=== PATIENT | male | born 1950 | race Caucasian/White ===

== ENCOUNTER 2018-09-25 20:41 | Inpatient (IN) ==
--- NOTE | 2018-09-25 21:37 | Diag Imaging Result Doc PS360 ---
EXAM: CHEST-2 VIEWS - 09/25/2018 HISTORY: weakness TECHNIQUE: Chest two views COMPARISON: None. FINDINGS: There is cardiomegaly. The lungs appear essentially clear. There is no pleural effusion or pneumothorax identified. There is S-shaped thoracic scoliosis noted. IMPRESSION: Cardiomegaly. No other evidence of acute disease. Electronically signed by Newton Jalloh 09/25/2018 9:35 PM
[2018-09-25 21:41] LABS: BASO# 0.01 X1000 (0.0-0.2); BASO% 0.1 % (0.0-0.8); EOS# 0.04 X1000 (0.0-0.7); EOS% 0.5 % (0.0-10.0); HEMOGLOBIN 13.9 g/dL (14.0-18.0); IMM GRAN# 0.02 X1000 (0.0-0.04); IMM GRAN% 0.3 % (0.0-0.5); LYMPH# 1.46 X1000 (1.2-3.4); LYMPH% 18.8 % (20.5-51.1); MCH 32.2 PG (27-31); MCHC 34.8 g/dL (33-37); MCV 92.6 FL (81-99); MONO# 0.86 X1000 (0.11-0.59); MONO% 11.1 % (1.7-9.3); MPV 11.4 FL (7.4-10.4); NEUT# 5.38 X1000 (1.4-6.5); NEUT% 69.2 % (42.2-75.2); PLT 197 X1000 (130-400); RBC 4.32 XMIL (4.7-6.1); RDW 12.7 % (11.5-14.5); WBC 7.77 X1000 (4.8-10.8)
[2018-09-25 21:49] LABS: INR 0.93; PROTIME 13.2 Seconds (11.0-16.0)
[2018-09-25 21:50] LABS: PTT 33.1 Seconds (22.3-41.8)
[2018-09-25 22:16] LABS: ALB/GLOB RATIO 1.2; ALBUMIN 3.8 g/dL (3.5-5.0); CREATININE 8.2 mg/dL (0.7-1.2); POTASSIUM 5.8 mmol/L (3.5-5.1); TOTAL BILIRUBIN 0.81 mg/dL (0.20-1.00)
[2018-09-25 22:47] LABS: CK INDEX 0.6 (0.0-2.5); CK-MB 10.17 ng/mL (0.0-5.0)
[2018-09-26] MEDS ORDERED: MORPHINE IV ONE (00:20)
[2018-09-26] MEDS ORDERED: CALCIUM GLUCONATE 1 GM in NS 50 ML IV ONE (01:28)
[2018-09-26] MEDS ORDERED: KAYEXALATE PO ONE (01:28)
[2018-09-26] MEDS ORDERED: NS 1,000 ML IV ONE (01:28)
[2018-09-26] MEDS ORDERED: SODIUM BICARBONATE 8.4% IV ONE (01:28)
--- NOTE | 2018-09-26 01:34 | PROVIDER DOCUMENTATION ---
This chart was entered by Magali Soria Scribe, acting as scribe for Gerald Matos MD. HPI-General Adult - General Chief Complaint: Weakness Stated Complaint: FALL Time Seen by Provider: 09/26/18 00:02 Source: patient, family - History of Present Illness -Gen Adult Nature of Presenting Problems: 68 yom presents to er w/ family w/ c/o falling 2x the past 3 days. pt fell saturday, acc to daughter and pt didn't remember falling and was confused. pt fell tonight in bathroom. pt was seated in handicap chair and it broke and fell on bathroom floor. pt using wheelchair this week due to falling. pt is type 2 dm and blood sugar has been high, was last checked 480-490 in june. pt daughter checked sugar today and it was 240. pt states thighs hurt and 8/10 in pain. pt also has rash on chest that appeared this past week and is having tremors. family is at bedside. pt followed by dr. cabrera. pt denies loc and head injury. Review of Systems - Adult - REVIEW OF SYSTEMS - ADULT Constitutional: reports: no symptoms reported. denies: chills, fever Eyes: reports: no symptoms reported Ears, Nose, Mouth & Throat: reports: no symptoms reported Cardiovascular: reports: no symptoms reported. denies: chest pain Respiratory: reports: no symptoms reported. denies: shortness of breath Gastrointestinal: reports: no symptoms reported. denies: abdominal pain, diarrhea, nausea, vomiting Genitourinary: reports: no symptoms reported Musculoskeletal: reports: see HPI, other (bilat thigh pain) Integumentary: reports: see HPI, rash (chest). denies: hair loss, itching, mole changes, skin sores/ulcer, skin thickening Neurological: reports: see HPI, loss of balance, other (fall x2 in 3 days). denies: ataxia, headache/migraines, seizure, slurred speech, syncope Psychiatric: reports: no symptoms reported Endocrine: reports: no symptoms reported Hematologic/Lymphatic: reports: no symptoms reported Allergic/Immunologic: reports: no symptoms reported All Other Systems: Reviewed and Negative Past History - Adult - PAST MEDICAL HISTORY-ADULT Review of Records: reports: Old Records Reviewed, Nursing Assessment Review, Medications Reviewed, Social history reviewed & non-contributory. Major Childhood Illnesses: reports: denies history Cardiovascular: reports: denies history Respiratory: reports: denies history Gastrointestinal: reports: denies history Obstetrical/Gynecological: reports: denies history Genitourinary: reports: denies history Musculoskeletal: reports: denies history Neurological: reports: denies history Endocrine/Immune: reports: denies history, Diabetes Other Conditions: reports: denies history - IMMUNIZATION STATUS Childhood Immunizations: See Nurse Assessment Flu Vaccine: See Nurse Assessment - FAMILY HISTORY Family History: reviewed, not pertinent Physical Exam-General - PHYSICAL EXAM-ADULT Initial Vital Signs Reviewed: Yes - CONSTITUTIONAL General Appearance: appears well, alert, no apparent distress, obese. negative: anxious, lethargic, slow to respond - EYES Eyes: PERRL/EOMI, pink conjunctivae - HEAD, EARS, NOSE, MOUTH & THROAT HENMT: normocephalic/atraumatic, moist mucous membranes, normal ENT inspection - NECK Neck: non-tender, full range of motion, supple, normal inspection - RESPIRATORY Respiratory: chest non-tender, lungs clear, normal breath sounds - CARDIOVASCULAR Cardiovascular: normal peripheral pulses, regular rate, rhythm - GASTROINTESTINAL (ABDOMEN) Abdominal Exam: normal bowel sounds, non tender, soft - LYMPHATIC Lymphatic: no adenopathy - MUSCULOSKELETAL Back Exam: normal inspection, no CVA tenderness, no vertebral tenderness Extremity: normal range of motion, non-tender, normal inspection, pedal edema (lower extremities.). negative: no pedal edema - SKIN Integumentary: normal color, normal turgor, warm/dry - NEUROLOGIC Neurologic: grossly normal, no motor/sensory deficits - PSYCHIATRIC Psych/Mental Status: normal mood/affect, normal thought content, normal thought process, oriented x 3 Progress - PLAN OF CARE/RESULTS Progress/Plan/Lab Results: Vital Signs - 8 hr 09/25/18 21:01 09/25/18 23:47 Temperature 97.8 F 97.6 F Pulse Rate 76 71 Respiratory Rate 18 20 Blood Pressure 111/67 150/89 O2 Sat by Pulse Oximetry 97 98 Laboratory Results - last 24 hr 09/25/18 09/25/18 09/25/18 21:20 21:20 21:20 WBC 7.77 RBC 4.32 L Hgb 13.9 L Hct 40.0 L MCV 92.6 MCH 32.2 H MCHC 34.8 RDW Std Deviation 12.7 Plt Count 197 MPV 11.4 H Immature Gran % (Auto) 0.3 Neut % (Auto) 69.2 Lymph % (Auto) 18.8 L Jerome % (Auto) 11.1 H Eos % (Auto) 0.5 Baso % (Auto) 0.1 Immature Gran # (Auto) 0.02 Neut # (Auto) 5.38 Lymph # (Auto) 1.46 Jerome # (Auto) 0.86 H Eos # (Auto) 0.04 Baso # (Auto) 0.01 PT 13.2 INR 0.93 PTT (Actin FS) 33.1 Sodium 137 Potassium 5.8 H Chloride 99 Carbon Dioxide 20 L Anion Gap 18 BUN 64 H Creatinine 8.2 H Estimated GFR/1.73 m2 7 BUN/Creatinine Ratio 8 Glucose 113 H POC Glucose Calculated Osmolality 293 Calcium 9.0 Total Bilirubin 0.81 AST 58 H ALT 157 H Alkaline Phosphatase 133 H Creatine Kinase 1593 H Creatine Kinase Index 0.6 CK-MB (CK-2) 10.17 H Troponin T Total Protein 7.0 Albumin 3.8 Globulin 3.2 Albumin/Globulin Ratio 1.2 09/25/18 09/25/18 21:20 21:27 WBC RBC Hgb Hct MCV MCH MCHC RDW Std Deviation Plt Count MPV Immature Gran % (Auto) Neut % (Auto) Lymph % (Auto) Jerome % (Auto) Eos % (Auto) Baso % (Auto) Immature Gran # (Auto) Neut # (Auto) Lymph # (Auto) Jerome # (Auto) Eos # (Auto) Baso # (Auto) PT INR PTT (Actin FS) Sodium Potassium Chloride Carbon Dioxide Anion Gap BUN Creatinine Estimated GFR/1.73 m2 BUN/Creatinine Ratio Glucose POC Glucose 129 H Calculated Osmolality Calcium Total Bilirubin AST ALT Alkaline Phosphatase Creatine Kinase Creatine Kinase Index CK-MB (CK-2) Troponin T 0.064 Total Protein Albumin Globulin Albumin/Globulin Ratio Orders Category Date Time Status Cardiac Monitoring DIRECTED Care 09/25/18 21:04 Active Finger Stick Blood Sugar (ED) DIRECTED Care 09/25/18 21:04 Active Oxygen Therapy- ED Nursing DIRECTED Care 09/25/18 21:04 Active Saline Loc NOW Care 09/25/18 21:04 Active CHEST-2 VIEWS [RAD] Stat Exams 09/25/18 21:05 Completed CBC WITH ELECTRONIC DIFF [HEME] Stat Lab 09/25/18 21:20 Completed CK PROFILE [SP CHEM] Stat Lab 09/25/18 21:20 Completed COMPREHENSIVE METABOLIC PANEL [CHEM] Stat Lab 09/25/18 21:20 Completed PROTIME WITH INR [COAG] Stat Lab 09/25/18 21:20 Completed PTT [COAG] Stat Lab 09/25/18 21:20 Completed TROPONIN T Stat Lab 09/25/18 21:20 Completed Altered Mental Status Stat Oth 09/25/18 21:04 Ordered EKG [EKG] Stat Ther 09/25/18 21:04 Ordered Result Diagrams: 09/25/18 21:20 09/25/18 21:20 - EKG 1 Time of EKG reading by physician:: 20:58 EKG Read and Signed by:: Gerald Matos EKG Interpretation (*Must complete 3 of following elements*): Abnormal Rate: 76 Rhythm: NSR Thicket: left QRS: RBB NV Interval: normal Departure - Departure Date of Disposition Decision: 09/26/18 Time of Disposition Decision: 01:33 DIAGNOSIS: Hyperkalemia CKD (chronic kidney disease) Qualifiers: Chronic kidney disease stage: unspecified stage Qualified Code(s): N18.9 - Chronic kidney disease, unspecified Rhabdomyolysis Qualifiers: Rhabdomyolysis type: non-traumatic Qualified Code(s): M62.82 - Rhabdomyolysis Fall Qualifiers: Encounter type: initial encounter Qualified Code(s): W19.XXXA - Unspecified fall, initial encounter Disposition: ADMITTED INPATIENT 09 Certified Medical Emergency: Emergent Condition: Fair Referrals and Follow-Ups: Charanjit Cabrera MD [Primary Care Provider] - - Critical Care Note This patient required my direct & personal management of CC.: No Attestation - Physician/ HARINDER Attestation Patient care was provided by Advanced Practice Provider:: No The physician spent face to face time with patient:: Yes Advanced Practice Provider documentation review:: Supervising physician onsite and consulted in the evaluation and care of this patient. The physician did have a face to face encounter with the patient. This chart was documented by the indicated scribe, (Magali Soria Scribe) and accurately reflects the services I performed and decisions made by , Gerald Matos MD, as attested by the provider's signature.
[2018-09-26] MEDS ORDERED: TYLENOL PO PRN (02:01)
[2018-09-26] MEDS ORDERED: ZOFRAN IV PRN (02:01)
[2018-09-26] MEDS: HEPARIN SUBQ SCH ×3 (02:45→18:38)
[2018-09-26 03:43] LABS: HEMOGLOBIN A1C 8.9 % (4.8-6.0)
--- NOTE | 2018-09-26 05:15 | HISTORY AND PHYSICAL ---
CHIEF COMPLAINT: Weakness with 2 recent falls. HISTORY OF PRESENT ILLNESS: This is a 68-year-old male who comes to the emergency room with his family. He had a complaint of falling 2 times in the past 3 days. Apparently he fell on Saturday. According to the daughter he did not remember falling and was somewhat confused at that time, however, did not seek medical attention. Tonight he was sitting in the shower on the handFlatBurgerp chair which collapsed and he fell on the bathroom floor. He did not hit his head. He did not have loss of consciousness. He did not have any real complaint with the fall other than just feeling weak. He stated that he felt like the lower portions of his legs just were not responding as well as he wanted them to. He has a history of diabetes mellitus type 2, however, he does not check his blood sugar very frequently. Apparently it was in the 480 or 490 range in June. They checked his blood sugar today and it was found 240. The patient is followed outpatient by Dr. Cabrera; reportedly had labs around 9 months ago, however, we are unsure of his baseline. In the emergency room his laboratory data showed a BUN of 64 and a creatinine of 8.2. He will be admitted for further evaluation and treatment. PAST MEDICAL HISTORY: Diabetes mellitus type 2, diabetic neuropathy, hypertension, hyperlipidemia. PREVIOUS SURGICAL HISTORY: Bilateral knee arthroscopy. SOCIAL HISTORY: He is from [place], [place]. He has recently moved here. His son is at bedside. He has around 3 liquor drinks a night. No illicit drugs, no tobacco. FAMILY HISTORY: Positive for diabetes mellitus in both parents. He denied any cardiac issues or cancers in first-degree relatives. ALLERGIES: Amoxicillin. HOME MEDICATIONS: 1. Neurontin 300 mg p.o. at bedtime. 2. Lisinopril 20 mg p.o. b.i.d. 3. Meclizine 25 mg p.o. at bedtime. 4. Metformin 1000 mg p.o. b.i.d. 5. Atorvastatin 10 mg p.o. daily. 6. Glipizide 10 mg p.o. daily. REVIEW OF SYSTEMS: A 14-point review of systems was conducted with the patient. Pertinent positives listed above in the HPI. All other systems reviewed and found to be negative. PHYSICAL EXAMINATION: VITAL SIGNS: Temperature 97.6, pulse 71, respirations 20, blood pressure 150/89, oxygen saturation 98% on room air. GENERAL: A very pleasant 68-year-old male lying in the ER stretcher, answers all questions appropriately. Son is at bedside, very attentive. The patient is in no acute distress. HEENT: The head is atraumatic and normocephalic. Pupils are equal, round, and reactive to light. Extraocular eye movements are intact. The sclerae are anicteric. Conjunctivae are pink. Oral mucosa is moist. NECK: Supple. No JVD, no thyromegaly. Trachea is midline. No cervical lymphadenopathy. CARDIAC: S1, S2 appreciated. A 2/6 systolic ejection murmur. No gallops, no rubs. LUNGS: Clear to auscultation bilaterally. No rhonchi, wheezes or rales. Symmetrical rise and fall with respirations. ABDOMEN: Protuberant. Soft. Nondistended and nontender. Bowel sounds present in all 4 quadrants. Normoactive. No pulsatile masses, no organomegaly. EXTREMITIES: No clubbing or cyanosis. Thickening of bilateral lower extremity nail beds noted. Decreased pedal pulses bilaterally. Trace nonpitting edema of bilateral lower extremities mid calf to foot. GENITOURINARY: No bladder distention. Otherwise deferred. NEUROLOGICAL: Alert and oriented x3. Cranial nerves II through XII grossly intact. DIAGNOSTIC DATA: Chest x-ray shows cardiomegaly. EKG showed a right bundle- branch block with left axis deviation, rate of 76. CT of the head results are still pending. Hip and pelvis x-ray: No acute fracture. LABORATORY DATA: WBC 7.77, hemoglobin 13.9, hematocrit 40, platelet count 197,000. Coagulations within normal limits. Sodium 137, potassium 5.8, chloride 99, carbon dioxide 20, BUN 64, creatinine 8.2, glucose 113. CK 1593. AST 58, ALT 157. ASSESSMENT AND PLAN: 1. Acute kidney injury versus acute kidney injury on chronic kidney disease. We do not know the patient's baseline. Will give normal saline at 125 mL/hour, consult Dr. Velazco. The patient was mildly hyperkalemic. This was treated. Will recheck potassium this morning. Send urine samples, also collect urine sodium. Retroperitoneal ultrasound to rule out obstruction. 2. Hyperlipidemia. Continue atorvastatin. 3. Hypertension. Hold lisinopril as this likely caused some of the problems with the patient's kidneys. Will add hydralazine 10 mg IV p.r.n. for a systolic blood pressure greater than 165. 4. Diabetes mellitus type 2. Hold metformin and sulfonylurea. Start sliding scale insulin with fingerstick blood sugar. Check hemoglobin A1c. 5. Will also check echocardiogram related to the patient's murmur and cardiomegaly. We do not have a baseline. The patient had thickening of his nail beds and decreased pulses. Will check an arterial Doppler to rule out peripheral arterial disease. 6. Further recommendations per the patient's clinical course. Dictated by RALF Saul for Comfort Lyman MD cc: RALF Saul MD Rodney W. Harney, MD Exam of patient done by me revealed + 1 edema in leg, 2-3/ ESM and mild bibasilar creps. I suspect that his presentation is more of an acute on chronic kidney insufficiency picture 2/2 both diabetic and hypertensive nephropathy. He also an obstructive uropathic picture and will need to be on flomax if PVR>100. Pt's clinical picture was also suggestive of PAD and will require an elective work up to rule out CAD at a later date. JARRELL
[2018-09-26 06:58] LABS: URINE SOURCE VOIDED
[2018-09-26 07:00] LABS: BILIRUBIN URINE NEGATIVE (NEGATIVE); BLOOD URINE MODERATE (NEGATIVE); COLOR YELLOW; GLUCOSE URINE TRACE mg/dL (NEGATIVE); KETONE URINE NEGATIVE (NEGATIVE); LEUKOCYTES URINE LARGE (NEGATIVE); NITRITE URINE NEGATIVE (NEGATIVE); PH URINE 5.5; PROTEIN URINE 100 mg/dL (NEGATIVE); SP GRAVITY URINE 1.011; TURBIDITY URINE TURBID (CLEAR); UROBILINOGEN URINE NORMAL (NORMAL)
--- NOTE | 2018-09-26 07:03 | EKG Report ---
Test Performed on : 09/25/2018 8:58:20 PM Test Reason : WEAKNESS Blood Pressure : / mmHG Vent. Rate : 076 BPM Atrial Rate : 076 BPM P-R Int : 182 ms QRS Dur : 160 ms QT Int : 430 ms P-R-T Axes : 032 -76 -13 degrees QTc Int : 483 ms Normal sinus rhythm. Left axis deviation Right bundle branch block Abnormal ECG No previous ECGs available Unconfirmed Result
[2018-09-26 07:09] LABS: UR EPITHELIAL CELLS >10 /HPF (<10); URINE BACTERIA NEGATIVE /HPF; URINE RBC TNTC /HPF (<10); URINE WBC TNTC /HPF (<10)
--- NOTE | 2018-09-26 07:12 | Diag Imaging Result Doc PS360 ---
EXAM: CT HEAD W/O CONTRAST 09/26/2018 HISTORY: fall TECHNIQUE: This exam was performed using automated exposure control, adjustment of mA or kV according to patient size, and/or use of iterative reconstruction technique. COMMENT: There are calcifications in the globus pallidus bilaterally. There is no evidence of mass effect, bleed, or abnormal extra-axial fluid collection. There is no evidence of acute bony disease. There is persistence the metopic suture. The paranasal sinuses are clear. IMPRESSION: No evidence of acute intracranial disease. Electronically signed by Kirit Barber 09/26/2018 7:10 AM
[2018-09-26 07:55] LABS: UR CREAT RANDOM 103.2 mg/dL (14-26); UR PROT RANDOM 171.1 mg/dL
[2018-09-26 08:01] LABS: URINE YEAST PRESENT
--- NOTE | 2018-09-26 08:02 | Diag Imaging Result Doc PS360 ---
EXAM: PELVIS INDICATION: fall, hip pain TECHNIQUE: One view COMPARISON: None. FINDINGS: No discrete fracture or dislocation is appreciated. There is superior joint space narrowing at the left hip. There is mild bone spurring at the acetabular roofs bilaterally. Surrounding soft tissues are essentially unremarkable. IMPRESSION: No acute osseous abnormality appreciated. Electronically signed by Layo Soria 09/26/2018 8:00 AM
[2018-09-26 09:00] LABS: CALCIUM 8.2 mg/dL (8.8-10.2); CREATININE 8.7 mg/dL (0.7-1.2); MAGNESIUM 2.1 mg/dL (1.5-2.7); POTASSIUM 5.8 mmol/L (3.5-5.1)
[2018-09-26] MEDS: LIPITOR PO SCH (09:44)
--- NOTE | 2018-09-26 10:28 | Diag Imaging Result Doc PS360 ---
EXAM: US RENAL 2 (RETROPER) COMPLETE INDICATION: obstruction? TECHNIQUE: COMPARISON: None. FINDINGS: The kidneys are grossly normal in echotexture with no renal mass or hydronephrosis. The right kidney measures 13.8 cm and the left kidney measures 14.6 cm in the greatest longitudinal axes. Both renal cortices measure up to 1.7 cm in thickness. The urinary bladder is nondistended. Incidental note is made of shadowing stones in the gallbladder lumen. The gallbladder is contracted resulting in a thickened wall. The common bile duct is nondilated. There is trace fluid adjacent to the gallbladder. IMPRESSION: 1.Unremarkable kidneys. No evidence of hydronephrosis. 2.Incidental cholelithiasis with trace fluid adjacent to the gallbladder. Please correlate clinically. Electronically signed by Layo Soria 09/26/2018 10:26 AM
[2018-09-26] MEDS ORDERED: D50W SYRINGE IV ONE (11:34)
[2018-09-26] MEDS ORDERED: ALBUTEROL 0.5% INH CONC FOR HYPERKALEMIA INH ONE (11:35)
[2018-09-26] MEDS ORDERED: HUMULIN R IV ONE (11:35)
[2018-09-26] MEDS ORDERED: ALBUTEROL 0.5% INH CONC FOR HYPERKALEMIA ONE (14:21)
[2018-09-26 15:34] LABS: ALBUMIN 3.1 g/dL (3.5-5.0); CALCIUM 7.8 mg/dL (8.8-10.2); CREATININE 8.8 mg/dL (0.7-1.2); PHOSPHORUS 4.7 mg/dL (2.7-4.5); POTASSIUM 5.5 mmol/L (3.5-5.1)
--- NOTE | 2018-09-26 16:46 | ECHO REPORT ---
ORDER DATE: 09/26/2018 INDICATION FOR THE STUDY: Diabetes, hypertension, evaluate LV function. FINDINGS: 1. The right atrium is moderately enlarged with a dimension of 4.9 cm. 2. Mild tricuspid regurgitation. RV systolic pressure is 62 suggesting pulmonary hypertension. 3. The right ventricle appears enlarged with mild reduction in RV systolic function. 4. Trace pulmonic insufficiency. 5. Mild left atrial enlargement with a volume index of 29 and a dimension of 4 cm. 6. No mitral valve prolapse. Mild mitral regurgitation. There is no evidence of mitral stenosis. 7. Upper limits of normal LV size with a dimension of 5.7 cm. Mild to moderate left ventricular hypertrophy with a posterior and interventricular septal wall thickness of 1.4 cm each. Normal LV systolic function. Estimated EF of 55% to 60% with normal wall motion. 8. Aortic valve is calcified with restriction in motion consistent with severe aortic stenosis. The peak gradient across valve is 64 with a mean of 46. The valve area is 0.8 cm2 by the continuity equation. There is mild aortic insufficiency. 9. Aorta appears normal in visualized segments. 10. No pericardial effusion seen. cc: MD Elton Davison CRNP
--- NOTE | 2018-09-26 17:18 | NEPHROLOGY CONSULTATION ---
DATE: 09/26/2018 REASON FOR CONSULTATION: Acute kidney injury. HISTORY OF PRESENT ILLNESS: Mr. Severino is a 68-year-old man, who has lived in [place] for only several months. He was brought to the emergency room by his family because of falling. He has had 2 falls within the last week. He spent several hours on the floor during his first fall. He did not have loss of consciousness. He states his fall happened today because he got tangled up with a seat that he had in the shower. His appetite has been okay. No nausea or vomiting. He does have swelling in the legs that has been present at least several weeks. No chills, fevers, sweats, night sweats, etc. He has no history of kidney disease and has been seen in [place] only briefly by Dr. Charanjit Cabrera, but kidney problems were not mentioned. We have reached out to his office, but they were closed already for the day. He does not monitor his diabetes with any sort of regularity, and his medication follow-up is dubious. He has been taking his gabapentin and does relate some gait instability. PAST MEDICAL HISTORY: Diabetes, hypertension, hyperlipidemia, alcoholism. HOME MEDICATIONS: Include gabapentin, lisinopril, meclizine, metformin, atorvastatin, glipizide. SOCIAL HISTORY: As above. He does not use tobacco. He recently moved here from the [place] area FAMILY HISTORY: Not helpful otherwise. REVIEW OF SYSTEMS: Not helpful otherwise. PHYSICAL EXAMINATION: Blood pressure 126/66, heart rate 76, respirations 20, afebrile. Generally, he is an elderly man, appears older than his stated age, but no acute distress. Skin is warm and dry. Conjunctivae are pink. Pupils are equal. Oropharynx is clear. Normal tongue. Normal teeth. Neck veins are not appreciated. Trachea is midline. PMI nondisplaced, regular rate and rhythm without murmurs, rubs, or gallops. Lungs have equal breath sounds, no crackles or wheezes. Abdomen is soft, nontender. Bowel sounds present. No organomegaly or masses. Extremities have 1+ edema with venous stasis changes. No clubbing or cyanosis. Neurologic exam is grossly nonfocal. IMPRESSION: 1. Acute kidney injury. Etiology is not obvious. Renal ultrasound with normal size kidneys and normal echotexture, 1.7 cm of cortex bilaterally, no hydronephrosis. His urine today had 2+ protein and 2+ blood. Urine protein/creatinine ratio 1.7. Urine sodium was 58. We will continue with IV fluid challenge through the day today. I will attempt to obtain the old lab data from Dr. Cabrera's office when available. 2. His CK was moderately elevated at 1593, and it is certainly possible that he has resolving rhabdomyolysis. 3. His lisinopril, metformin, gabapentin, and atorvastatin have all been appropriately withheld. Continue his IV fluids and we will reassess in the morning. cc: Isidro Velazco MD
[2018-09-26 18:28] LABS: URINE SOURCE CATH
[2018-09-26 18:31] LABS: BILIRUBIN URINE NEGATIVE (NEGATIVE); BLOOD URINE MODERATE (NEGATIVE); COLOR YELLOW; GLUCOSE URINE TRACE mg/dL (NEGATIVE); KETONE URINE NEGATIVE (NEGATIVE); LEUKOCYTES URINE LARGE (NEGATIVE); NITRITE URINE NEGATIVE (NEGATIVE); PROTEIN URINE 100 mg/dL (NEGATIVE); SP GRAVITY URINE 1.008; TURBIDITY URINE HAZY (CLEAR); UROBILINOGEN URINE NORMAL (NORMAL)
[2018-09-26 18:38] LABS: UR EPITHELIAL CELLS >10 /HPF (<10); URINE BACTERIA NEGATIVE /HPF; URINE RBC TNTC /HPF (<10); URINE WBC TNTC /HPF (<10)
[2018-09-26] MEDS: NS 1,000 ML IV SCH (18:38)
[2018-09-26 18:52] LABS: URINE CASTS NONE SEEN; URINE CRYSTALS NONE SEEN; URINE SMALL ROUND CELLS NONE SEEN; URINE YEAST PRESENT
[2018-09-26] MEDS: HUMULIN R SUBQ SCH (22:17)
[2018-09-27] MEDS: HEPARIN SUBQ SCH ×2 (06:47→21:41)
[2018-09-27] MEDS: HUMULIN R SUBQ SCH ×2 (06:48→21:39)
[2018-09-27 06:50] LABS: BASO# 0.01 X1000 (0.0-0.2); BASO% 0.2 % (0.0-0.8); EOS# 0.06 X1000 (0.0-0.7); HEMATOCRIT 36.2 % (42.0-52.0); HEMOGLOBIN 12.5 g/dL (14.0-18.0); IMM GRAN# 0.02 X1000 (0.0-0.04); IMM GRAN% 0.3 % (0.0-0.5); LYMPH# 1.38 X1000 (1.2-3.4); LYMPH% 22.9 % (20.5-51.1); MCH 32.6 PG (27-31); MCHC 34.5 g/dL (33-37); MCV 94.5 FL (81-99); MONO# 0.72 X1000 (0.11-0.59); MONO% 11.9 % (1.7-9.3); MPV 11.1 FL (7.4-10.4); NEUT# 3.84 X1000 (1.4-6.5); NEUT% 63.7 % (42.2-75.2); PLT 171 X1000 (130-400); RBC 3.83 XMIL (4.7-6.1); RDW 12.6 % (11.5-14.5); WBC 6.03 X1000 (4.8-10.8)
[2018-09-27 07:28] LABS: ALBUMIN 3.1 g/dL (3.5-5.0); CALCIUM 7.2 mg/dL (8.8-10.2); CREATININE 9.7 mg/dL (0.7-1.2); PHOSPHORUS 5.6 mg/dL (2.7-4.5); POTASSIUM 5.5 mmol/L (3.5-5.1)
[2018-09-27] MEDS ORDERED: HEPARIN IV PRN (08:41)
[2018-09-27] MEDS ORDERED: NS 2,000 ML MISC PRN (08:41)
[2018-09-27] MEDS ORDERED: TIGHT: 0.2 ML/HR FOR DIALYSIS MISC PRN (08:41)
[2018-09-27] MEDS: NS 1,000 ML IV SCH (08:53)
[2018-09-27] MEDS ORDERED: AMIDATE ONE (09:04)
[2018-09-27] MEDS ORDERED: HEPARIN ONE (09:21)
[2018-09-27] MEDS ORDERED: NS 250 ML ONE (09:22)
[2018-09-27] MEDS ORDERED: XYLOCAINE 1% ONE (09:22)
[2018-09-27] MEDS ORDERED: VANCOMYCIN 1 GM/NS 1 GM/250 ML IVPB ONE (09:22)
[2018-09-27] MEDS ORDERED: KETAMINE ONE (09:25)
--- NOTE | 2018-09-27 09:27 | GENERAL SURGERY CONSULTATION ---
DATE: 09/27/2018 PRIMARY COMPLAINT: Acute renal failure. HISTORY: 68-year-old admitted with recent falls. He has diabetes mellitus, hypertension, hyperlipidemia. He is noted to have worsening of his renal function with a creatinine up to 9.7. Potassium 5.. I have been asked to place a tunneled catheter for acute dialysis. PAST SURGICAL HISTORY: Previous surgery includes knee arthroscopy. SOCIAL HISTORY: He has moved here from [place]. He is . He does drink 3 drinks. Denies tobacco or illicit drugs. He has a daughter is bedside currently. FAMILY HISTORY: Pertinent for diabetes. MEDICATIONS: Listed. ALLERGIES: He is allergic to amoxicillin. REVIEW OF SYSTEMS: Pertinent for his recent falls of uncertain etiology. EXAM: Vital Signs: He is afebrile. Heart rate 73, blood pressure 120/70. Neck: No cervical adenopathy. Lungs: Bilateral breath sounds. Heart: Regular rate and rhythm. Abdomen: Soft. Extremities: He does have some peripheral edema. Neurologic: He is awake and alert. ASSESSMENT: Acute renal failure. PLAN: A tunnel dialysis catheter is requested by Dr. Velazco. We will plan to proceed today. cc: [place] Granda MD
[2018-09-27] MEDS ORDERED: XYLOCAINE-MPF 2% ONE (09:38)
[2018-09-27] MEDS ORDERED: EPHEDRINE ONE (09:38)
--- NOTE | 2018-09-27 15:25 | OPERATIVE NOTE ---
PROCEDURE DATE: 09/27/2018 PROCEDURE: Right-sided total dialysis catheter placement with ultrasound and fluoroscopic guidance. SURGEON: [place] Granda MD. SHEET HEATER: Rachel Blanca. PREOPERATIVE DIAGNOSIS: Acute renal failure. POSTOPERATIVE DIAGNOSIS: Acute renal failure. DESCRIPTION OF PROCEDURE: Satisfactory general anesthesia was achieved. An LMA was used. The right side of the neck and upper anterior chest were prepped and draped in a sterile fashion. We anesthetized the skin of the neck. We used an ultrasound to guide our location into the internal jugular vein. The local was then used to anesthetize the skin, an 11 stab blade was used. We then accessed the internal jugular vein. We then passed the guidewire into the superior vena cava under fluoroscopic guidance. We had chosen a 24 cm precurved catheter, a [place]. We anesthetized the skin below the clavicle, made a stab incision, and tunnelled a catheter from the subclavian incision up to the neck incision. We then dilated the tract sequentially and passed the dilator and introducer sheath over the guidewire. We removed the dilator and guidewire and introduced the sheath GlidePath past catheter into the superior vena cava. We were able to aspirate and irrigate each lumen easily. We then flushed or used strong heparin 5000 units/mL in each lumen, putting 1.9 mL in one lumen and 1.9 in other lumen. We secured the flange to the skin with a nylon a 3-0 nylon. We then closed the skin of the neck incision with a 4 Polysorb subcuticular stitch. Steri-Strips, and OpSite dressings were applied. He tolerated it well. Was sent to the recovery room in satisfactory condition. cc: MD Isidro Lopez MD
--- NOTE | 2018-09-27 16:10 | NEPHROLOGY PROGRESS NOTE ---
DATE: 09/27/2018 SUBJECTIVE: He has no new complaints today. No shortness of breath. No nausea or vomiting. OBJECTIVE: Vital Signs: Blood pressure 120/70, heart rate 91, respiration 18, afebrile. Intake 780 mL. Output 375 mL. General: No acute distress. Skin: Warm and dry. Neck: Neck veins are 6 to 8 cm. Trachea is midline. Heart: Regular. No gallops or murmurs. Lungs: Have equal breath sounds. No crackles or wheezes. Abdomen: Soft, nontender. Bowel sounds present. Extremities: With 2+ edema. No clubbing or cyanosis. IMPRESSION: Acute kidney injury. Presumed. Low urine output and rising BUN and creatinine despite intravenous fluids. No obstruction by ultrasound. I counseled the patient and his family regarding the progression of his illness. I have asked Dr. Granda to place a tunneled dialysis catheter and we will begin treatment today with dialysis. We will check complements, ANCAs, RADHA, hepatitis profile etc. His initial urine had a large number of white cells and red blood cells with moderate protein. Culture thus far is negative. If he does not have an infection he may require a kidney biopsy. We discussed this. cc: Isidro Velazco MD
[2018-09-27 23:41] LABS: ALB/GLOB RATIO 1.1; ALBUMIN 3.3 g/dL (3.5-5.0); DIRECT BILIRUBIN 0.3 mg/dL (0.00-0.20); TOTAL BILIRUBIN 0.53 mg/dL (0.20-1.00); TOTAL PROTEIN 6.4 g/dL (6.3-8.3)
[2018-09-28 00:38] LABS: CK INDEX 0.7 (0.0-2.5); CK-MB 4.41 ng/mL (0.0-5.0)
[2018-09-28] MEDS ORDERED: PHENOBARBITAL IV ONE (01:25)
[2018-09-28] MEDS: NS 1,000 ML IV SCH (02:41)
[2018-09-28] MEDS: HEPARIN SUBQ SCH ×4 (06:42→21:01)
[2018-09-28 06:59] LABS: HEMATOCRIT 37.7 % (42.0-52.0); HEMOGLOBIN 12.9 g/dL (14.0-18.0); MCH 32.6 PG (27-31); MCHC 34.2 g/dL (33-37); MCV 95.2 FL (81-99); MPV 10.8 FL (7.4-10.4); RBC 3.96 XMIL (4.7-6.1); RDW 12.6 % (11.5-14.5)
[2018-09-28] MEDS ORDERED: INSULIN PEN NEEDLES ONE (07:16)
[2018-09-28 07:21] LABS: ALBUMIN 3.4 g/dL (3.5-5.0); DIRECT BILIRUBIN 0.3 mg/dL (0.00-0.20); TOTAL BILIRUBIN 0.62 mg/dL (0.20-1.00); TOTAL PROTEIN 6.8 g/dL (6.3-8.3)
--- NOTE | 2018-09-28 07:24 | Diag Imaging Result Doc PS360 ---
EXAM: CHEST-PORTABLE 09/28/2018 HISTORY: dyspnea TECHNIQUE: AP portable at 0554 COMMENT: There is a right internal jugular central venous catheter with its tip in the superior vena cava. There is cardiomegaly. The inspiration is less optimal than on 09/25/2018. Considering this there has been no significant change. IMPRESSION: Cardiomegaly. Electronically signed by Kirit Barber 09/28/2018 7:21 AM
[2018-09-28] MEDS: ATIVAN IV PRN ×2 (07:50→22:54)
--- NOTE | 2018-09-28 08:35 | PROGRESS NOTE ---
DATE: 09/27/2018 SUBJECTIVE: The patient is resting comfortably in bed. He underwent dialysis today. OBJECTIVE: Vital Signs: Temperature is 99.3, blood pressure 114/72, heart rate 88, respirations 18, O2 saturation 92% on 3 L nasal cannula. General: This is a chronically ill-appearing elderly male lying in bed in no acute distress. Heart: S1, S2 normal. Regular rate and rhythm. Lungs: Equal air entry bilaterally. No crackles. No rales. Abdomen: Positive bowel sounds. Soft, nontender, nondistended. Extremities: There is 2+ edema. No cyanosis. No calf tenderness. Neurologic: The patient is awake and alert. LABS: White blood cell count 6, hemoglobin 12, hematocrit 36, platelets 171. Sodium 132, potassium 5.5, chloride 96. CO2 is 18, BUN 77, creatinine 1.7, glucose 126. Phosphorus 5.6. ASSESSMENT/PLAN: 1. Acute kidney injury. The workup for the etiology is in progress. The patient was started on dialysis today. Further management as per Dr. Velazco. 2. Poorly controlled diabetes mellitus. The patient's hemoglobin A1c today is 8.9. We will start the patient on low-dose long-acting insulin. Will discontinue the metformin given the patient's renal failure, as well as the glipizide. Continue with sliding scale insulin. 3. Hyperkalemia. Addressed during dialysis. 4. Metabolic acidosis. Monitor. 5. Dyslipidemia. Continue on Lipitor. 6. Diabetic neuropathy. Aware. 7. Transaminitis. Hepatitis profile is currently pending. We will monitor the liver function tests closely and avoid acetaminophen. A renal ultrasound done yesterday reveals that the patient's gallbladder is contracted with a thickened wall. May need to consider a HIDA scan on Saturday. 8. Deep venous thrombosis prophylaxis. Continue on heparin. cc: MD JARRELL Day
[2018-09-28 08:41] LABS: ALBUMIN 3.5 g/dL (3.5-5.0); CALCIUM 7.8 mg/dL (8.8-10.2); CREATININE 8.7 mg/dL (0.7-1.2); PHOSPHORUS 5.8 mg/dL (2.7-4.5)
[2018-09-28 08:50] LABS: POTASSIUM 6.1 mmol/L (3.5-5.1)
[2018-09-28] MEDS ORDERED: HUMULIN R IV ONE (08:53)
[2018-09-28] MEDS ORDERED: ALBUTEROL 0.5% INH CONC FOR HYPERKALEMIA INH ONE (08:54)
[2018-09-28] MEDS ORDERED: SODIUM BICARBONATE 8.4% IV ONE (08:54)
[2018-09-28] MEDS ORDERED: D50W SYRINGE IV ONE (08:54)
[2018-09-28] MEDS ORDERED: CALCIUM GLUCONATE 1 GM in NS 50 ML IV ONE (08:55)
[2018-09-28] MEDS ORDERED: BASAGLAR SUBQ SCH (09:00)
[2018-09-28] MEDS ORDERED: VELTASSA PO SCH (09:00)
--- NOTE | 2018-09-28 09:41 | GENERAL SURGERY PROGRESS NOTE ---
DATE: 09/28/2018 SUBJECTIVE: Mr. Severino is arousable this morning. His total catheter site looks okay. Apparently, he dialyzed uneventfully yesterday. Today, his potassium is 6.1, BUN 50, creatinine 8.7. Dialysis necessity will be determined by Dr. Velazco. cc: Warren Granda MD
[2018-09-28] MEDS: LIPITOR PO SCH ×2 (09:56→09:57)
[2018-09-28] MEDS ORDERED: ASPIRIN PR ONE (11:04)
[2018-09-28] MEDS ORDERED: AZACTAM 1 GM in NS 50 ML IV ONE (11:37)
[2018-09-28] MEDS ORDERED: ZOFRAN IV PRN (11:38)
[2018-09-28] MEDS: PROTONIX IV SCH (11:52)
[2018-09-28] MEDS: SODIUM CHLORIDE 0.9% INJ SCH (11:52)
[2018-09-28 11:57] LABS: ALLEN TEST YES; BE -3.8 mmoll (-3.0-3.0); BLOOD TYPE ARTERIAL; HCO3-(ACT) 21.9 mmoll (20.0-26.0); METHB 0.9 % (0.0-1.5); O2(CT) 17.6 mL/dL (15.0-23.0); O2HB 95.2 % (95.0-99.0); PCO2(98.6) 43 mmHg (35-45); PO2(98.6) 95 mmHg (60-100); SAMPLE BLOOD; THB 13.1 g/dL (11.5-17.4); pH(98.6) 7.32 (7.35-7.45)
[2018-09-28 11:59] LABS: MODALITY CANNULA
[2018-09-28 12:10] LABS: CK INDEX 0.9 (0.0-2.5); CK-MB 4.26 ng/mL (0.0-5.0)
[2018-09-28] MEDS: HUMULIN R SUBQ SCH ×4 (12:40→20:19)
--- NOTE | 2018-09-28 14:17 | GASTROENTEROLOGY CONSULTATION ---
DATE: 09/28/2018 CONSULTING PHYSICIAN: Helga Kirkpatrick MD REASON FOR CONSULTATION: Dysphagia. HISTORY: This is a 68-year-old white male with multiple medical problems, including diabetes, hypertension, and diabetic neuropathy along with hyperlipidemia, who was admitted to the hospital after he has had multiple falls. The patient is in the room. He is obtunded and apparently sedated for treatment of his DT. His son was present at the bedside. The patient has recently been moved from [place] to this area. He had last seen Dr. Cabrera about 6 to 8 months ago. Apparently he had some blood work done but has not followed up with him. The son does not live with him; he has just moved him to this area. Apparently, the patient was living in an apartment, and the son tells me that he has history of heavy drinking and has been still drinking. The son who was present at his bedside since yesterday while he was in the hospital has noted that he has trouble eating and swallowing and is not able to eat much and agrees that was reason for consult was obtained to evaluate for dysphagia. The patient is not available and cannot answer questions. His son, however, tells me that he has not noticed any pain or discomfort while swallowing, and he has not had any hematemesis or coffee-ground emesis. The son complained that his abdomen has been distended, and again he has not been able to eat much. Unfortunately, not much other information could be obtained. The patient is apparently in DTs. He is transferred to the ICU for further treatment. In the meantime, while hospitalized, he was found to have acute renal insufficiency. He has been on dialysis as well. Other information obtained from the chart indicates that past medical history was diabetes, hypertension, hyperlipidemia, and diabetic neuropathy. MEDICATION: Currently he is on Lipitor, heparin subcutaneous for DVT precaution, Apresoline, Humulin, Ativan, Zofran, Protonix IV, and sodium chloride. ALLERGIES: Allergy reported is amoxicillin. FAMILY HISTORY AND REVIEW OF SYSTEMS: Could not be obtained as noted in the chart. PHYSICAL EXAMINATION: On examination, again patient is lying sedated or obtunded, not responding to questions. He is in the process of being transferred to the ICU. He is afebrile, temperature 98.8 degrees, pulse is 83 per minute, breathing 16, blood pressure 137/87. Eyes: Conjunctiva normal. Sclerae anicteric. Nose: Nares patent. No discharge. Has got nasal cannula in place. Mouth: Buccal mucosa is moist. Neck: Neck is supple. No lymphadenopathy. Chest: Clear to auscultate. Heart: Audible. No murmur. Abdomen: Distended, soft, nontender. Bowel sounds are audible. No pedal edema noted. DIAGNOSTIC STUDIES: Labs reviewed which showed WBC 8.0, hemoglobin was 12.9, hematocrit 37.7, MCV 95.2, platelets were 186. Sodium 135 potassium 6.1, chloride 96, bicarbonate 21, BUN is 50, creatinine 8.7, glucose 154. Ammonia was 19, AST 27, ALT 71, alkaline phosphatase 110, with total bilirubin of 0.62. IMPRESSION: Dysphagia at this point appears to be multifactorial. He has history of diabetes which most likely is uncontrolled. Ivania esophagitis is a possibility; however, peptic stricture or peptic reflux esophagitis are also a possibility. I doubt this is a neoplastic lesion that is the cause of his problems. At this point, he has to be managed medically for his delirium tremens, renal insufficiency, as well as other medical issues that are more pressing at this point. I will be following him during this time and continue his proton pump inhibitor. Once he is capable or stable enough to be sedated for endoscopic evaluation, we will do so. I have explained the plan is to the son, who was present bedside. He understood. All his pertinent questions were answered. cc: Zane Schaffer MD
--- NOTE | 2018-09-28 16:34 | Diag Imaging Result Doc PS360 ---
EXAM: US ABDOMEN-COMPLETE 09/28/2018 HISTORY: ascites/cirrhosis TECHNIQUE: Abdominal ultrasound COMMENT: The visualized portion of the body of the pancreas is normal in appearance. The liver is hyperechoic. Very poor detail is seen in some portions of the liver. There is antegrade flow in the portal vein. The gallbladder is nontender. It is not well seen and the stones demonstrated on 09/26/2018 are not demonstrated on today's study. The aorta and inferior vena cava are normal in appearance where there are visible. There is no evidence of biliary dilatation the common bile duct measuring less than 5 mm. The kidneys are without evidence of hydronephrosis or mass. The spleen is slightly enlarged measuring over 13.6 cm. There are no abnormal fluid collections. IMPRESSION: Hepatic steatosis and/or cirrhosis with borderline splenomegaly. No evidence of ascites. Electronically signed by Kirit Barber 09/28/2018 4:32 PM
--- NOTE | 2018-09-28 17:15 | CARDIOLOGY CONSULTATION ---
DATE: 09/28/2018 REQUESTED BY: Hospitalist Service. REASON: Patient with aortic stenosis. CHIEF COMPLAINT: Frequent falls, dyspnea, confusion. HISTORY: Mr. Severino is a very pleasant 68-year-old male who had lived many years in [place]. About a year ago. His family moved him over here to live in [place] and had been placed under the care of Dr. Charanjit Cabrera. The patient states that over the course of the past few days or weeks he has experienced a few falls and about three days prior to admission he had a bad fall and since then he has been practically wheelchair bound. Up until then, his mobility had gradually decrease from walking with a cane to walking with a walker and then after the fall that he experienced on Saturday three days prior to admission he had been practically wheelchair bound. The patient denies having chest pains; however, he has been experiencing increasing dyspnea and some swelling, fluid retention. The patient's weight has been creeping up. He currently weighs 280 pounds. Upon presentation, the patient was noted to have severe elevation of the creatinine level suggesting severe renal failure. This is probably chronic since his carbon dioxide was not terribly low and his calcium and phosphorus were not terribly abnormal. The patient received a 2D echocardiogram on September [address] Ian Ma indicating severe aortic stenosis with a mean gradient of 46 mmHg, maximum gradient of 64 mmHg, valve area of 0.8 cm2 which given his body surface area of 2.6 sq m, makes it a very small size valve for this patient's body size. The patient denies having syncopal episodes; however, the daughter states that he in the past has reported dizziness. Today, the patient has been confused and there is a concern for delirium tremens. He is not able to recall all past events. His past history seems to be positive for hypotension and some hyperlipidemia, as well as some chronic discomfort in the legs probably related to neuropathy. SURGICAL HISTORY: He has had arthroscopic left knee surgery. Lately he has complained of pain in the thighs. SOCIAL HISTORY: He was to his for about 12 years or so. He her. He has 2 children, Shabbir and Tierra, and both live here in [place] and they are the caregivers for the patient. The patient has never been a smoker; however, he drinks apparently consistently heavily. He used to work as a salesperson used cars. He went on jail about 6 years ago. He lived in the [place] area for many years. He was raised in [place] and that is where he met his . FAMILY HISTORY: Noncontributory for heart disease. HOME MEDICATIONS: At this time include: Atorvastatin 1 tablet daily, gabapentin 1 tablet at bedtime, lisinopril 1 tablet twice a day and meclizine 25 at bedtime. ALLERGIES: Amoxicillin. REVIEW OF SYSTEMS: Other than what I have reported in the HPI and past history, nothing significant. The patient has never had a stroke. No seizures. No syncope. No previous heart attack or heart failure. No hematemesis or hematochezia; however, he has had some dysphagia. He has no prior history of kidney problems or hematuria or genitourinary issues. He does have some musculoskeletal issues with discomfort in the legs. No previous vascular disease. No hearing or visual problems. No major skin disorders, until recent rash noted. No immunological issues. No hematological conditions that he is aware of. No easy bleeding. No easy bruising. PHYSICAL EXAMINATION: Vital Signs: Blood pressure 133/71, temperature 97, pulse 72, respirations 20. General: He is awake, alert, oriented, in no distress. Appears to be chronically ill. There is some rash subtle in the chest and face. HEENT: Unremarkable. Chest: Sounds clear to auscultation and percussion. Heart: Sounds regular rate and rhythm. He does have a prominent systolic murmur 2-3/6 over the aortic area. Abdomen: Soft, obese, nontender. No masses. No hepatomegaly. Extremities: Showed decreased pulses. There is 1+ edema bilaterally, brawny. Neurologic: Nonfocal. Moves 4 extremities. At times he is a little inappropriate; however, is not aggressive not combative. LABORATORY WORK: Hemoglobin is 12.9, platelet count is a 186,000, white cell count 8000. Blood gases on 4 L: PO2 is 95, pCO2 43, pH 7.32. Sodium 135, potassium 5.5 BUN 50, creatinine 8.7. ProBNP level has not been checked. TSH is 3.25, PTH is 206 mcg/mL which is 4 times baseline. Albumin is 3.4. Troponin is 0.064 and 0.040. CK index is low. Ammonia is 19. His ALT is 71, AST is 27. Chest x-ray on admission shows cardiomegaly. No evidence of acute disease. EKG is abnormal with sinus rhythm. A left axis deviation/left anterior fascicular block and a right bundle branch block. IMPRESSION AND PLAN: 1. Patient presenting with what appears to be uremic symptoms, encephalopathy probably related to combination of factors, including alcohol withdrawal. Frequent falls multifactorial. polyneuropathy? 2. Aortic stenosis, severe. Aortic valve index is very low given his body surface area of 2.58 sq m. 3. Abnormal EKG. 4. Morbid or near morbid obesity. 5. Hypertension. 6. Hyperlipidemia. 7. Severe renal insufficiency. acute on chronic. RECOMMENDATION: At this time, I will await the stabilization of his metabolic condition and his encephalopathy before pursuing any further cardiac testing. I believe it will be appropriate to perform a transesophageal echocardiogram as a 1st test and then proceed with coronary arteriography and right and left heart catheterization once the kidney function is stabilized, and then discuss with appropriate consulting physicians whether SAVR or TAVR may be appropriate for him. At any rate, at this time the patient appears to be hemodynamically stable. We are not going to perform any specific intervention on our part yet. I discussed this with the patient's son and daughter. cc: Yohan Wilson MD MTDD
--- NOTE | 2018-09-28 18:59 | PROGRESS NOTE ---
DATE: 09/28/2018 SUBJECTIVE: The patient was noted to be very confused last night. He pulled out multiple IVs and is now choking on his food. OBJECTIVE: Vital Signs: Temperature 98.3 degrees, blood pressure 112/99, heart rate 62, respirations 12, O2 saturations 100% on 4 L nasal cannula. Urine output 175 mL. General: This is a morbidly obese male lying in bed. Head: Normocephalic, atraumatic. Heart: S1, S2 normal, regular rate and rhythm, 3/6 systolic ejection murmur. Lungs: Diminished breath sounds bilaterally. No crackles, no rales. Abdomen: Positive bowel sounds. Soft, obese, nontender. Extremities: 1+ edema bilaterally. Neuro: The patient is oriented to person only. He is able to move all 4 extremities. LABS: White blood cell count 8, hemoglobin 12, hematocrit 37, platelets 186,000. ABG 7.32, pCO2 43, PO2 95, bicarb 21, sodium 135, potassium 5.5, chloride 96, CO2 21, BUN 50, creatinine 8.7, glucose 154, phosphorus 5.8, calcium 7.8. AST 27, ALT 71, alkaline phosphatase 110, CK 487. Abdominal ultrasound shows hepatic steatosis and/or cirrhosis with borderline splenomegaly. Chest x-ray shows cardiomegaly. ASSESSMENT AND PLAN: 1. Alcohol withdrawal. The patient's mental status has declined over the last 12 hours, we will start the patient on p.r.n. Ativan and transfer him to the ICU for closer monitoring. 2. Dysphagia. The patient has been choking on all of the food that he has tried to consume. Will make the patient NPO. The patient has been assessed by gastroenterology and they are awaiting stabilization of the patient's other medical issues before pursuing endoscopy. 3. Hyperkalemia. The patient's potassium this morning was 6.1. The patient was treated this morning and his potassium is now 5.5. The patient will likely be dialyzed tomorrow. 4. Acute kidney injury. Unchanged. The workup is in progress. Further management as per the retail product advisor. 5. Severe aortic stenosis. The patient has been assessed by the director of enrollment. We will continue to monitor closely. 6. Hepatic steatosis versus cirrhosis. Will await further recommendations from GI. 7. Alcohol dependence. Aware. 8. Diabetes mellitus type 2. The patient is currently on sliding scale insulin. 9. Morbid obesity. Aware. 10. Pulmonary hypertension. Aware. 11. Gastrointestinal prophylaxis. Continue on IV Protonix. 12. Deep vein thrombosis prophylaxis. Continue on heparin. 13. Disposition: I discussed the patient's medical condition with the patient's daughter, Tierra. cc: Helga Kirkpatrick MD MTDD
[2018-09-28] MEDS: DUONEB (A & A) INH SCH (21:51)
[2018-09-29] MEDS: DUONEB (A & A) INH SCH ×4 (04:30→22:16)
[2018-09-29] MEDS: HEPARIN SUBQ SCH ×3 (05:06→21:27)
[2018-09-29] MEDS ORDERED: NS 2,000 ML MISC PRN (05:42)
[2018-09-29] MEDS ORDERED: TIGHT: 0.2 ML/HR FOR DIALYSIS MISC PRN (05:42)
[2018-09-29] MEDS ORDERED: HEPARIN IV PRN (05:42)
[2018-09-29] MEDS: HUMULIN R SUBQ SCH ×4 (06:02→20:35)
[2018-09-29 06:45] LABS: HEMATOCRIT 36.4 % (42.0-52.0); HEMOGLOBIN 12.1 g/dL (14.0-18.0); MCH 32.1 PG (27-31); MCHC 33.2 g/dL (33-37); MCV 96.6 FL (81-99); MPV 10.4 FL (7.4-10.4); RBC 3.77 XMIL (4.7-6.1); RDW 12.5 % (11.5-14.5); WBC 6.14 X1000 (4.8-10.8)
--- NOTE | 2018-09-29 06:54 | Diag Imaging Result Doc PS360 ---
EXAM: CHEST-PORTABLE HISTORY: dyspnea TECHNIQUE: Portable chest single view COMPARISON: 09/28/2018 FINDINGS: The lungs are well expanded. The heart is mildly enlarged. There is mild pulmonary edema which is slightly more prominent than on the prior study. No pleural effusions identified. No change in the right jugular line. IMPRESSION: Mild interval worsening. Electronically signed by David Lopez 09/29/2018 6:52 AM
--- NOTE | 2018-09-29 07:06 | EKG Report ---
Test Performed on : 09/28/2018 11:35:44 AM Test Reason : hyperkalemia Blood Pressure : / mmHG Vent. Rate : 087 BPM Atrial Rate : 087 BPM P-R Int : 198 ms QRS Dur : 176 ms QT Int : 428 ms P-R-T Axes : 028 -78 -11 degrees QTc Int : 515 ms Normal sinus rhythm. Left axis deviation Right bundle branch block Possible Lateral infarct , age undetermined Abnormal ECG When compared with ECG of 27-SEP-2018 06:29, (Unconfirmed) Borderline criteria for Lateral infarct are now present Unconfirmed Result
--- NOTE | 2018-09-29 07:08 | EKG Report ---
Test Performed on : 09/27/2018 06:29:28 AM Test Reason : chest pain Blood Pressure : / mmHG Vent. Rate : 093 BPM Atrial Rate : 093 BPM P-R Int : 212 ms QRS Dur : 180 ms QT Int : 422 ms P-R-T Axes : 046 -78 000 degrees QTc Int : 524 ms Sinus rhythm. with 1st degree AV block. Left axis deviation Right bundle branch block Abnormal ECG When compared with ECG of 25-SEP-2018 20:58, (Unconfirmed) SC interval has increased T wave inversion now evident in Anterior leads Confirmed by Yumiko KEY, Adam ([id number]) on 09/29/2018 8:48:17 AM
[2018-09-29 07:32] LABS: ALB/GLOB RATIO 0.8; ALBUMIN 2.7 g/dL (3.5-5.0); DIRECT BILIRUBIN 0.2 mg/dL (0.00-0.20); TOTAL BILIRUBIN 0.55 mg/dL (0.20-1.00)
[2018-09-29 07:42] LABS: ALBUMIN 3.2 g/dL (3.5-5.0); CALCIUM 7.3 mg/dL (8.8-10.2); CREATININE 9.4 mg/dL (0.7-1.2); PHOSPHORUS 8.5 mg/dL (2.7-4.5); POTASSIUM 5.5 mmol/L (3.5-5.1)
[2018-09-29] MEDS: ATIVAN IV PRN ×2 (09:05→18:04)
[2018-09-29 09:21] LABS: HEPATITIS PROFILE ACUTE SEE COMMENTS
--- NOTE | 2018-09-29 09:26 | NEPHROLOGY PROGRESS NOTE ---
DATE: 09/29/2018 SUBJECTIVE: No complaints today. He states he was having some gagging but no vomiting. No shortness of breath. OBJECTIVE: Vital Signs: Blood pressure 116/68, heart rate 69, respirations 14, afebrile. General: No acute distress. Skin: Warm and dry. Conjunctivae are pink. Neck: Neck veins are not distended. Heart: Regular. No gallops. Lungs: Equal. No crackles or wheezes. Abdomen: Soft, nontender. Bowel sounds present. Extremities: 2+ edema. No clubbing or cyanosis. IMPRESSION: Renal failure. Acute. Presumed. Urine cultures negative. Will repeat a urinalysis today. Other labs are pending. May need kidney biopsy for diagnosis and prognosis. PLAN: 3.5 hour treatment today. Two K bath. Three to four liters ultrafiltration. cc: Isidro Velzaco MD
[2018-09-29] MEDS: PROTONIX IV SCH (10:48)
--- NOTE | 2018-09-29 11:54 | PROGRESS NOTE ---
DATE: 09/29/2018 SUBJECTIVE: The patient has no focal complaints. OBJECTIVE: Blood pressure is 147/63, heart rate 78, respiratory rate 16, temperature was 97.6 degrees, 94% on 2 L. Cardiovascular: Regular rate and rhythm. Pulmonary: Bilateral breath sounds clear to auscultation. GI: Soft, nontender, nondistended. Bowel sounds were positive. Extremity Examination: No clubbing or cyanosis. Lymphatic Examination: No peripheral edema. Neurological: Examination was nonfocal. He does have nonpitting edema throughout. White count 6, hemoglobin and hematocrit 12 and 36. Potassium 5.5, BUN and creatinine 60 and 9.4. PROBLEM LIST: 1. Acute renal failure with acute tubular necrosis. He is on dialysis. Nephrology is managing. 2. Alcohol withdrawal syndrome. He is still confused, agitated. He is on Ativan as needed. I guess we are not giving him anything by mouth because he has dysphagia. 3. Dysphagia. He has been having significant choking. Gastroenterology is following but have not elected to pursue endoscopy until he is more stable. 4. Hyperkalemia, is persistent, being managed by dialysis. 5. Severe aortic stenosis, blowing murmur at least 3/6. 6. Pulmonary hypertension. Continue his current treatments. DISPOSITION: We are going to continue to monitor closely. He has an MRI ordered today. We will continue to follow. cc: Deni Humphries MD
--- NOTE | 2018-09-29 12:43 | Diag Imaging Result Doc PS360 ---
MRI BRAIN W/O CONTRAST - 09/29/2018 INDICATION: stroke COMPARISON: Head CT 09/26/2018 FINDINGS: There is severe patient motion artifact. There is no area of restricted diffusion. The ventricles are somewhat dilated. There is mild diffuse cerebral atrophy. No intracranial mass or hemorrhage. IMPRESSION: No acute abnormality. Severe patient motion artifact. Electronically signed by Blas Grewal 09/29/2018 12:40 PM
--- NOTE | 2018-09-29 18:46 | GASTROENTEROLOGY PROGRESS NOTE ---
DATE: 09/29/2018 SUBJECTIVE: Patient had just came back from MRI of the brain. He is confused. I could not get much information as far as his current dysphagia status. He is being held n.p.o. OBJECTIVE: Vital Signs: Temperature 97.6 degrees, pulse 73, respirations 17, blood pressure 127/73. General: Generally, patient is awake, but he is confused. He is in no acute distress. LABORATORY: Hematology: WBC 6.14, hemoglobin 12.1, hematocrit 36.4, MCV 96.6, platelet 178,000. Chemistry: Sodium 134, potassium 5.5, chloride 98, CO2 16, BUN 60, creatinine 9.4, glucose 85. ASSESSMENT AND PLAN: 1. Acute renal failure, on dialysis. Nephrology is following. 2. History of alcohol abuse with confusion noted. He has had MRI of the brain. 3. Dysphagia, apparently has been having choking. Will continue to follow. We would wait on pursuing any endoscopy until he is more stable. Other option is a barium swallow or modified barium swallow when he is able to cooperate. 4. We will continue to follow and further plans to be made according to his progress. I have discussed this case with Dr. Schaffer. Dictated by RALF Esquivel for Zane Schaffer MD cc: RALF Madrid MD [facility]
[2018-09-29] MEDS ORDERED: ATIVAN IV PRN (19:33)
[2018-09-29] MEDS ORDERED: PHENOBARBITAL IV ONE (19:33)
[2018-09-29 22:50] LABS: URINE SOURCE CATH
[2018-09-30 00:15] LABS: BILIRUBIN URINE NEGATIVE (NEGATIVE); BLOOD URINE LARGE (NEGATIVE); COLOR ORANGE; GLUCOSE URINE NEGATIVE (NEGATIVE); KETONE URINE NEGATIVE (NEGATIVE); LEUKOCYTES URINE LARGE (NEGATIVE); NITRITE URINE NEGATIVE (NEGATIVE); PROTEIN URINE 100 mg/dL (NEGATIVE); TURBIDITY URINE HAZY (CLEAR); UROBILINOGEN URINE NORMAL (NORMAL)
[2018-09-30 00:26] LABS: UR EPITHELIAL CELLS <10 /HPF (<10); URINE BACTERIA NEGATIVE /HPF; URINE RBC 20-40 /HPF (<10); URINE WBC TNTC /HPF (<10)
[2018-09-30 00:29] LABS: URINE CASTS NONE SEEN; URINE CRYSTALS NONE SEEN; URINE SMALL ROUND CELLS RENAL PRESENT; URINE YEAST PRESENT
[2018-09-30] MEDS: HEPARIN SUBQ SCH ×3 (05:06→22:59)
[2018-09-30] MEDS: DUONEB (A & A) INH SCH ×4 (05:06→16:14)
[2018-09-30] MEDS: APRESOLINE IV PRN (05:51)
[2018-09-30 05:58] LABS: BASO# 0.01 X1000 (0.0-0.2); BASO% 0.1 % (0.0-0.8); EOS# 0.08 X1000 (0.0-0.7); EOS% 1.2 % (0.0-10.0); HEMATOCRIT 36.1 % (42.0-52.0); HEMOGLOBIN 12.2 g/dL (14.0-18.0); IMM GRAN# 0.05 X1000 (0.0-0.04); IMM GRAN% 0.7 % (0.0-0.5); LYMPH# 1.14 X1000 (1.2-3.4); LYMPH% 16.7 % (20.5-51.1); MCH 32.3 PG (27-31); MCHC 33.8 g/dL (33-37); MCV 95.5 FL (81-99); MONO# 0.81 X1000 (0.11-0.59); MONO% 11.9 % (1.7-9.3); MPV 10.5 FL (7.4-10.4); NEUT# 4.73 X1000 (1.4-6.5); NEUT% 69.4 % (42.2-75.2); PLT 212 X1000 (130-400); RBC 3.78 XMIL (4.7-6.1); RDW 12.5 % (11.5-14.5); WBC 6.82 X1000 (4.8-10.8)
[2018-09-30] MEDS: HUMULIN R SUBQ SCH ×6 (06:23→23:00)
[2018-09-30 06:27] LABS: ALBUMIN 3.2 g/dL (3.5-5.0); CALCIUM 7.9 mg/dL (8.8-10.2); PHOSPHORUS 7.1 mg/dL (2.7-4.5); POTASSIUM 5.1 mmol/L (3.5-5.1)
[2018-09-30 06:28] LABS: CREATININE 7.3 mg/dL (0.7-1.2)
[2018-09-30] MEDS ORDERED: ATIVAN 20 MG in NS 190 ML IV SCH (06:30)
[2018-09-30] MEDS ORDERED: ATIVAN IV PRN ×3 (06:45→16:35)
--- NOTE | 2018-09-30 08:46 | NEPHROLOGY PROGRESS NOTE ---
DATE: 09/30/2018 TIME SEEN: 06. SUBJECTIVE: Mr. Severino is confused today. He is in a 4-point restraint. He denies pain, requesting help. OBJECTIVE: Vitals: His most recent vital signs, temperature 98.6, blood pressure 131/74, heart rate 91, respirations 16. He is on 3 L nasal cannula, last recorded saturation 97%. PHYSICAL EXAMINATION: General: This is a 68-year-old white male resting quietly in bed, head of the bed is slightly elevated. He remains in a 4-point restraint. No acute distress. Skin: Warm and dry. HEENT: Normocephalic, atraumatic. Conjunctiva is pale pink. He has ZEINA. Mucous membranes are dry. Neck: Supple. Trachea midline. He does have positive JVD. Cardiovascular: Regular rate and rhythm. No gallop appreciated. He has a soft systolic murmur. Lungs: Clear to auscultation bilaterally. Equal excursion on O2. Abdomen: Soft, nontender, positive bowel sounds. Fairly quiet. Extremities: 1 to 2+ lower extremity edema. No clubbing or cyanosis. Neurological: As mentioned above. INPUT AND OUTPUT: He has had 0 recorded in. He has had 2300 out with 1.5 L on dialysis. LABORATORIES: Sodium 139, potassium is 5.1, chloride 100, CO2 22, BUN 41, creatinine is 7.3, glucose of 109. The patient has an anion gap of 17. Calcium 7.9, phosphorus is 7.1, albumin is 3.2. White count 6.82, hemoglobin 12.2, hematocrit 36.1 with a platelet count of 212,000. Blood cultures show no growth after 48 hours. ASSESSMENT AND PLAN: 1. Acute renal failure, presumed acute tubular necrosis. Doctor would like to repeat a urinalysis today. Plan for dialysis in the am. No indication for intervention today. 2. Proteinuria. Other labs are currently pending, possibly indications for kidney biopsy. Unfortunately, due to his altered mental status, the patient will not be able to cooperate for this procedure at this time. 3. Electrolytes and acid-base balance. Hyperkalemia has improved. 4. Anemia. This remains fairly stable. I would like to thank you for allowing us to follow with this patient. Dictated by RALF Pope for Isidro Velazco MD Face to face encounter, data reviewed, discussed with Nitin Hernandez on 09/30/18. I agree with the above assessment and plan of care. cc: RALF Pope MD [facility]
[2018-09-30] MEDS: SODIUM CHLORIDE 0.9% INJ SCH (11:34)
[2018-09-30] MEDS: PROTONIX IV SCH (11:34)
--- NOTE | 2018-09-30 14:24 | VASCULAR LAB ---
PROCEDURE NAME: Arterial Bilateral Legs - 09/26/2018 REQUESTING PROVIDER: Marck Martin with hospitalist service. NETWORK LEAD: Bj. INDICATIONS: Possible peripheral arterial disease. SEGMENTAL PRESSURES: Right brachial 132, left 135, right proximal and left proximal thigh not measured, right distal thigh noncompressible, left 167, right popliteal 139, left 167, right dorsalis pedis 122, left 138, right posterior tibial 140, left 130, right great toe 112, left 81, right SHELLEY 1.04, left 1.02, right TBI 0.83, left 0.60. WAVEFORM ANALYSIS: Waveforms appear to be intact to the level toes bilaterally. INTERPRETATION: Perfusion noted to bilateral lower extremities. No obvious peripheral vascular disease noted on this study. If clinical suspicion holds patient may benefit from CT angiography. cc: MD Elton Sheriff CRNP
--- NOTE | 2018-09-30 14:35 | Extremity Venous Study ---
PROCEDURE NAME: Venous U/S Left Arm - 09/28/2018 REQUESTING PHYSICIAN: Dr. Kirkpatrick. MANAGER HEAVY EQUIPMENT: Bj. INDICATIONS: Swelling. EQUIPMENT: [employer] Vivid E9 ultrasound system and 9 L-D transducer. FINDINGS: Images of the left upper extremity venous systems were obtained in both sagittal and transverse planes. Doppler was used to evaluate veins for spontaneity, phasicity, respiratory excursion and digital augmentation. RESULTS: Right subclavian vein was not visualized secondary to patient interaction but no obvious superficial or deep venous thrombosis noted on this study. INTERPRETATION: Essentially normal left upper extremity venous study. cc: MD Helga Sheriff MD
[2018-09-30 14:38] LABS: ANTINEUTROPHIL CYTOPLASMIC AB SEE COMMENTS
[2018-09-30 16:51] LABS: ALLEN TEST YES; BE -6.2 mmoll (-3.0-3.0); BLOOD TYPE ARTERIAL; HCO3-(ACT) 19.8 mmoll (20.0-26.0); METHB 0.8 % (0.0-1.5); O2(CT) 16.5 mL/dL (15.0-23.0); PO2(98.6) 62 mmHg (60-100); SAMPLE BLOOD; SAO2 88.4 % (95.0-100.0); THB 13.6 g/dL (11.5-17.4)
[2018-09-30 16:53] LABS: pH(98.6) 7.05 (7.35-7.45)
[2018-09-30 16:54] LABS: MODALITY NRB; PCO2(98.6) 96 mmHg (35-45)
--- NOTE | 2018-09-30 17:04 | Diag Imaging Result Doc PS360 ---
EXAM: CHEST-PORTABLE HISTORY: respiratory failure TECHNIQUE: Portable chest single view COMPARISON: 09/29/2018 FINDINGS: Vascular distention is pronounced on the current exam. Cardiomegaly remains. No change in the right jugular line. There may be small pleural effusions. IMPRESSION: Cardiomegaly with pulmonary edema Electronically signed by David Lopez 09/30/2018 5:01 PM
[2018-09-30] MEDS ORDERED: ROMAZICON IV ONE (17:07)
[2018-09-30 17:49] LABS: HEMATOCRIT 36.5 % (42.0-52.0); HEMOGLOBIN 11.8 g/dL (14.0-18.0); MCH 31.8 PG (27-31); MCHC 32.3 g/dL (33-37); MCV 98.4 FL (81-99); MPV 10.2 FL (7.4-10.4); RBC 3.71 XMIL (4.7-6.1); RDW 12.7 % (11.5-14.5); WBC 7.55 X1000 (4.8-10.8)
[2018-09-30 18:16] LABS: ALBUMIN 3.3 g/dL (3.5-5.0); CALCIUM 7.5 mg/dL (8.8-10.2); CREATININE 9.1 mg/dL (0.7-1.2); PHOSPHORUS 9.5 mg/dL (2.7-4.5)
[2018-09-30 18:25] LABS: POTASSIUM 6.3 mmol/L (3.5-5.1)
[2018-09-30 18:30] LABS: ALLEN TEST YES; BE -4.3 mmoll (-3.0-3.0); BLOOD TYPE ARTERIAL; HCO3-(ACT) 21.5 mmoll (20.0-26.0); MODALITY BI PAP; O2(CT) 16.2 mL/dL (15.0-23.0); O2HB 95.7 % (95.0-99.0); PCO2(98.6) 48 mmHg (35-45); PO2(98.6) 107 mmHg (60-100); SAMPLE BLOOD; SAO2 98.3 % (95.0-100.0); THB 11.9 g/dL (11.5-17.4); pH(98.6) 7.28 (7.35-7.45)
[2018-09-30] MEDS ORDERED: D50W SYRINGE IV STA (18:38)
--- NOTE | 2018-09-30 18:54 | GASTROENTEROLOGY PROGRESS NOTE ---
DATE: 09/30/2018 SUBJECTIVE: The patient was asleep at the time of my visit. I did not wake him due to his problems with confusion. He is on an Ativan drip. I have spoken with the nurse. OBJECTIVE: Vital signs: Temperature 99.5 degrees, pulse 72, respirations 17, blood pressure 101/64. Generally, the patient is asleep. He is on an Ativan drip. LABORATORY DATA: Hematology: WBC 7.55, hemoglobin 11.8, hematocrit 36.5, MCV 98.4, platelets 218,000. Chemistry: Sodium 138, potassium 6.3, chloride 97, CO2 is 25, BUN 47, creatinine 9.1, glucose 151. ASSESSMENT AND PLAN: 1. Acute renal failure. Nephrology is following. Planning for dialysis tomorrow. 2. The patient had complaints of dysphagia. He is currently unable to undergo workup, which would include barium swallow versus esophagogastroduodenoscopy. We will wait until he is more stable to proceed with further workup. We will continue to follow. I have discussed this case with Dr. Schaffer. Dictated by RALF Esquivel for Zane Schaffer MD cc: RALF Madrid MD
[2018-09-30] MEDS: D50W SYRINGE IV SCH ×2 (19:10→23:00)
[2018-09-30] MEDS: ALBUTEROL NEB INH SCH ×2 (19:30→23:30)
--- NOTE | 2018-09-30 20:07 | PROGRESS NOTE ---
DATE: 09/30/2018 SUBJECTIVE: The patient was noted to be confused this morning and very agitated overnight. OBJECTIVE: Vital Signs: Temperature 98.6 degrees, blood pressure 122/65, heart rate 88, respirations 15, O2 saturation 96% on 2 L nasal cannula. General: This is a morbidly obese male lying in bed in no acute distress. Head: Normocephalic, atraumatic. Heart: S1, S2 normal. A 3/6 systolic ejection murmur. Lungs: Diminished breath sounds bilaterally. No wheezing. No rales. Abdomen: Positive bowel sounds. Soft, obese. Extremities: 1+ edema. No cyanosis. No calf tenderness. Neurologic: The patient is only oriented to self. He is able to move all 4 extremities. LABORATORY DATA: White blood cell count 6.8, hemoglobin 12, hematocrit 36, platelets 212,000. Sodium 139, potassium 5.1, chloride 100, CO2 22, BUN 41, creatinine 7.3, glucose 109, phosphorus 7.1, calcium 7.9, albumin 3.2. ASSESSMENT AND PLAN: 1. Alcohol withdrawal. The patient will be started on an Ativan drip, and we will monitor his response. 2. Dysphagia. Unchanged. The patient remains n.p.o. GI is following closely. 3. Acute kidney injury. The patient still requires dialysis support. A renal biopsy is planned once his mental status improves. Further management as per the territory account representative. 4. Severe aortic stenosis. Aware. Cardiology is following. 5. Hepatic steatosis versus cirrhosis. Aware. 6. Diabetes mellitus type 2. Continue with sliding scale insulin. 7. Morbid obesity. Aware. 8. Suspected obstructive sleep apnea. The patient will likely require an outpatient sleep study. 9. Pulmonary hypertension. Aware. 10. Alcohol dependence. Aware. 11. Gastrointestinal prophylaxis. Continue on IV Protonix. 12. Deep vein thrombosis prophylaxis. Continue on heparin. cc: Helga Kirkpatrick MD [facility]
[2018-10-01] MEDS: DUONEB (A & A) INH SCH ×3 (03:14→21:27)
[2018-10-01 05:20] LABS: ALLEN TEST YES; BLOOD TYPE ARTERIAL; HCO3-(ACT) 24.1 mmoll (20.0-26.0); METHB 0.9 % (0.0-1.5); O2(CT) 15.6 mL/dL (15.0-23.0); O2HB 95.4 % (95.0-99.0); PCO2(98.6) 48 mmHg (35-45); PO2(98.6) 97 mmHg (60-100); SAMPLE BLOOD; SAO2 97.4 % (95.0-100.0); THB 11.5 g/dL (11.5-17.4); pH(98.6) 7.33 (7.35-7.45)
[2018-10-01 05:21] LABS: MODALITY BI PAP
[2018-10-01] MEDS: HEPARIN SUBQ SCH ×3 (06:06→21:18)
[2018-10-01] MEDS: HUMULIN R SUBQ SCH ×4 (06:06→21:18)
[2018-10-01 06:12] LABS: HEMATOCRIT 34.3 % (42.0-52.0); HEMOGLOBIN 11.6 g/dL (14.0-18.0); MCH 33.1 PG (27-31); MCHC 33.8 g/dL (33-37); MPV 10.4 FL (7.4-10.4); RBC 3.5 XMIL (4.7-6.1); RDW 12.5 % (11.5-14.5); WBC 6.47 X1000 (4.8-10.8)
[2018-10-01] MEDS ORDERED: HEPARIN IV PRN (06:12)
[2018-10-01] MEDS ORDERED: TIGHT: 0.2 ML/HR FOR DIALYSIS MISC PRN (06:12)
[2018-10-01] MEDS ORDERED: NS 2,000 ML MISC PRN (06:12)
[2018-10-01 06:34] LABS: ALBUMIN 2.9 g/dL (3.5-5.0); CALCIUM 7.8 mg/dL (8.8-10.2); CREATININE 9.4 mg/dL (0.7-1.2); PHOSPHORUS 7.1 mg/dL (2.7-4.5)
--- NOTE | 2018-10-01 07:21 | Diag Imaging Result Doc PS360 ---
CHEST-PORTABLE - 10/01/2018 INDICATION: dyspnea COMPARISON: 09/30/2018 FINDINGS: Stable right-sided dialysis catheter. There is improvement in the cardiomegaly. There is improvement in the slight ill-defined basilar infiltrates bilaterally. There are probably trace pleural effusions. IMPRESSION: Improved cardiomegaly and ill-defined bibasilar infiltrates suggesting pulmonary edema. Electronically signed by Blas Grewal 10/01/2018 7:19 AM
--- NOTE | 2018-10-01 08:54 | NEPHROLOGY PROGRESS NOTE ---
DATE: 10/01/2018 DATE AND TIME OF EXAM: 10/01/2018 at 0630 hours. SUBJECTIVE: Mr. Severino is awake. He is on BiPAP. He remains in 4-point restraint. OBJECTIVE: His most recent vital signs: Temperature 96.2 degrees, blood pressure 131/84, heart rate 62, respirations are 16. He is on 40% BiPAP. Last recorded saturation is 100%. He has had 305 in; 250 out to Arevalo. General: On physical examination, this is a 68-year-old white male. He is resting quietly in bed. He remains in a 4-point restraint. He continues with BiPAP on secondary to desaturation during the night. Skin: Warm and dry. HEENT: Normocephalic, atraumatic. Conjunctivae pale pink. He has EZINA. Mucous membranes are dry. BiPAP mask remains intact. Neck: Supple. Trachea midline. Unable to determine JVD due to his BiPAP straps. Cardiovascular: Regular rate and rhythm. No gallop appreciated. He does have a soft systolic murmur. Lungs: Clear to auscultation anteriorly, equal excursion. Remains on O2 support. Abdomen: Soft, nontender. Positive bowel sounds. Genitourinary: Not inspected. Arevalo catheter is in place with minimal urine out requiring dialysis. Extremities: Continues with 2+ to 3+ lower extremity edema. Neurological: As above. LABS: Sodium is 138, potassium 5, chloride is 99, CO2 24. BUN 53, creatinine 9.4, glucose is 160. The patient has an anion gap of 15, his calcium is 7.8, phosphorus 7.1, albumin 2.9. White count 6.47, hemoglobin 11.6, hematocrit 34.3, with a platelet count of 229. ASSESSMENT AND PLAN: 1. Acute renal failure, presumably acute tubular necrosis. We will plan for his dialysis treatment today. He is to be placed on a 2 potassium bath. He is to dialyze for 3-1/2 hours. We will attempt to pull 2 to 3 liters of ultrafiltration as tolerated. 2. Proteinuria. This continues to be followed. 3. Electrolytes and acid-base balance. This is acceptable with correction on dialysis. 4. Anemia. This is stable. I would like to thank you for allowing us to follow with this patient. Dictated by RALF Pope for Isidro Velazco MD Face to face encounter, data reviewed, discussed with Nitin Hernandez on 10/01/18. I agree with the above assessment and plan of care. cc: RALF Pope MD [facility]
[2018-10-01] MEDS: ATIVAN IV PRN ×4 (11:48→21:18)
--- NOTE | 2018-10-01 16:56 | PROGRESS NOTE ---
DATE: 10/01/2018 SUBJECTIVE: Yesterday afternoon the patient did not tolerate being on the ativan drip. He developed a severe respiratory acidosis and required BiPAP support. Today he is awake and restless. OBJECTIVE: Vital Signs: Temperature 98.6 degrees, blood pressure 141/83, heart rate 77, respirations 16, O2 saturation is 97% on 15 L. General: This is a morbidly obese male lying in bed, in no acute distress. Head: Normocephalic, atraumatic. Heart: S1, S2 normal. Regular rate and rhythm with 3/6 systolic ejection murmur. Lungs: Diminished breath sounds. No crackles. No rales. Abdomen: Positive bowel sounds. Soft, obese. Extremities: There is 2+ edema. Neurologic: The patient is very restless and confused with inappropriate outbursts. LABS: White blood cell count 6.4, hemoglobin 11, hematocrit 34, platelets 229,000. ABG, pH of 7.33, pCO2 48, PO2 97, bicarb 24. Sodium 138, potassium 5, chloride 99, CO2 24, BUN 53, creatinine 9.4, glucose 160, phosphorus 7.1, calcium 7.8. Chest x-ray shows improved cardiomegaly and pulmonary edema, as well as trace pleural effusions. ASSESSMENT AND PLAN: 1. Acute hypercapnic and hypoxemic respiratory failure. The patient responded well to BiPAP therapy. We will continue to use BiPAP at night. 2. Acute pulmonary edema with volume overload. This will be addressed during dialysis today. 3. Alcohol withdrawal. We will continue with a low dose of Ativan as needed. 4. Severe aortic stenosis. Aware. Cardiology is following. 5. Hyperkalemia. Improved. 6. Acute kidney injury. The patient continues to require dialysis. Further management as per the emt p. 7. Diabetes mellitus type 2. Continue on sliding scale insulin. 8. Dysphagia. The patient remains n.p.o. at this time. He will be receiving IDPN during dialysis for nutritional support. 9. Pulmonary hypertension. Aware. 10. Hepatic steatosis versus cirrhosis. Aware. 11. Alcohol dependence. Aware. 12. Anemia. Stable. 13. Gastrointestinal prophylaxis. Continue on IV Protonix. 14. Deep vein thrombosis prophylaxis. Continue on heparin. 15. Disposition. The patient is a full code. I updated the patient's daughter, Tierra, this morning about the patient's clinical status. cc: Helga Kirkpatrick MD [facility]
[2018-10-01] MEDS: PROTONIX IV SCH (17:44)
--- NOTE | 2018-10-01 18:20 | GASTROENTEROLOGY PROGRESS NOTE ---
DATE: 10/01/2018 SUBJECTIVE: Patient was asleep, in no acute distress. OBJECTIVE: Vital Signs: Temperature 97.9, pulse 81, respirations 18, blood pressure 154/77. General: Patient was asleep. In no acute distress. LABORATORY: Hematology: WBC 6.47, hemoglobin 11.6, hematocrit 34.3, MCV 98.0, platelet 229,000. Chemistry: Sodium 138, potassium 5.0, chloride 99, CO2 24, BUN 53, creatinine 9.4, glucose 160. ASSESSMENT AND PLAN: 1. Alcohol withdrawal. Patient has been on Ativan. 2. Acute kidney injury. I believe they have plans to start dialysis. 3. Dysphagia. The patient has been n.p.o. Continue PPI. 4. Other medical problems including: Aortic stenosis, hepatic steatosis/cirrhosis, diabetes, hypertension, obstructive sleep apnea. PLAN: Continue PPI. Will continue to follow during this hospital course. Once he is able to cooperate with further testing, may proceed with modified barium swallow versus EGD procedure when he is stable enough to be sedated. Will continue to follow. Further plans to be made according to his progress. I have discussed this case with Dr. Schaffer. Dictated by RALF Esquivel for Zane Schaffer MD cc: RALF Madrid MD [facility]
[2018-10-01] MEDS ORDERED: GEODON IM ONE (18:28)
[2018-10-01] MEDS ORDERED: HALDOL IM PRN (18:30)
[2018-10-01] MEDS ORDERED: GEODON ONE (18:36)
[2018-10-01] MEDS: STERILE WATER INJ. INJ ONE (18:40)
--- NOTE | 2018-10-01 18:58 | CONSULTATION ---
DATE OF CONSULTATION: 10/01/2018 REQUESTING PROVIDER: Dr. Helga Kirkpatrick. REASON FOR CONSULTATION: Acute hypercapnic respiratory failure. HISTORY OF PRESENT ILLNESS: This is a 68-year-old male with a medical history of morbid obesity, diabetes, diabetic neuropathy, hypertension, hyperlipidemia and alcoholism. He presented to the ER on 09/25/2018 with weakness and falls x2 in the past 3 days. Initial workup in the ER revealed acute kidney injury, transaminitis, rhabdomyolysis and poorly controlled diabetes. He has been admitted for further evaluation and management. During this hospital stay he was found to have dysphagia, severe aortic stenosis and pulmonary hypertension. He also developed alcohol withdrawal syndrome and altered mental status. At the time of my examination, the patient is on dialysis. He is confused and agitated. He keeps stating and even shouting sometimes "I am a simple man. I am damn thirsty and need water. I am going to pull these tubes away and get out of here." I do explain to him that he is n.p.o. at this time; He choked with food 3 days ago; and I will ask the nurse to give him oral care later. He is apparently drowsy, too. He is falling asleep before I leave. There is no family at the bedside. All other information is obtained from the e-chart. PAST MEDICAL HISTORY: 1. Morbid obesity. Current BMI 41.1. 2. Diabetes mellitus type 2. 3. Diabetic neuropathy. 4. Hypertension. 5. Hyperlipidemia. 6. Alcoholism. 7. Bilateral knee arthroscopy. SOCIAL HISTORY: Per H and P, the patient has around 3 liquor drinks every night. He has no history of tobacco or illicit drug use. FAMILY HISTORY: Positive for diabetes. ALLERGIES: Amoxicillin. REVIEW OF SYSTEMS: Unable to be obtained. PHYSICAL EXAMINATION: Vital signs: Temperature 96.2, blood pressure 131/84, pulse 76, respiratory rate 14, oxygen saturation 99% on BiPAP with FIO2 of 40% and pressure 24/10. General: The patient is lying in bed with hemodialysis on. He remains in four-point restraints. He is confused, agitated and drowsy. HEENT: Atraumatic. Trachea midline. Mucosa is pink and slightly dry. Respiratory even and unlabored. Symmetrical excursion. Auscultation reveals diminished breathing sounds bilaterally. Clear otherwise. Cardiovascular: Regular rate and rhythm with normal noted. Gastrointestinal: Bowel sounds normoactive in all 4 quadrants. Nontender. Semifirm, distended. Extremities: Bilateral lower extremity and bilateral upper extremity pitting edema 1+. No clubbing. No cyanosis. No tremor noted. Neurologic: Confused, agitated and drowsy, not following commands. LABORATORY DATA: White blood cell 6.47, hemoglobin 11.6, hematocrit 34.3, platelets 229,000. Sodium 138, potassium 5.0, chloride 99, carbon dioxide 24, BUN 53, creatinine 9.4, glucose 160. ABG pH 7.33, pCO2 is 48, pO2 is 97, HCO3 is 24.1, base excess -1.0 and oxyhemoglobin 95.4. DIAGNOSTIC DATA: Chest x-ray revealed improved cardiomegaly and ill-defined bibasilar infiltrates suggesting pulmonary edema. ASSESSMENT: This is a 68-year-old male with medical history of morbid obesity, diabetes, diabetic neuropathy, hypertension, hyperlipidemia and alcoholism. He has been admitted since 09/25/2018 with acute kidney injury, transaminitis, rhabdomyolysis, poorly controlled diabetes, alcohol withdrawal syndrome and altered mental status. 1. Acute hypoxemic respiratory failure with carbon dioxide retention, pCO2 of 48 this morning. 2. Metabolic encephalopathy. 3. Alcohol withdrawal syndrome. 4. Acute kidney injury, on dialysis. 5. Morbid obesity with suspected obstructive sleep apnea. 6. Severe aortic stenosis. 7. Pulmonary hypertension. 8. Dysphagia. PLAN: 1. Continue supplemental oxygen as needed. 2. Continue BiPAP as indicated. 3. Continue bronchodilators. 4. Follow up with ABG and chest x-ray. 5. Recommend outpatient sleep evaluation at the time of discharge. 6. Dr. Velazco, Dr. Wilson and Dr. Schaffer are on board. 7. Continue GI and DVT prophylaxis. 8. Further recommendations pending hospital course. Thank you for the courtesy of this consult. Dictated by RALF Saleh for Nae Hamm MD cc: RALF Saleh MD [facility]
[2018-10-01 19:19] LABS: URINE SOURCE CATH
[2018-10-01 19:29] LABS: BILIRUBIN URINE NEGATIVE (NEGATIVE); BLOOD URINE MODERATE (NEGATIVE); COLOR YELLOW; GLUCOSE URINE NEGATIVE (NEGATIVE); KETONE URINE TRACE mg/dL (NEGATIVE); LEUKOCYTES URINE LARGE (NEGATIVE); NITRITE URINE NEGATIVE (NEGATIVE); PROTEIN URINE 100 mg/dL (NEGATIVE); TURBIDITY URINE HAZY (CLEAR); UROBILINOGEN URINE NORMAL (NORMAL)
[2018-10-01 19:37] LABS: UR EPITHELIAL CELLS <10 /HPF (<10); URINE BACTERIA NEGATIVE /HPF; URINE RBC 20-40 /HPF (<10); URINE WBC TNTC /HPF (<10)
[2018-10-01 20:31] LABS: URINE CASTS NONE SEEN; URINE CRYSTALS NONE SEEN; URINE SMALL ROUND CELLS NONE SEEN; URINE YEAST PRESENT
[2018-10-02] MEDS: DUONEB (A & A) INH SCH ×4 (03:43→22:16)
[2018-10-02 05:07] LABS: HEMATOCRIT 36.5 % (42.0-52.0); HEMOGLOBIN 12.2 g/dL (14.0-18.0); MCH 32.6 PG (27-31); MCHC 33.4 g/dL (33-37); MCV 97.6 FL (81-99); RBC 3.74 XMIL (4.7-6.1); RDW 12.6 % (11.5-14.5); WBC 6.04 X1000 (4.8-10.8)
[2018-10-02 05:13] LABS: ALLEN TEST YES; BE 0.6 mmoll (-3.0-3.0); BLOOD TYPE ARTERIAL; HCO3-(ACT) 25.4 mmoll (20.0-26.0); METHB 0.7 % (0.0-1.5); O2(CT) 16.6 mL/dL (15.0-23.0); O2HB 96.3 % (95.0-99.0); PCO2(98.6) 44 mmHg (35-45); PO2(98.6) 113 mmHg (60-100); SAMPLE BLOOD; SAO2 98.4 % (95.0-100.0); THB 12.1 g/dL (11.5-17.4); pH(98.6) 7.38 (7.35-7.45)
[2018-10-02 05:15] LABS: MODALITY BI PAP
[2018-10-02 05:44] LABS: PHOSPHORUS 6.4 mg/dL (2.7-4.5); POTASSIUM 4.5 mmol/L (3.5-5.1)
[2018-10-02 05:47] LABS: CREATININE 7.1 mg/dL (0.7-1.2)
[2018-10-02] MEDS: HUMULIN R SUBQ SCH ×3 (06:03→20:46)
[2018-10-02] MEDS: HEPARIN SUBQ SCH ×3 (06:32→23:48)
[2018-10-02] MEDS: ATIVAN IV PRN ×5 (07:19→23:48)
--- NOTE | 2018-10-02 07:25 | Diag Imaging Result Doc PS360 ---
EXAM: CHEST-1 VIEW 10/02/2018 HISTORY: SOB TECHNIQUE: AP portable at 0532 COMMENT: There is a large bore right internal jugular central venous catheter with its tip in the superior vena cava just above the right atrium. There is cardiomegaly. The lung bases are clearer than on 10/01/2018 despite the relatively poorer inspiration. IMPRESSION: Improved pulmonary edema. Electronically signed by Kirit Barber 10/02/2018 7:22 AM
[2018-10-02] MEDS ORDERED: GEODON IM PRN (08:17)
--- NOTE | 2018-10-02 08:52 | NEPHROLOGY PROGRESS NOTE ---
DATE: 10/02/2018 DATE AND TIME OF EXAM: 10/02/2018 at 0605 hours. SUBJECTIVE: Mr. Severino is resting quietly in bed. He remains on BiPAP 40%. He has been sedated during the night with Ativan, hard to arouse, though opens eyes to verbal stimuli. OBJECTIVE: His most recent vital signs: Temperature 98.2, blood pressure 127/74, heart rate is 63, respirations are 14. He has had zero recorded in; he has had 3255 out. The patient remains on 40% BiPAP. His last recorded saturation is 100%. General: This is a 68-year-old white male. He is resting quietly in bed. He appears in no acute distress. Skin: Warm and dry. HEENT: Normocephalic, atraumatic. Conjunctiva is pale pink. He has ZEINA. Mucous membranes are dry. BiPAP mask remains intact. Neck: Supple. Trachea midline. Unable to determine JVD due to BiPAP straps in place. Cardiovascular: Regular rate and rhythm. No gallop appreciated. Soft systolic murmur is present. Lungs: Clear to auscultation bilaterally. Equal excursion. Continues on O2 support. Abdomen: Large, round, soft, nontender. Positive bowel sounds. Genitourinary: Not inspected. Arevalo catheter is in place with minimal urine. Dialysis assist. Extremities: Continues with trace to 1+ lower extremity edema. No clubbing or cyanosis. Neurological: As above. LABS: Sodium 142, potassium 4.5, chloride 100, CO2 23. BUN 37, creatinine 7.1, glucose is 133. His anion gap is 19. Calcium is 8, phosphorus 6.4, albumin of 3. White count 6.04, hemoglobin 12.2, hematocrit 36.5 with a platelet count of 249. ABGs reveal pH 7.38, CO2 44, PO2 113, bicarbonate 25.4. The patient has a lactate of 1.1 on 40% BiPAP. Urinalysis has been repeated indicating positive glucose, ketones, blood, leukocytes, no casts present. Urine culture is pending. ASSESSMENT AND PLAN: 1. Acute renal failure, presumably acute tubular necrosis. Patient had dialysis yesterday. We will allow him to rest today, and plan for dialysis in the morning. 2. Electrolytes and acid-base balance; these are fairly stable. 3. Anemia; this is close to target. 4. Proteinuria. This remains on his urinalysis. Urine culture is pending. I would like to thank you for allowing us to follow with this patient. Dictated by RALF Pope for Isidro Velazco MD Face to face encounter, data reviewed, discussed with Nitin Hernandez on 10/03/18. I agree with the above assessment and plan of care. cc: RALF Pope MD [facility]
--- NOTE | 2018-10-02 13:08 | CONSULTATION ---
DATE OF CONSULTATION: 10/02/2018 REASON FOR CONSULTATION: Altered mental status. HISTORY OF PRESENT ILLNESS: 68-year-old male with a history of poorly controlled type 2 diabetes, hypertension, hyperlipidemia, who was admitted on 09/26/18 with recent falls,confusion. There is mention that he may drink excessive amounts of alcohol. On admission, he was found to have acute kidney failure with a BUN of 64 and a creatinine of 8.2. He also had transaminitis. There is no family currently available so history is from chart review. The nurse tells me he apparently was having some falls and that it was not the 1st time this has happened and he has had neighbors have to help him up. There was some difficulty getting him up, at some point EMS was called. There was no report of loss of consciousness. No reports of head injury. At one point, he may have just fallen when his shower handicap chair collapsed. The patient somewhat recently relocated here from [place]. He has not had good follow up for his medical conditions. The patient was hospitalized, started on hemodialysis on the following day which was new for him. Workup has been underway. Two days after admission he began to have mental status changes and was transferred to the ICU for treatment of DTs. He has been noted to have some dysphagia this hospitalization, and that is being worked up. He was started on lorazepam drip for DTs but that was transitioned over to p.r.n. lorazepam IV pushes due to some respiratory intolerance. Nurse tells me today that overnight he required Geodon and possibly Haldol and that has helped significantly with his agitation. He had been very agitated, yelling out, pulling at lines, so he has required 4 point soft restraints. He has been inappropriate very frequently, making sexual comments to others. Head CT on arrival did not show acute findings. MRI noncontrast done on the also did not show acute findings. There was severe patient motion artifact. I did notice at least mild diffuse cerebral atrophy with some ventricular dilatation. PAST MEDICAL HISTORY: Includes poorly controlled type 2 diabetes, hypertension, hyperlipidemia, bilateral knee arthroscopic. SOCIAL HISTORY: He recently moved here from [place]. I believe he lives in a nursing facility. He was moved here to be closer to his children. He does drink alcohol and that maybe in excess. No illicits or tobacco reported. FAMILY HISTORY: Positive for diabetes. ALLERGIES: Listed to amoxicillin. HOME MEDICATIONS: Reviewed in the chart, include Neurontin 300 mg at bedtime, lisinopril, meclizine, metformin, atorvastatin 10 mg daily and glipizide. Current medications reviewed in the chart and include 1 mg IV lorazepam q.2 hours p.r.n., with last dose today at 7:20 a.m., Geodon 10 mg IM q.6 p.r.n. He did receive that overnight. REVIEW OF SYSTEMS: A 12-point of systems was unable to be conducted due to the patient's mental status and current BiPAP status. PHYSICAL EXAMINATION: Vital Signs: Afebrile, blood pressure 111/67 on admission, has been variable this admission as low as 80s systolic and as high as 160s systolic, current 127/92, pulse 60's to 80s. Respirations 16. He is on BiPAP General/neurologic: Mr. Severino is supine in bed. He is on BiPAP at this time. He is resting with eyes closed. He opens his eyes and regards to voice. He is able to state his name in the year. He says he is at the lab but agrees when I tell him he is at the hospital. Later, he begins to say that he is in the wrong place, he is supposed to be at home and seems a little bit confused. He was able to guess the month of September when I told him it was the 4th month of the year. He followed simple commands. Left right and digit distinction preserved. His naming was intact. No language disturbance on brief bedside testing. He made 1 inappropriate sexually oriented comment during my time at the bedside. He was calm and not particularly agitated during my time at the bedside. Pupils are equal, round, reactive to bright light. Gaze was conjugate and forward. He had full lateral eye movements. Face appeared to be symmetric with equal activation. He can hear. He blinks to threat without obvious deficit. Tone appears equal in the limbs. Strength testing appear to be preserved in the arms and legs, both distally and proximally and symmetric. He responded to light touch and pinprick in a symmetric fashion in the arms and legs. He was not attentive enough for detailed sensory testing. Reflexes were absent at the ankles and patellae bilaterally. No clonus. Plantar response was mute. Reflexes 1+ at the biceps bilaterally. He has some edema noted to the extremities. No meningismus. LABORATORY DATA: Normal white count. PCO2 got as high as 96 on 09/30/2018, current 44. Sodium current normal has been a little low but currently normal. BUN 37, has been as high as 77 five days ago. Creatinine currently 7.1 was as high as 9.7 three days ago, and yesterday 9.4. Blood sugars 80s to mid 200s. Calcium 8.0. Phosphorus 6.4, AST 58 on admission, currently normal. ALT 157 on admission, current 48. Ammonia was normal. Urinalysis noted. I do not see a toxicology. His A1c was 8.9. IMAGING: Head CT noncontrast, personally reviewed. No acute findings. There is at least mild generalized cerebral atrophy with some dilatation of the lateral ventricles. MRI of the brain noncontrast personally reviewed. No acute findings but there is severe patient motion artifact. ASSESSMENT AND PLAN: Global encephalopathy. Multifactorial. Uncertain baseline. Nonfocal exam and negative imaging are reassuring. I would continue treating his acute kidney injury and other metabolic derangements as you are doing. Continue frequent reorienting and using as- needed medications when appropriate. He was calm during my time at the bedside though given his reported alcohol consumption history, I would agree with monitoring for and managing DT as indicated. Thank you for the consultation. cc: Bebe De Leon MD [facility]
--- NOTE | 2018-10-02 15:25 | PROGRESS NOTE ---
DATE: 10/02/2018 SUBJECTIVE: The patient is awake, but remains confused this morning. He is currently in 4-point restraints. OBJECTIVE: Vital Signs: Temperature 98.3, blood pressure 161/83, heart rate 86, respirations 19. O2 sats 97% on BiPAP.. General: This is a morbidly obese male resting in bed in no acute distress. Heart: S1, S2 normal. Regular rate and rhythm. Lungs: Equal air entry bilaterally. No crackles. No rales. Abdomen: Positive bowel sounds. Soft, nontender, nondistended. Extremities: The patient has swelling, 2+ edema in the left arm. No edema noted in the lower extremities. Neurologic: The patient is awake, but confused. He is able to move all 4 extremities. LABS: White blood cell count 6, hemoglobin 12, hematocrit 36, platelets 249,000. Sodium 142, potassium 4.5, chloride 100, CO2 23, BUN 37, creatinine 7.1, glucose 133, phosphorus 6.4. Chest x-ray shows improved pulmonary edema. ASSESSMENT AND PLAN: 1. Acute hypercapnic and hypoxemic respiratory failure. Continue with BiPAP at night and the ventimask during the day. 2. Acute pulmonary edema with volume overload. Improved. 3. Alcohol withdrawal. Continue with p.r.n. sedatives. 4. Severe aortic stenosis. Aware. 5. Acute kidney injury. Management as per the chemical maker. 6. Dysphagia. GI is following. 7. Diabetes mellitus type 2. Continue on sliding scale insulin. 8. Pulmonary hypertension. Aware. 9. Hepatic steatosis versus cirrhosis. Aware. 10. Anemia. Stable. 11. Alcohol dependence. Aware. 12. GI prophylaxis. Continue on IV Protonix. 13. DVT prophylaxis. Continue on heparin. cc: MD JARRELL Day
[2018-10-02] MEDS ORDERED: STERILE WATER INJ. ONE (15:33)
[2018-10-02] MEDS: STERILE WATER INJ. INJ ONE (15:38)
--- NOTE | 2018-10-02 15:46 | EKG Report ---
Test Performed on : 09/30/2018 4:42:53 PM Test Reason : abnormal ekg Blood Pressure : / mmHG Vent. Rate : 074 BPM Atrial Rate : 074 BPM P-R Int : 192 ms QRS Dur : 170 ms QT Int : 462 ms P-R-T Axes : 104 -75 -08 degrees QTc Int : 512 ms Normal sinus rhythm. Left axis deviation Right bundle branch block Septal infarct (cited on or before 30-SEP-2018) Abnormal ECG When compared with ECG of 30-SEP-2018 16:42, (Unconfirmed) No significant change was found Confirmed by Yumiko KEY, Adam ([id number]) on 10/03/2018 11:34:09 AM
[2018-10-02] MEDS: PROTONIX IV SCH (17:56)
[2018-10-03] MEDS: DUONEB (A & A) INH SCH ×4 (03:53→21:27)
[2018-10-03 05:34] LABS: HEMATOCRIT 34.7 % (42.0-52.0); HEMOGLOBIN 11.7 g/dL (14.0-18.0); MCH 32.9 PG (27-31); MCHC 33.7 g/dL (33-37); MCV 97.5 FL (81-99); MPV 9.8 FL (7.4-10.4); RBC 3.56 XMIL (4.7-6.1); RDW 12.3 % (11.5-14.5); WBC 6.25 X1000 (4.8-10.8)
[2018-10-03 06:13] LABS: ALBUMIN 3.1 g/dL (3.5-5.0); CALCIUM 9.1 mg/dL (8.8-10.2); PHOSPHORUS 7.8 mg/dL (2.7-4.5); POTASSIUM 4.6 mmol/L (3.5-5.1)
[2018-10-03] MEDS: HEPARIN SUBQ SCH ×3 (06:51→21:32)
[2018-10-03] MEDS: HUMULIN R SUBQ SCH ×5 (06:52→20:26)
[2018-10-03] MEDS ORDERED: NS 2,000 ML MISC PRN (08:20)
[2018-10-03] MEDS ORDERED: HEPARIN IV PRN (08:20)
--- NOTE | 2018-10-03 09:42 | PROGRESS NOTE ---
DATE: 10/03/2018 SUBJECTIVE: Mr. Sveerino presented with global encephalopathy and likely multiple metabolic contributors. BUN was 70s, down to 30s-50s range now. Liver enzymes are mildly elevated. He had moderately elevated blood sugar. Hypocalcemia 7.3 has been corrected, 9.1 now. Daughter at the bedside reports baseline forgetfulness noted at least in recent months, possibly longer. Mr. Severino reports he uses ethanol, but I am not certain whether that is moderate or to excess. OBJECTIVE: This morning, he is awake, alert, attentive, appropriate, cheerful, chuckling, answering questions correctly. He admitted he was uncertain about the day of the week, but was able to read the board and provide correct answers regarding orientation. He named the president and discussed some recent news. Speech is not dysarthric. Language function is intact on brief bedside testing. I did not test his cognitive function thoroughly. IMPRESSION: Global encephalopathy, multiple factors, metabolic problems improved. Encephalopathy seems clinically significantly improved. In light of the baseline cognitive impairment, he is predisposed to having more protracted and more prominent encephalopathy features with any toxic or metabolic disturbance. I encouraged him to be careful with ethanol, to take his medicines as directed and to keep followup with his primary clinic. Depending on his clinical course, we might consider more careful evaluation of cognitive function when he is at baseline medically and cholinesterase inhibitor trial might be warranted. Thanks for asking Neurology to see Mr. Severino. cc: MD JARRELL Workman III
--- NOTE | 2018-10-03 16:52 | GASTROENTEROLOGY PROGRESS NOTE ---
DATE: 10/03/2018 SUBJECTIVE: Patient is now awake and alert and in no acute distress. At the time of my evaluation, he was tolerating a liquid diet without difficulty. Per nurse report, he did pass his swallow evaluation so I believe his diet has been advanced. OBJECTIVE: Vital Signs: Temperature 97.3 degrees, pulse 79, respirations 16, blood pressure 154/85. General: Patient is awake and alert in no acute distress. He is so far tolerating liquids without difficulty and passed a swallow study. LABORATORY: Hematology: WBC 6.25, hemoglobin 11.7, hematocrit 34.7, MCV 97.5, platelets 261,000. Chemistry: Sodium 140, potassium 4.6, chloride 100, CO2 23, BUN 57, creatinine 8.0, glucose 152. ASSESSMENT AND PLAN: 1. Respiratory failure. Patient's respiratory status has improved. Continue management. 2. Alcohol withdrawal. Patient is awake and alert today. 3. Dysphagia, seems to have improved. He passed a swallow evaluation. Diet has been advanced. We will follow on his response, continue PPI. GI will be available as needed. Further plans to be made according to his progress. I have discussed this case with Dr. Schaffer. Dictated by RALF Esquivel for Zane Schaffer MD cc: RALF Madrid MD
--- NOTE | 2018-10-03 16:58 | PULMONOLOGY PROGRESS NOTE ---
DATE: 10/03/2018 SUBJECTIVE: The patient is awake, alert, and disoriented. He continues to demonstrate inappropriate behaviors to the nursing staff. OBJECTIVE: Vital Signs: Blood pressure 154/85, heart rate 79, respiratory rate 16, unlabored, oxygen saturation 98% on 4 L per nasal cannula. HEENT: Pupils are equal and reactive. Oropharynx is clear. Neck: Supple. Chest: Reveals prolonged expiratory phase with decreased breath sounds in the bases. Cardiac exam: S1, S2. Abdomen: Obese and soft. Extremities: Reveal 1+ peripheral edema. LABORATORIES: No new arterial blood gas. Electrolytes: Sodium 140, potassium 4.6, chloride 100, bicarbonate 23, BUN 57, creatinine 8.0. White blood count 6.25, hemoglobin 11.7, platelet count 261,000. IMPRESSION: A 68-year-old with: 1. Acute hypoxemic respiratory failure. 2. Acute hypercapnic respiratory failure. 3. Morbid obesity. 4. Encephalopathy. 5. Alcohol use, abuse suspected. 6. Diabetes mellitus with peripheral neuropathy. 7. Acute renal failure. 8. Pulmonary hypertension. 9. Severe aortic stenosis. RECOMMENDATIONS: 1. Continue to wean oxygen as tolerated. 2. Continue BiPAP at bedtime and p.r.n. 3. Continue encephalopathy management per Neurology service. 4. Consider valve replacement as indicated by Cardiology pending improvement in current clinical status. cc: Brandon Hernández MD
[2018-10-03] MEDS ORDERED: CALMOSEPTINE OINTMENT TOP ONE (17:17)
[2018-10-03] MEDS: PROTONIX IV SCH (18:37)
[2018-10-03] MEDS: DIFLUCAN 100 MG/NS 100 MG/50 ML IVPB IV SCH (18:37)
--- NOTE | 2018-10-03 19:17 | PROGRESS NOTE ---
DATE: 10/03/2018 SUBJECTIVE: The patient is resting comfortably in bed, he is more awake. He still occasionally makes inappropriate comments to women. OBJECTIVE: Vital Signs: Temperature 98.6 degrees, blood pressure 158/85, heart rate 81, respirations 17, O2 saturation 97% on a Ventimask. General: This is a morbidly obese male lying in bed in no acute distress. Heart: S1, S2 normal. Regular rate and rhythm. Lungs: Equal air entry bilaterally. No crackles, no rales. Abdomen: Positive bowel sounds. Soft, obese, nontender, nondistended. Extremities: No edema, no cyanosis. No calf tenderness. Neuro: The patient is alert and oriented x3. LABS: White blood cell count 6.2, hemoglobin 11, hematocrit 34, platelets 261,000, sodium 140, potassium 4.6, chloride 100, CO2 23, BUN 57, creatinine 8, glucose 152, phosphorus 7.8. ASSESSMENT AND PLAN: 1. Acute hypercapnic and hypoxemic respiratory failure. Continue with BiPAP at night. 2. Acute pulmonary edema with volume overload. This will be addressed during dialysis today. 3. Alcohol withdrawal. Slowly improving. 4. Severe aortic stenosis. Aware. 5. Acute kidney injury. The patient will be undergoing dialysis today. 6. Dysphagia. Improved. The patient passed his swallow evaluation and has been started on a diet. 7. Diabetes mellitus type 2. Continue on sliding scale insulin. 8. Pulmonary hypertension. Aware. 9. Hepatic steatosis versus cirrhosis. Aware. Gastroenterology is following. 10. Anemia. Stable. 11. Gastrointestinal prophylaxis. Continue on IV Protonix. 12. Deep vein thrombosis prophylaxis. Continue on heparin. cc: Helga Kirkpatrick MD [facility]
--- NOTE | 2018-10-03 19:23 | NEPHROLOGY PROGRESS NOTE ---
DATE: 10/03/2018 SUBJECTIVE: He is more alert today. He is eating this morning. No shortness of breath, nausea, vomiting. OBJECTIVE: Vital Signs: Blood pressure 158/85, heart rate 81, respirations 22, afebrile. Intake. None recorded. Output 750 mL. General: No acute distress. Skin: Warm and dry. Neck: Neck veins are not appreciated. Heart: Regular. No gallops. Lungs: Equal. No crackles or wheezes. Abdomen: Soft, nontender. Bowel sounds present. Extremities: 2+ edema. No clubbing or cyanosis. IMPRESSION: Acute kidney injury. No recovery. Dialysis today using a 2 potassium bath and a goal of 3 to 4 L ultrafiltration. His urine continues to have pyuria and hematuria. Urine culture once again grew yeast. I will treat this over the weekend and then repeat his urine next Saturday. If the urine remains abnormal then we will consider biopsy at that time. cc: Isidro Velazco MD
[2018-10-03] MEDS: ATIVAN IV PRN (20:25)
[2018-10-03] MEDS: APRESOLINE IV PRN (20:26)
[2018-10-04] MEDS: ATIVAN IV PRN (01:29)
[2018-10-04] MEDS: DUONEB (A & A) INH SCH ×4 (03:28→21:45)
[2018-10-04 06:53] LABS: ALBUMIN 3.1 g/dL (3.5-5.0); CALCIUM 8.5 mg/dL (8.8-10.2); CREATININE 5.8 mg/dL (0.7-1.2); PHOSPHORUS 5.2 mg/dL (2.7-4.5); POTASSIUM 3.9 mmol/L (3.5-5.1)
[2018-10-04] MEDS: HEPARIN SUBQ SCH ×3 (07:19→21:09)
[2018-10-04] MEDS: HUMULIN R SUBQ SCH ×4 (07:19→21:08)
--- NOTE | 2018-10-04 07:34 | Diag Imaging Result Doc PS360 ---
CHEST-PORTABLE - 10/04/2018 INDICATION: dyspnea COMPARISON: 10/02/2018 FINDINGS: Stable right-sided dialysis catheter in good position. Stable cardiomegaly and mild pulmonary vascular congestion. No infiltrates or edema. No significant pleural effusion. IMPRESSION: No change from prior. Electronically signed by Blas Grewal 10/04/2018 7:32 AM
[2018-10-04 07:57] LABS: HEMATOCRIT 34.9 % (42.0-52.0); HEMOGLOBIN 11.8 g/dL (14.0-18.0); MCH 31.9 PG (27-31); MCHC 33.8 g/dL (33-37); MCV 94.3 FL (81-99); RBC 3.7 XMIL (4.7-6.1); RDW 11.9 % (11.5-14.5); WBC 7.35 X1000 (4.8-10.8)
[2018-10-04] MEDS ORDERED: STERILE WATER INJ. INJ PRN (09:21)
[2018-10-04] MEDS ORDERED: GEODON IM PRN (09:21)
[2018-10-04 13:58] LABS: URINE SOURCE CATH
[2018-10-04 14:05] LABS: BILIRUBIN URINE NEGATIVE (NEGATIVE); BLOOD URINE LARGE (NEGATIVE); COLOR STRAW; GLUCOSE URINE NEGATIVE (NEGATIVE); KETONE URINE NEGATIVE (NEGATIVE); LEUKOCYTES URINE LARGE (NEGATIVE); NITRITE URINE NEGATIVE (NEGATIVE); PROTEIN URINE 50 mg/dL (NEGATIVE); TURBIDITY URINE HAZY (CLEAR); UROBILINOGEN URINE NORMAL (NORMAL)
[2018-10-04 14:06] LABS: UR EPITHELIAL CELLS <10 /HPF (<10); URINE BACTERIA NEGATIVE /HPF; URINE WBC TNTC /HPF (<10)
[2018-10-04 14:12] LABS: URINE YEAST PRESENT
--- NOTE | 2018-10-04 14:49 | PULMONOLOGY PROGRESS NOTE ---
DATE: 10/04/2018 SUBJECTIVE: The patient is awake and oriented to name and place. He is without specific complaints. OBJECTIVE: Vital Signs: The patient has been afebrile for the last 24 hours. BP 153/83, heart rate 80, respiratory rate 17, oxygen saturation 94% on Venturi mask. HEENT: Pupils are equal and reactive. Oropharynx is clear. Neck: Supple. Chest: Reveals prolonged expiratory phase with crackles in the bases. Cardiac exam: S1, S2. Abdomen: Obese and soft. Extremities: Reveal trace to 1+ peripheral edema. LABS/X-RAYS: Chest x-ray reveals cardiomegaly with mild vascular congestion. Arterial blood gas reveals no blood gas today. White blood count 7.35, pCO2 of 11.8, platelet count 249,000. Chemistry: Sodium 139, potassium 3.9, chloride 99, bicarbonate 24. BUN 38, creatinine 5.8, glucose 164. IMPRESSION: A 68-year-old with: 1. Acute hypoxemic respiratory failure. 2. Acute hypercapnic respiratory failure. 3. Acute renal failure. 4. Morbid obesity. 5. Encephalopathy. 6. Alcohol abuse, suspected. 7. Diabetes mellitus. 8. Pulmonary hypertension. 9. Severe aortic stenosis. PLAN: 1. Continue to wean oxygen as tolerated. 2. Continue BiPAP at bedtime and p.r.n. 3. Additional aortic valve management pending clinical improvement. 4. Continue to follow for encephalopathy. cc: Brandon Hernández MD
--- NOTE | 2018-10-04 16:57 | PROGRESS NOTE ---
DATE: 10/04/2018 SUBJECTIVE: The patient is resting comfortably. He is out of wrist restraints. No acute events noted overnight. OBJECTIVE: Vital Signs: Temperature 98.6 degrees, blood pressure 145/84, heart rate 75, respirations 18, O2 saturations 100% on a Ventimask. General: This is a morbidly obese male lying in bed in no acute distress. Heart: S1, S2 normal. Regular rate and rhythm. Lungs: Clear to auscultation bilaterally. Abdomen: Positive bowel sounds. Soft, obese, nontender, nondistended. Extremities: No edema, no cyanosis. Neurologic: The patient is alert and oriented x3. LABS: White blood cell count 7.3, hemoglobin 11, hematocrit 34, platelets 249,000, sodium 139, potassium 3.9, chloride 99, CO2 24, BUN 38, creatinine 5.8, glucose 164, phosphorus 5.2. Chest x-ray shows stable cardiomegaly and mild pulmonary vascular congestion. No edema. ASSESSMENT AND PLAN: 1. Acute hypoxemic and hypercapnic respiratory failure. Continue with BiPAP at night. 2. Acute pulmonary edema with volume overload. This is slightly improved. 3. Alcohol withdrawal. Slowly improving. The patient still has periods of confusion and does require wrist restraints on occasion. Will continue to monitor closely for improvement. We use p.r.n. Ativan. 4. Severe aortic stenosis. Aware. 5. Acute kidney injury. Management as per the edge dyer. 6. Diabetes mellitus type 2. Continue on sliding scale insulin. 7. Hepatic steatosis versus cirrhosis. GI is following. 8. Anemia. Stable. 9. Suspected obstructive sleep apnea. The patient will need to undergo a sleep study as outpatient. 10. Pulmonary hypertension. Aware. 11. Gastrointestinal prophylaxis. Continue on Protonix. 12. Deep vein thrombosis prophylaxis. Continue on heparin. cc: Helga Kirkpatrick MD [facility]
[2018-10-04] MEDS: DIFLUCAN 100 MG/NS 100 MG/50 ML IVPB IV SCH (17:01)
[2018-10-04] MEDS: PROTONIX IV SCH (17:01)
--- NOTE | 2018-10-04 17:54 | NEPHROLOGY PROGRESS NOTE ---
DATE: 10/04/2018 SUBJECTIVE: He is much more alert and appropriate today. Resting quietly. OBJECTIVE: Vital Signs: Blood pressure 100/64, heart rate 78, respirations 19, afebrile. Intake 1.6 L. Output 4.5 L. General: No acute distress. Skin is warm and dry. Neck veins are not distended. Heart: Is regular. No gallops. Lungs: Are equal. No crackles. Abdomen: Soft, nontender. Bowel sounds present. Extremities: Have no edema, clubbing, or cyanosis. IMPRESSION: Acute kidney injury. Presumed. We are treating his funguria and we will check his urine again on Saturday. If he still has significant abnormalities then we will consider biopsy. Hold dialysis over the weekend. Euvolemic today. cc: Isidro Velazco MD
[2018-10-04] MEDS: NEURONTIN PO SCH (21:09)
[2018-10-05] MEDS: ATIVAN IV PRN (01:16)
[2018-10-05] MEDS: DUONEB (A & A) INH SCH ×4 (02:50→21:01)
[2018-10-05 05:01] LABS: HEMATOCRIT 34.5 % (42.0-52.0); MCH 33.2 PG (27-31); MCHC 34.8 g/dL (33-37); MCV 95.6 FL (81-99); RBC 3.61 XMIL (4.7-6.1); RDW 11.9 % (11.5-14.5); WBC 8.64 X1000 (4.8-10.8)
[2018-10-05 05:16] LABS: ALLEN TEST YES; BE 1.7 mmoll (-3.0-3.0); BLOOD TYPE ARTERIAL; HCO3-(ACT) 26.2 mmoll (20.0-26.0); METHB 1.1 % (0.0-1.5); O2(CT) 17.2 mL/dL (15.0-23.0); O2HB 95.7 % (95.0-99.0); PCO2(98.6) 38 mmHg (35-45); PO2(98.6) 113 mmHg (60-100); SAMPLE BLOOD; SAO2 98.1 % (95.0-100.0); THB 12.7 g/dL (11.5-17.4); pH(98.6) 7.44 (7.35-7.45)
[2018-10-05 05:17] LABS: MODALITY BI PAP
[2018-10-05 05:33] LABS: ALBUMIN 3.3 g/dL (3.5-5.0); CALCIUM 9.1 mg/dL (8.8-10.2); CREATININE 6.6 mg/dL (0.7-1.2); POTASSIUM 3.9 mmol/L (3.5-5.1)
[2018-10-05] MEDS: HEPARIN SUBQ SCH ×3 (06:44→21:27)
[2018-10-05] MEDS: HUMULIN R SUBQ SCH ×4 (06:48→20:35)
--- NOTE | 2018-10-05 10:52 | PULMONOLOGY PROGRESS NOTE ---
DATE: 10/05/2018 SUBJECTIVE: The patient is awake, alert, and conversant. He reports he is doing okay. He is currently in restraints because he becomes confused and attempts to remove his medical devices. OBJECTIVE: Vital Signs: BP 121/77, heart rate 88, respiratory rate 18, oxygen saturation 96%. HEENT: Pupils are equal and reactive. Oropharynx is clear. Neck: Supple. Chest: Reveals prolonged expiratory phase with no wheezing. Cardiac Examination: S1-S2. Abdomen: Obese and soft. Extremities: Reveal trace to 1+ peripheral edema. Laboratories: Arterial blood gas reveals a pH of 7.44, pCO2 of 38, PO2 of 113 on BiPAP. White blood count 8.6, hemoglobin 12.0, platelet count 250,000. Sodium 138, potassium 3.9, chloride 98, bicarbonate 24, BUN 54, creatinine 6.6. IMPRESSION: A 68-year-old with: 1. Acute hypoxemic respiratory failure. 2. Acute hypercapnic respiratory failure. 3. Acute renal failure. 4. Morbid obesity. 5. Encephalopathy/delirium. 6. Alcohol abuse suspected. 7. Pulmonary hypertension. 8. Severe aortic stenosis. 9. Pulmonary hypertension. PLAN: 1. Continue to wean oxygen as tolerated. 2. We will continue to cycle BiPAP at bedtime and p.r.n. 3. Anticipate the need for additional aortic valve evaluation and treatment. cc: Brandon Hernández MD
--- NOTE | 2018-10-05 14:27 | PROGRESS NOTE ---
DATE: 10/05/2018 SUBJECTIVE: The patient is resting comfortably. He is currently eating breakfast. He still has periods of confusion with agitation. OBJECTIVE: Vital signs: Temperature is 98.3, blood pressure 118/71, heart rate 77, respirations 18, O2 saturation is 95% on 4 L nasal cannula. General: This is a morbidly obese male sitting up in bed, in no acute distress. Heart: S1, S2 normal. Regular rate and rhythm. Lungs: Equal air entry bilaterally. No crackles, no wheezing, no rales. Abdomen: Positive bowel sounds. Soft, obese, nontender and nondistended. Extremities: No edema and no cyanosis. Neurologic: The patient is alert and oriented x3. DIAGNOSTIC DATA: White blood cell count is 8.6, hemoglobin 12, hematocrit 34, platelets 250. Sodium is 138, potassium 3.9, chloride 98, CO2 is 24, BUN is 54, creatinine 6.6, glucose 206. Phosphorus 6, albumin 3.3. ASSESSMENT AND PLAN: 1. Acute hypoxemic and hypercapnic respiratory failure. Continue with BiPAP at night and nasal cannula during the day. 2. Alcohol withdrawal. Slowly improving. 3. Severe aortic stenosis. Aware. Further workup by the computer customer support specialist as the patient is medically stable. 4. Acute kidney injury. Management as per the physician gynecologist. 5. Hepatic steatosis versus cirrhosis. Management as per GI. 6. Diabetes mellitus type 2. Continue on sliding scale insulin. 7. Suspected obstructive sleep apnea. The patient will likely need a sleep study as outpatient. 8. Pulmonary hypertension. Aware. 9. Volume overload, improved. 10.GI prophylaxis. Continue on Protonix. 11.DVT prophylaxis. Continue on heparin. cc: Helga Kirkpatrick MD [facility]
[2018-10-05] MEDS: PROTONIX IV SCH (16:49)
[2018-10-05] MEDS: DIFLUCAN 100 MG/NS 100 MG/50 ML IVPB IV SCH (16:49)
[2018-10-05] MEDS: NEURONTIN PO SCH (20:35)
[2018-10-06] MEDS: DUONEB (A & A) INH SCH ×4 (03:23→21:09)
[2018-10-06] MEDS: HEPARIN SUBQ SCH ×3 (05:02→21:19)
[2018-10-06] MEDS: ATIVAN IV PRN (05:02)
[2018-10-06 05:58] LABS: HEMATOCRIT 33.9 % (42.0-52.0); HEMOGLOBIN 11.5 g/dL (14.0-18.0); MCH 32.8 PG (27-31); MCHC 33.9 g/dL (33-37); MCV 96.6 FL (81-99); RBC 3.51 XMIL (4.7-6.1); WBC 9.29 X1000 (4.8-10.8)
[2018-10-06 06:34] LABS: ALBUMIN 2.9 g/dL (3.5-5.0); CALCIUM 9.1 mg/dL (8.8-10.2); CREATININE 7.2 mg/dL (0.7-1.2); PHOSPHORUS 7.8 mg/dL (2.7-4.5)
[2018-10-06] MEDS: HUMULIN R SUBQ SCH ×4 (06:42→21:18)
--- NOTE | 2018-10-06 07:16 | Diag Imaging Result Doc PS360 ---
EXAM: CHEST-PORTABLE INDICATION: abnormal exam TECHNIQUE: One view COMPARISON: 10/04/2018 FINDINGS: The right central line is in stable position. The mild pulmonary venous congestion has improved. No new consolidation is identified. Cardiac silhouette is stable. IMPRESSION: Interval improvement of the mild pulmonary venous congestion. Electronically signed by Layo Soria 10/06/2018 7:13 AM
[2018-10-06] MEDS ORDERED: NS 2,000 ML MISC PRN (08:47)
[2018-10-06] MEDS ORDERED: TIGHT: 0.2 ML/HR FOR DIALYSIS MISC PRN (08:47)
[2018-10-06] MEDS ORDERED: HEPARIN IV PRN (08:47)
[2018-10-06 09:40] LABS: URINE SOURCE CATH
[2018-10-06 09:47] LABS: BILIRUBIN URINE NEGATIVE (NEGATIVE); BLOOD URINE MODERATE (NEGATIVE); COLOR YELLOW; GLUCOSE URINE NEGATIVE (NEGATIVE); KETONE URINE NEGATIVE (NEGATIVE); LEUKOCYTES URINE LARGE (NEGATIVE); NITRITE URINE NEGATIVE (NEGATIVE); PH URINE 6.5; PROTEIN URINE TRACE mg/dL (NEGATIVE); TURBIDITY URINE CLEAR (CLEAR); UROBILINOGEN URINE NORMAL (NORMAL)
[2018-10-06] MEDS: NORCO-5 PO PRN (09:48)
[2018-10-06 09:56] LABS: UR EPITHELIAL CELLS <10 /HPF (<10); URINE BACTERIA NEGATIVE /HPF; URINE RBC <10 /HPF (<10); URINE WBC TNTC /HPF (<10)
[2018-10-06 10:22] LABS: URINE YEAST PRESENT
--- NOTE | 2018-10-06 10:31 | NEPHROLOGY PROGRESS NOTE ---
DATE: 10/06/2018 SUBJECTIVE: Patient is sitting up in bed. He has just spilled coffee over himself. OBJECTIVE: Vital Signs: Temperature 98.2 degrees, pulse 74, respiratory rate 21, blood pressure 142/95. Intake and Output: Intake 1.8 L. Output 2.3 L. General: This is an elderly gentleman resting in bed. He is awake and alert. He is inappropriate at times. HEENT: Normocephalic, atraumatic. Oral mucosa moist. Dentition poor. Neck: Supple without JVD. Cardiovascular: Regular rate and rhythm. Pulmonary: He has no increased work of breathing. Abdomen: Round, soft. Positive bowel sounds. Genitourinary: Catheter. Extremities: No edema, clubbing, cyanosis. Integumentary: Skin is warm and dry. LABORATORY DATA: WBC of 9.2, hemoglobin 11.5. Sodium 139, potassium 5.0, chloride 98, CO2 of 24, BUN 68, creatinine 7.2. ASSESSMENT AND PLAN: 1. Acute kidney injury. We did urinalysis this morning. It indicated he had trace protein, moderate blood, large leukocytes, too numerous to count WBCs. We will dialyze the patient today on a 2 K bath/2 L, a 3-1/2 hour treatment. Considering biopsy now that he can participate. 2. Alcohol withdrawal. Continues to have confusion and some inappropriateness. Apparently, he has improved some over the weekend, and I think he is supposed to move to the regular floor. 3. Hypoxemic hypercapnic respiratory failure. He has been continued on BiPAP at night. He is followed by Pulmonology. 4. Hepatic steatosis versus cirrhosis. He is being followed by Gastroenterology. Dictated by RALF Mullins for Isidro Velazco MD Face to face encounter, data reviewed, discussed with Portia Ozuna on 10/06/18. I agree with the above assessment and plan of care. cc: Isidro Velazco MD [facility]
--- NOTE | 2018-10-06 15:22 | PROGRESS NOTE ---
DATE: 10/06/2018 SUBJECTIVE: The patient is awake and alert this morning. He is answering questions appropriately and he received Ativan once early this morning. OBJECTIVE: Vital Signs: Temperature 98.4, blood pressure 130/75, heart rate 70, respirations 18. O2 sats 97% on 4 L nasal cannula. General: This is a chronically ill-appearing elderly male lying in bed in no acute distress. Heart: S1, S2 normal. Regular rate and rhythm. Lungs: Equal air entry bilaterally. No crackles. No rales. Abdomen: Positive bowel sounds. Soft, nontender, nondistended. Extremities: No edema, no cyanosis. Neurologic: The patient is alert and oriented x 3. LABS: White blood cell count 9.2, hemoglobin 11, hematocrit 33, platelets 211,000. Sodium 139, potassium 5, chloride 98, CO2 24, BUN 68, creatinine 7.2, glucose 157, albumin 2.9. ASSESSMENT AND PLAN: 1. Acute hypoxemic and hypercapnic respiratory failure. Improved. Continue with BiPAP at night and nasal cannula during the day. 2. Alcohol withdrawal. Improved. 3. Severe aortic stenosis. Aware. 4. Acute kidney injury. 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 5. Diabetes mellitus type 2. Continue on sliding scale insulin. 6. Pulmonary hypertension. Aware. 7. Suspected obstructive sleep apnea. The patient will be scheduled for an outpatient sleep study. 8. Hepatic steatosis versus cirrhosis. Management as per GI. 9. Volume overload. Improved. 10. Anemia. Stable. 11. GI prophylaxis. Continue on IV Protonix. 12. DVT prophylaxis. Continue on heparin. cc: Helga Kirkpatrick MD MTD
--- NOTE | 2018-10-06 17:05 | GASTROENTEROLOGY PROGRESS NOTE ---
DATE: 10/06/2018 SUBJECTIVE: The patient had been moved to a regular room over the weekend. Currently, he is awake and alert. He had just eaten lunch and ate most of his meal. He has denied any trouble with dysphagia. The patient was also seen by Dr. Schaffer. OBJECTIVE: Vital Signs: Temperature 98.4 degrees, pulse 70, respirations 18, blood pressure 138/75. General: The patient is awake, alert, no acute distress. LABORATORY DATA: Hematology: WBC 9.29, hemoglobin 11.5, hematocrit 33.9, MCV 96.6. Chemistry: Sodium 139, potassium 5.0, chloride 98, CO2 24, BUN 68, creatinine 7.2, glucose 157, calcium 9.1, phosphorus 7.8, albumin 2.9. ASSESSMENT AND PLAN: 1. Acute respiratory failure has improved. He is on BiPAP at night and oxygen during the day. 2. Alcohol withdrawal has improved. 3. Dysphagia has improved once his mental status improved. He is tolerating a regular diet without problems. Would recommend the patient follow up with us as an outpatient and if needed, endoscopy can be done as an outpatient. There is mention of hepatic steatosis versus cirrhosis. We will also need to follow this as an outpatient. The patient was also seen today by Dr. Schaffer. Dictated by RALF Esquivel for Zane Schaffer MD cc: RALF Madrid MD
[2018-10-06] MEDS: DIFLUCAN 100 MG/NS 100 MG/50 ML IVPB IV SCH (17:43)
[2018-10-06] MEDS: SODIUM CHLORIDE 0.9% INJ SCH (17:44)
[2018-10-06] MEDS: PROTONIX IV SCH (17:44)
[2018-10-06] MEDS: NEURONTIN PO SCH (21:20)
[2018-10-07] MEDS: DUONEB (A & A) INH SCH ×4 (05:36→21:55)
[2018-10-07 06:26] LABS: HEMATOCRIT 34.7 % (42.0-52.0); HEMOGLOBIN 11.6 g/dL (14.0-18.0); MCH 32.1 PG (27-31); MCHC 33.4 g/dL (33-37); MCV 96.1 FL (81-99); MPV 9.9 FL (7.4-10.4); RBC 3.61 XMIL (4.7-6.1); WBC 7.88 X1000 (4.8-10.8)
[2018-10-07 06:57] LABS: ALBUMIN 3.4 g/dL (3.5-5.0); CREATININE 4.7 mg/dL (0.7-1.2); POTASSIUM 3.9 mmol/L (3.5-5.1)
[2018-10-07 07:36] LABS: INR 0.98; PROTIME 13.7 Seconds (11.0-16.0)
[2018-10-07 07:37] LABS: PTT 42.6 Seconds (22.3-41.8)
[2018-10-07] MEDS: HUMULIN R SUBQ SCH ×4 (07:43→21:34)
[2018-10-07] MEDS: HEPARIN SUBQ SCH ×3 (07:44→21:33)
--- NOTE | 2018-10-07 08:38 | NEPHROLOGY PROGRESS NOTE ---
DATE: 10/07/2018 SUBJECTIVE: Patient resting in bed. No complaints today. He underwent dialysis yesterday without issue. OBJECTIVE: Vital Signs: Temperature 97.7 degrees, pulse 76, respiratory rate 19, blood pressure 146/78. Intake 720 mL, output 4.3 L. General: This is a middle-aged gentleman resting in bed. He does not appear in any distress. HEENT: Normocephalic, atraumatic. ZEINA. Oral mucosa moist. Neck: Supple. Do not discern JVD. Cardiovascular: Regular rate and rhythm. Pulmonary: No increased work of breathing. Abdomen: Round, soft, positive bowel sounds. : He continues with Arevalo catheter with light clear yellow urine. Extremities: No clubbing, cyanosis or edema. Integumentary: Skin remains warm and dry. LAB DATA: Pending. ASSESSMENT AND PLAN: 1. Acute kidney injury. We dialyzed the patient yesterday. Plan to hold dialysis today and check labs again in the morning. 2. Urinary tract infection, fungemia. Continues with yeast growing in his urine. We will continue his current treatment plan and, once this is cleared, will help to make a determination if the patient does need a biopsy. Of note, the patient's protein in his urine is significantly diminished. 3. Alcohol withdrawal. Continues with mild confusion and some occasional inappropriateness. Continues to improve. Followed by primary. 4. Hypoxemic hypercapnic respiratory failure. Remains on BiPAP at night. 5. Hepatic steatosis versus cirrhosis. Followed by GI. 6. Electrolytes, acid-base balance. Again his labs are pending today. They have been fairly stable thus far. Continue to monitor. Dictated by RALF Mullins for Isidro Velazco MD Face to face encounter, data reviewed, discussed with Portia Ozuna on 10/07/18. I agree with the above assessment and plan of care. cc: Isidro Velazco MD [facility]
[2018-10-07] MEDS: DIFLUCAN 100 MG/NS 100 MG/50 ML IVPB IV SCH (17:00)
--- NOTE | 2018-10-07 18:19 | GASTROENTEROLOGY PROGRESS NOTE ---
DATE: 10/07/2018 SUBJECTIVE: Patient was lying in bed. He was awake and alert. No acute distress. He states he does not feel as well today as he did yesterday. He denies trouble with dysphagia. He is tolerating his diet. OBJECTIVE: Vital Signs: Temperature 98.4 degrees, pulse 80, respirations 18, blood pressure 108/72. General: Patient is awake, alert, no acute distress. LABORATORY: Hematology: WBCs 7.88, hemoglobin 11.6, hematocrit 34.7, MCV 96.1, platelet 148,000. Chemistry: Sodium 136, potassium 3.9, chloride 96, CO2 34, BUN 51, creatinine 4.7, glucose 196, calcium 9.0, phosphorus 6.0, albumin 3.4. ASSESSMENT AND PLAN: 1. Recent acute respiratory failure. Has improved. 2. Alcohol withdrawal. He has gone through DTs. 3. Dysphagia has improved, when his mental status improved. He is tolerating a regular diet. 4. Acute kidney injury. Patient has been on dialysis. He received dialysis yesterday. Gastroenterology will continue to follow. Recommend he follow up with us as an outpatient. Currently, his dysphagia has resolved. I have discussed this case with Dr. Schaffer. Dictated by RALF Esquivel for Zane Schaffer MD cc: RALF Madrid MD
[2018-10-07] MEDS: PROTONIX IV SCH (19:16)
[2018-10-07] MEDS: SODIUM CHLORIDE 0.9% INJ SCH (19:16)
[2018-10-07] MEDS: NEURONTIN PO SCH (21:33)
--- NOTE | 2018-10-07 22:35 | PROGRESS NOTE ---
DATE: 10/07/2018 SUBJECTIVE: Patient is clinically improved. No major complaints. Mental status is greatly improved. OBJECTIVE: Vital signs: Blood pressure 136/71, heart rate 76, respiratory rate 16, temperature 98.8 degrees, saturation 98% on 3 L. Cardiovascular: Regular rate and rhythm. Pulmonary: Bilateral breath sounds. Clear to auscultation. Gastrointestinal: Soft, nontender, nondistended. Bowel sounds are positive. LABORATORY DATA: White count is 7, H and H 11 and 34, platelets 148,000. Coag's okay except for PTT of 4.26. Creatinine is 4.7. PROBLEM LIST: 1. Acute hypoxic respiratory failure. Seems to be better on BiPAP. 2. Alcohol withdrawal syndrome with encephalopathy. Also improving. 3. Severe aortic stenosis. We will continue medication. 4. Acute kidney injury. Seems to be resolving. Renal has been consulted. 5. Type 2 diabetes. We will continue sliding scale insulin and follow. 6. Pulmonary hypertension, sleep apnea. We will set up for outpatient sleep study. 7. Hepatic steatosis. We will continue to follow. Gastroenterology recommends outpatient endoscopy. DISPOSITION: He is not doing very well with PT, so we may have to look at rehab options. We will continue to follow closely. cc: Deni Humphries MD
[2018-10-08] MEDS: DUONEB (A & A) INH SCH ×5 (03:44→21:22)
[2018-10-08] MEDS: NORCO-5 PO PRN (04:47)
[2018-10-08 06:19] LABS: HEMATOCRIT 34.7 % (42.0-52.0); HEMOGLOBIN 11.8 g/dL (14.0-18.0); MCH 32.6 PG (27-31); MCV 95.9 FL (81-99); MPV 10.6 FL (7.4-10.4); RBC 3.62 XMIL (4.7-6.1); RDW 12.1 % (11.5-14.5); WBC 8.34 X1000 (4.8-10.8)
[2018-10-08] MEDS: HEPARIN SUBQ SCH ×3 (06:38→22:04)
[2018-10-08] MEDS: HUMULIN R SUBQ SCH ×5 (06:50→22:03)
[2018-10-08 07:29] LABS: ALBUMIN 3.5 g/dL (3.5-5.0); CALCIUM 9.1 mg/dL (8.8-10.2); CREATININE 5.4 mg/dL (0.7-1.2); PHOSPHORUS 5.2 mg/dL (2.7-4.5); POTASSIUM 4.2 mmol/L (3.5-5.1)
--- NOTE | 2018-10-08 08:00 | NEPHROLOGY PROGRESS NOTE ---
DATE: 10/08/2018 SUBJECTIVE: Patient resting in bed. States he has a headache. He has been given some medication. OBJECTIVE: Vital Signs: Temperature 98.3 degrees, pulse 72, respiratory rate 16, blood pressure 113/70. Intake 1.3 L. Output 2 L voided urine. General: This is a middle- aged gentleman resting in bed. No acute distress. HEENT: Normocephalic, atraumatic. ZEINA. Oral mucosa moist. Neck: Supple. Unable to distinguish any JVD. Cardiovascular: Regular rate and rhythm. Pulmonary: No increased work of breathing. Abdomen: Round, soft, positive bowel sounds. Genitourinary: Arevalo catheter with clear yellow urine. Extremities: No clubbing, cyanosis. Maybe perhaps trace edema. Integumentary: Warm and dry. LABORATORY DATA: Creatinine 5.4 (4.7), sodium 134, potassium 4.2, CO2 17. Hemoglobin 11.8. ASSESSMENT AND PLAN: 1. Acute kidney injury. We held dialysis yesterday. Today labs indicated rising creatinine. Anticipate we will dialyze later today. 2. Urinary tract infection, fungemia. Continue his current medication plan. 3. Electrolytes, acid-base balance, anemia. These are all stable. Dictated by RALF Mullins for Isidro Velazco MD Face to face encounter, data reviewed, discussed with Portia Ozuna on 10/08/18. I agree with the above assessment and plan of care. cc: Isidro Velazco MD [facility]
[2018-10-08] MEDS ORDERED: NS 2,000 ML MISC PRN (11:39)
[2018-10-08] MEDS ORDERED: HEPARIN IV PRN (11:39)
--- NOTE | 2018-10-08 16:14 | GASTROENTEROLOGY PROGRESS NOTE ---
DATE: 10/08/2018 SUBJECTIVE: Patient is awake, alert, and in no acute distress. He says he does not like the hospital food. During my rounds, I have missed seeing his daughter, who usually comes in the mornings. I have called and spoken with her on the phone. She states that when she comes to visit her father in the mornings when he is eating breakfast, she will notice extreme coughing and choking about fpc through his meal. Nurse does report noticing coughing when he eats. OBJECTIVE: Vital Signs: Temperature 97.9 degrees, pulse 73, respirations 16, blood pressure 121/73. General: Patient is awake and alert. No acute distress noted. LABORATORY: Hematology: WBC 8.34 hemoglobin 11.8, hematocrit 34.7, MCV 95.9, platelet 134. Chemistry: Sodium 137, potassium 4.2, chloride 95, CO2 25. BUN 64, creatinine 5.4, glucose 173. ASSESSMENT AND PLAN: 1. Recent alcohol withdrawal syndrome and encephalopathy have improved. 2. Acute kidney injury. Following with Nephrology. He is receiving dialysis and should receive dialysis today. 3. Dysphagia. Patient's dysphagia seemed to have improved once his encephalopathy had improved, but there are reports of him getting choked and coughing. We will proceed with an esophagogastroduodenoscopy for further evaluation. Depending on findings, he may need modified barium swallow for further workup. Further plans to be made as needed. I have discussed the procedure along with benefits and risks with the daughter, and she wishes to proceed. 4. Hepatic steatosis versus cirrhosis. Would recommend he follow up with us as an outpatient for further evaluation and management. PLAN: Continue current diet. Hold n.p.o. after midnight. Plan for EGD tomorrow. Further plans will be made according to findings. I have discussed this case with Dr. Schaffer. Dictated by RALF Esquivel for Zane Schaffer MD cc: RALF Madrid MD [facility]
[2018-10-08] MEDS: DIFLUCAN 100 MG/NS 100 MG/50 ML IVPB IV SCH (18:18)
[2018-10-08] MEDS: SODIUM CHLORIDE 0.9% INJ SCH (18:19)
[2018-10-08] MEDS: PROTONIX IV SCH (18:19)
[2018-10-08] MEDS ORDERED: HALDOL IV PRN (18:37)
--- NOTE | 2018-10-08 19:22 | PROGRESS NOTE ---
DATE: 10/08/2018 SUBJECTIVE: The patient has no major complaints. He seems to be doing better. Still probably some degree of intermittently confused, but he seems to be doing better. OBJECTIVE: Vital Signs: Blood pressure is 121/73, heart rate 73, respiratory rate 16, temperature 97.9 degrees, 94% on room air. Cardiovascular: Regular rate and rhythm. Pulmonary: Bilateral breath sounds. GI: Soft, nontender, nondistended. Bowel sounds are positive. Extremities: No clubbing or cyanosis. Skin: On his face, he has erythema and just kind of dry crusting lesions around his nose, almost looks like desquamation related to skin dryness and probably BiPAP irritation. LABORATORY DATA: White count is 8, hemoglobin and hematocrit 11 and 34, platelets 134,000. Creatinine 5.4, glucose 245. PROBLEM LIST: 1. Acute hypoxic respiratory failure. He seems to be better, weaning BiPAP. 2. Alcohol withdrawal syndrome with encephalopathy, stable currently. 3. Severe aortic stenosis. We are continuing medications, but he is not really on any medications. He has previously been on lisinopril which we are holding because of kidney dysfunction. We have to be careful with afterload reduction and rate limiting medications. We will monitor. 4. Acute renal failure, kidney failure, consistent with acute tubular necrosis. He is still on dialysis. He is getting dialysis today. I examined him in the hemodialysis unit. Dr. Simental is following, deciding about long-term dialysis. 5. Dysphagia. GI is now recommending an inpatient endoscopy, which I guess he is going to get that done and then a swallowing evaluation to determine about dysphagia. 6. Diabetes is not well controlled. He is not on any medication as such for that. His A1c has not been analyzed since admission, but I do think he is diabetic based on multiple blood sugars above 200, so we will continue to follow those. He is on sliding scale. I am going to start some Lantus at low dose, and he may need additional medications, but we will continue to follow closely. DISPOSITION: Anticipate rehabilitation. We are, I think, looking at rehabilitation options for this patient. cc: Deni Humphries MD
[2018-10-08] MEDS ORDERED: LANTUS INSULIN SUBQ SCH (21:00)
[2018-10-08] MEDS: NEURONTIN PO SCH (22:03)
[2018-10-09] MEDS: DUONEB (A & A) INH SCH ×4 (03:20→21:40)
[2018-10-09] MEDS: HEPARIN SUBQ SCH ×3 (06:33→22:35)
[2018-10-09] MEDS: HUMULIN R SUBQ SCH ×4 (06:43→22:41)
[2018-10-09 06:53] LABS: BASO# 0.02 X1000 (0.0-0.2); BASO% 0.3 % (0.0-0.8); EOS# 0.15 X1000 (0.0-0.7); EOS% 1.9 % (0.0-10.0); HEMATOCRIT 36.5 % (42.0-52.0); HEMOGLOBIN 12.4 g/dL (14.0-18.0); IMM GRAN# 0.06 X1000 (0.0-0.04); IMM GRAN% 0.8 % (0.0-0.5); LYMPH# 1.54 X1000 (1.2-3.4); LYMPH% 19.8 % (20.5-51.1); MCV 94.3 FL (81-99); MONO# 1.19 X1000 (0.11-0.59); MONO% 15.3 % (1.7-9.3); MPV 11.4 FL (7.4-10.4); NEUT# 4.83 X1000 (1.4-6.5); NEUT% 61.9 % (42.2-75.2); PLT 107 X1000 (130-400); RBC 3.87 XMIL (4.7-6.1); RDW 12.1 % (11.5-14.5); WBC 7.79 X1000 (4.8-10.8)
[2018-10-09 07:19] LABS: HEMOGLOBIN A1C 8.3 % (4.8-6.0)
[2018-10-09 07:22] LABS: ALBUMIN 3.6 g/dL (3.5-5.0); CALCIUM 9.1 mg/dL (8.8-10.2); CREATININE 3.4 mg/dL (0.7-1.2); PHOSPHORUS 4.6 mg/dL (2.7-4.5); POTASSIUM 3.6 mmol/L (3.5-5.1)
[2018-10-09 07:26] LABS: URINE SOURCE CLEAN CATCH
[2018-10-09 07:36] LABS: BILIRUBIN URINE NEGATIVE (NEGATIVE); BLOOD URINE MODERATE (NEGATIVE); COLOR YELLOW; GLUCOSE URINE NEGATIVE (NEGATIVE); KETONE URINE NEGATIVE (NEGATIVE); LEUKOCYTES URINE LARGE (NEGATIVE); NITRITE URINE NEGATIVE (NEGATIVE); PROTEIN URINE 30 mg/dL (NEGATIVE); TURBIDITY URINE CLEAR (CLEAR); UROBILINOGEN URINE NORMAL (NORMAL)
[2018-10-09 07:43] LABS: UR EPITHELIAL CELLS <10 /HPF (<10); URINE BACTERIA NEGATIVE /HPF; URINE WBC 20-40 /HPF (<10)
[2018-10-09 07:55] LABS: URINE CASTS NONE SEEN; URINE CRYSTALS NONE SEEN; URINE SMALL ROUND CELLS NONE SEEN; URINE YEAST PRESENT
--- NOTE | 2018-10-09 14:29 | Diag Imaging Result Doc PS360 ---
EXAM: Air contrast BA SWALLOW 10/09/2018 HISTORY: dysphagia TECHNIQUE: Air contrast barium swallow, 32 images, one minute 31 seconds fluoroscopy time, 2286.6 cGy. COMMENT: The patient is able to swallow barium relatively easily. The examination was limited due to the patient's mobility. There is some tertiary contractions in the distal esophagus. There is no evidence of reflux, stricture, fixed intraluminal filling defect or mucosal ulceration. No aspiration occurred during the examination. IMPRESSION: No definite abnormality. Electronically signed by Kirit Barber 10/09/2018 2:27 PM
--- NOTE | 2018-10-09 14:49 | NEPHROLOGY PROGRESS NOTE ---
DATE: 10/09/2018 SUBJECTIVE: Patient resting in bed asleep. He does not appear in any distress. OBJECTIVE: Vital signs: Afebrile, pulse 81, respiratory rate 16, blood pressure 124/67, intake 200 mL, output 2 L on dialysis. General: This is a middle-aged gentleman resting in bed. He is asleep, no acute distress. HEENT: Normocephalic, atraumatic. His oral mucosa appears dry. Neck: Supple. Unable to determine JVD. Cardiovascular: Regular rate and rhythm. Pulmonary: Clear bilaterally. No increased work of breathing. Abdomen: Obese, soft, positive bowel sounds. : He is voiding. Extremities: Trace edema. No clubbing or cyanosis. Integumentary: Skin is warm and dry. LAB DATA: WBC is 7.7, hemoglobin 12.4. Sodium 140, potassium 3.6, CO2 26, creatinine 3.4, phosphorus 4.6. ASSESSMENT AND PLAN: 1. Acute kidney injury. We dialyzed yesterday. The patient has not had recovery as of yet. It is noted that just a months ago he had normal kidney function. His urine has continued with funguria. His protein levels in the urine have greatly decreased. Still consider biopsy if patient does not soon begin to have improvement. 2. Electrolytes, acid-base balance, anemia, stable. 3. Disposition. I believe they are looking at rehab for this patient and if that is the case he will need a tunneled catheter before he leaves. Dictated by RALF Mullins for Isidro Velazco MD Face to face encounter, data reviewed, discussed with Portia Ozuna on 10/09/18. I agree with the above assessment and plan of care. cc: Isidro Velazco MD [facility]
[2018-10-09] MEDS: SODIUM CHLORIDE 0.9% INJ SCH (17:22)
[2018-10-09] MEDS: PROTONIX IV SCH (17:22)
[2018-10-09] MEDS: DIFLUCAN PO SCH (18:07)
--- NOTE | 2018-10-09 18:21 | PROGRESS NOTE ---
DATE: 10/09/2018 SUBJECTIVE: The patient has no major complaints. OBJECTIVE: Blood pressure 130/74, heart rate 76, respiratory 16, temperature 98.7 degrees. Cardiovascular: Regular rate and rhythm. Pulmonary: Bilateral breath sounds, clear to auscultation. GI: Soft, nontender, nondistended. Bowel sounds are positive. LABORATORY DATA: White count 7, hemoglobin and hematocrit 12 and 36, platelets were 107,000, which is a little bit of a drop. BUN and creatinine are 42 and 3.4. Urine looked okay. ASSESSMENT AND PLAN: Problem list: 1. Acute hypoxic respiratory failure. Overall he seems to be improved. We will continue to monitor. 2. Encephalopathy, alcohol withdrawal syndrome that seems to have resolved. He has a pretty good outlook on things. 3. Severe aortic stenosis. He is stable. We just kind of monitoring that. Dr. Wilson has evaluated the patient and not recommending any major issues, and recommended transcatheter aortic valve replacement procedure as an outpatient. In any case, he is overall stabilized. 4. Dysphagia. Attempted esophagogastroduodenoscopy, but Anesthesia felt there was too high risk because of aortic stenosis. We did do an upper gastrointestinal series and that looked okay, so just continue Prilosec and follow. 5. Acute tubular necrosis. Renal failure. He is getting dialysis per dialysis service. 6. Diabetes. We initiated some Lantus, but blood sugars really have not changed whatsoever, so we will continue that. I may double his dose. 7. Disposition: We are looking at rehab, inpatient rehab options. cc: Deni Humphries MD
[2018-10-09] MEDS: NORCO-5 PO PRN (19:40)
--- NOTE | 2018-10-09 20:03 | GASTROENTEROLOGY PROGRESS NOTE ---
DATE: 10/09/2018 ADDENDUM: This is an addendum to the progress note from this morning. The patient was scheduled for EGD and possible esophageal dilation, but after discussion with the family and anesthesiologist it was decided to postpone his EGD, especially in the wake of high risk with this procedure at this time. He needs to have his cardiac conditions stabilize before putting him through anesthesia for an elective procedure. He has been able to eat but has had some problem, especially coughing after he eats. His EGD was postponed, and I encouraged the patient to eat while sitting upright, eat smaller bites and chew his food good. I also encouraged him to swallow with his chin down. Will follow. cc: Zane Schaffer MD
[2018-10-09] MEDS ORDERED: LANTUS INSULIN SUBQ SCH (21:00)
[2018-10-09] MEDS: NEURONTIN PO SCH (22:35)
[2018-10-10] MEDS: DUONEB (A & A) INH SCH ×4 (03:42→22:15)
[2018-10-10] MEDS: HEPARIN SUBQ SCH ×3 (06:25→21:25)
[2018-10-10] MEDS: HUMULIN R SUBQ SCH ×4 (07:06→21:56)
[2018-10-10 07:18] LABS: ALBUMIN 3.6 g/dL (3.5-5.0); CALCIUM 9.3 mg/dL (8.8-10.2); CREATININE 3.8 mg/dL (0.7-1.2); PHOSPHORUS 4.9 mg/dL (2.7-4.5); POTASSIUM 3.7 mmol/L (3.5-5.1)
[2018-10-10] MEDS: DIFLUCAN PO SCH (09:14)
--- NOTE | 2018-10-10 10:00 | NEPHROLOGY PROGRESS NOTE ---
DATE: 10/10/2018 SUBJECTIVE: He is lying in bed flat. No complaints today. No shortness of breath, nausea, vomiting etc. OBJECTIVE: Vital Signs: Blood pressure 130/79, heart rate 67, respirations 16, afebrile. Intake 200 mL. Output 1 L. General: No acute distress. Skin: Warm and dry with scaling. HEENT: Conjunctivae are pink. Pupils are equal. Neck: Neck veins are not distended. Heart: Regular. I can't appreciate any murmurs. Lungs: Have equal breath sounds. No crackles. Abdomen: Soft, nontender. Bowel sounds present. Extremities: No edema, clubbing or cyanosis. IMPRESSION: Acute kidney injury. We are awaiting his labs this morning to decide regarding dialysis. His Arevalo catheter is out. He is receiving fluconazole for funguria. Continue current care. cc: Isidro Velazco MD
--- NOTE | 2018-10-10 14:00 | GASTROENTEROLOGY PROGRESS NOTE ---
DATE: 10/10/2018 SUBJECTIVE: Patient is currently lying flat in the bed. He has his breakfast tray over his lap. He has not eaten his breakfast yet. He currently denies complaints. I believe his mental status comes and goes. He covers up any confusion or disorientation well with joking. He is currently oriented to person and place. OBJECTIVE: Vital Signs: Temperature 98.6, pulse 70, respirations 16, blood pressure 131/72. General: Patient is awake. He is oriented to person and place, although it took him a minute to remember that he was at [facility]. We had scheduled patient for an EGD for evaluation of dysphagia and choking, but Anesthesia felt it was too high risk to proceed with the procedure. A barium swallow was performed that showed some tertiary contractions in the distal esophagus, otherwise no evidence of reflux, stricture, filling defect or ulceration. No aspiration occurred during that examination. LABORATORY: Hematology: WBC 7.79, hemoglobin 12.4, hematocrit 36.5, MCV 94.3, platelet 107. Chemistry: Sodium 135, potassium 3.7, chloride 96, CO2 26, BUN 53, creatinine 3.8, glucose 183. ASSESSMENT AND PLAN: 1. Acute respiratory failure has improved. 2. Encephalopathy with a history of alcohol abuse. He is currently oriented, but sometimes takes awhile to recall things. 3. Dysphagia. Esophagogastroduodenoscopy was scheduled but Anesthesia decided it was too high-risk for sedation, so a barium swallow was done instead that shows no evidence of aspiration or active reflux. Will continue Prilosec. 4. Severe aortic stenosis. Patient has been seen by Cardiology with workup recommended as an outpatient. 5. Acute tubular necrosis. Following with Nephrology. Continue dialysis per their recommendation. PLAN: Continue PPI. Continue strict anti-reflux measures. Patient needs to be sitting fully upright. I have recommended he be up in a chair with all meals. I have spoken with the nurse and reiterated this. Will continue to follow. Further plans to be made according to his progress. I have discussed this case with Dr. Schaffer. Dictated by RALF Esquivel for Zane Schaffer MD cc: RALF Madrid MD [facility]
--- NOTE | 2018-10-10 16:39 | PROGRESS NOTE ---
DATE: 10/10/2018 SUBJECTIVE: Patient has no major complaints. OBJECTIVE: Blood pressure 130/85, heart rate 77, respiratory rate 20, temperature afebrile , 94% on room air.Cardiovascular: Regular rate and rhythm. Pulmonary: Bilateral breath sounds. Clear to auscultation. Gastrointestinal: Soft, nontender, nondistended. Bowel sounds are positive. LABORATORY DATA: I do not have any new data except creatinine of 3.8. Now, somewhat disappointingly, he did not participate in PT today, so that is not helpful situation. PROBLEM LIST: 1. Acute kidney injury, acute tubular necrosis. He is still getting dialysis per Dr. Velazco. At this point, I do not think he is getting dialysis. I guess I will reassess tomorrow. 2. Dysphagia. He seems to be eating okay without any difficulty. He is on PPI. I did do an upper GI series which was negative. He is on Prilosec. 3. Severe aortic stenosis and they recommend an outpatient workup, which I am not really sure there is much to do except set him up for a TAVR which is not going to be done immediately. 4. Disposition: We are looking at rehab options. We need to encourage the patient, though, because he is not going to be able to go to rehab if he is refusing rehab PT. 5. Diabetes. Appears to be overall is not well controlled. We will need to adjust his insulin. He is on Lantus, which I started yesterday evening and I am going to bump him up to 30. 6. Encephalopathy. He seems to be doing better, so we will continue to follow closely. cc: Deni Humphries MD [facility]
[2018-10-10] MEDS: PROTONIX IV SCH (18:10)
[2018-10-10] MEDS ORDERED: LANTUS INSULIN SUBQ SCH (21:00)
[2018-10-10] MEDS: NEURONTIN PO SCH (21:25)
[2018-10-11] MEDS: DUONEB (A & A) INH SCH ×4 (03:54→22:38)
[2018-10-11 06:19] LABS: BASO# 0.02 X1000 (0.0-0.2); BASO% 0.3 % (0.0-0.8); EOS# 0.18 X1000 (0.0-0.7); EOS% 2.4 % (0.0-10.0); HEMATOCRIT 34.9 % (42.0-52.0); HEMOGLOBIN 12.2 g/dL (14.0-18.0); IMM GRAN# 0.05 X1000 (0.0-0.04); IMM GRAN% 0.7 % (0.0-0.5); LYMPH# 1.86 X1000 (1.2-3.4); LYMPH% 24.9 % (20.5-51.1); MCH 32.5 PG (27-31); MCV 93.1 FL (81-99); MONO# 0.92 X1000 (0.11-0.59); MONO% 12.3 % (1.7-9.3); MPV 10.9 FL (7.4-10.4); NEUT# 4.43 X1000 (1.4-6.5); NEUT% 59.4 % (42.2-75.2); PLT 127 X1000 (130-400); RBC 3.75 XMIL (4.7-6.1); WBC 7.46 X1000 (4.8-10.8)
[2018-10-11] MEDS: HEPARIN SUBQ SCH ×3 (06:25→21:37)
[2018-10-11] MEDS: NORCO-5 PO PRN (06:28)
[2018-10-11 06:42] LABS: ALBUMIN 3.6 g/dL (3.5-5.0); CALCIUM 9.5 mg/dL (8.8-10.2); CREATININE 3.5 mg/dL (0.7-1.2); PHOSPHORUS 5.1 mg/dL (2.7-4.5); POTASSIUM 3.8 mmol/L (3.5-5.1)
[2018-10-11] MEDS: HUMULIN R SUBQ SCH ×4 (06:53→21:37)
--- NOTE | 2018-10-11 07:40 | Diag Imaging Result Doc PS360 ---
EXAM: CHEST-1 VIEW INDICATION: SOB TECHNIQUE: One view COMPARISON: 10/06/2018 FINDINGS: Right central line is in stable position. Mild pulmonary venous congestion continues to improve and has essentially normalized. No new consolidation is identified. Cardiac silhouette is stable. IMPRESSION: Continued improvement of mild pulmonary venous congestion. Electronically signed by Layo Soria 10/11/2018 7:38 AM
[2018-10-11] MEDS: DIFLUCAN PO SCH (08:38)
--- NOTE | 2018-10-11 13:57 | NEPHROLOGY PROGRESS NOTE ---
DATE: 10/11/2018 SUBJECTIVE: He is asleep but arousable. No distress. No complaints. OBJECTIVE: Vital Signs: Blood pressure 112/61, heart rate 65, respirations 16, afebrile. General: No acute distress. Skin: Warm and dry. Neck: Neck veins are not distended. Heart: Regular. Lungs: Equal. No crackles. Abdomen: Soft, nontender. Bowel sounds present. Extremities: No edema, clubbing or cyanosis. IMPRESSION: Acute kidney injury. Presumed acute tubular necrosis. Creatinine improved today for the first time. I encouraged him to increase his p.o. intake. Electrolytes and acid-base in target. cc: Isidro Velazco MD
[2018-10-11 15:20] LABS: URINE SOURCE VOIDED
[2018-10-11 15:25] LABS: BILIRUBIN URINE NEGATIVE (NEGATIVE); BLOOD URINE MODERATE (NEGATIVE); COLOR YELLOW; GLUCOSE URINE NEGATIVE (NEGATIVE); KETONE URINE NEGATIVE (NEGATIVE); LEUKOCYTES URINE LARGE (NEGATIVE); NITRITE URINE NEGATIVE (NEGATIVE); PH URINE 5.5; PROTEIN URINE 30 mg/dL (NEGATIVE); SP GRAVITY URINE 1.007; TURBIDITY URINE HAZY (CLEAR); UROBILINOGEN URINE NORMAL (NORMAL)
[2018-10-11 15:39] LABS: UR EPITHELIAL CELLS <10 /HPF (<10); URINE BACTERIA NEGATIVE /HPF; URINE RBC <10 /HPF (<10); URINE WBC TNTC /HPF (<10); URINE YEAST PRESENT
[2018-10-11 15:40] LABS: URINE CASTS NONE SEEN; URINE CRYSTALS NONE SEEN; URINE SMALL ROUND CELLS NONE SEEN
[2018-10-11] MEDS: PROTONIX IV SCH (16:15)
--- NOTE | 2018-10-11 16:40 | PROGRESS NOTE ---
DATE: 10/11/2018 SUBJECTIVE: Patient is doing well. No major complaints. He did participate with PT today. OBJECTIVE: Vital Signs: Blood pressure 117/77, heart rate 80, respiratory rate 18, temperature 94 degrees, satting 99% on room air. Cardiovascular: Regular rate and rhythm. Pulmonary: Bilateral breath sounds. Clear to auscultation. GI: Soft, nontender, nondistended. Bowel sounds were positive. LABORATORY DATA: White count is 7, hemoglobin and hematocrit 12 and 34, platelets 127. Creatinine 3.5. Urine showed a lot of white blood cells. PROBLEM LIST: 1. Acute kidney injury. Acute tubular necrosis. We are holding dialysis. His creatinine is stable. His urine output is decent, 850, 400, 1000; not great, but not zero. So, we will continue to monitor for long-term dialysis needs. 2. Dysphagia. He seems to be doing okay. He is on a proton pump inhibitor. 3. Severe aortic stenosis. We will continue to monitor. 4. Type 2 diabetes. Blood sugars have been still not well controlled. I did increase his Lantus I think last night, and I will continue to do so because I do not think he has got great control. DISPOSITION: We are looking at rehab options. He is participating in rehab at this point. We will continue to follow. cc: eDni Humphries MD
[2018-10-11] MEDS: NEURONTIN PO SCH (21:36)
[2018-10-11] MEDS: LANTUS INSULIN SUBQ SCH (21:37)
[2018-10-12] MEDS: DUONEB (A & A) INH SCH ×4 (04:00→22:10)
[2018-10-12 06:31] LABS: BASO# 0.02 X1000 (0.0-0.2); BASO% 0.3 % (0.0-0.8); EOS# 0.13 X1000 (0.0-0.7); EOS% 2.1 % (0.0-10.0); HEMATOCRIT 33.2 % (42.0-52.0); HEMOGLOBIN 11.5 g/dL (14.0-18.0); IMM GRAN# 0.06 X1000 (0.0-0.04); LYMPH# 1.76 X1000 (1.2-3.4); LYMPH% 28.9 % (20.5-51.1); MCH 32.1 PG (27-31); MCHC 34.6 g/dL (33-37); MCV 92.7 FL (81-99); MONO# 0.57 X1000 (0.11-0.59); MONO% 9.3 % (1.7-9.3); MPV 10.9 FL (7.4-10.4); NEUT# 3.56 X1000 (1.4-6.5); NEUT% 58.4 % (42.2-75.2); PLT 132 X1000 (130-400); RBC 3.58 XMIL (4.7-6.1); RDW 11.9 % (11.5-14.5)
[2018-10-12] MEDS: NORCO-5 PO PRN (06:37)
[2018-10-12] MEDS: HEPARIN SUBQ SCH ×3 (06:37→21:42)
[2018-10-12] MEDS: HUMULIN R SUBQ SCH ×4 (06:56→21:43)
[2018-10-12 07:08] LABS: ALBUMIN 3.6 g/dL (3.5-5.0); CALCIUM 9.1 mg/dL (8.8-10.2); CREATININE 3.6 mg/dL (0.7-1.2); PHOSPHORUS 5.7 mg/dL (2.7-4.5)
[2018-10-12] MEDS: DIFLUCAN PO SCH (09:37)
[2018-10-12] MEDS ORDERED: PROCTOFOAM TOP PRN (17:12)
[2018-10-12] MEDS: SODIUM CHLORIDE 0.9% INJ SCH (17:26)
[2018-10-12] MEDS: PROTONIX IV SCH (17:26)
--- NOTE | 2018-10-12 17:46 | PROGRESS NOTE ---
DATE: 10/12/2018 He is sitting up in bed. No major issues. He feels mostly his complaints are pain in his buttocks so in any case he seems to be otherwise not comfortable, mentating well all those kinds of things. Vital signs: Blood pressure is 121/69, heart rate of 82, respiratory rate 20, temperature 98.2, 96% on room air. Cardiovascular: Regular rate and rhythm. Pulmonary: Bilateral breath sounds. Clear to auscultation. GI: Was soft, nontender, nondistended. Bowel sounds are positive. LABORATORY DATA: Creatinine 3.6. Urine output is okay actually pretty good 1500, 1300 so doing well off of dialysis. 1. Acute kidney injury secondary to acute tubular necrosis, possibly due to rhabdo. Urine output is improved. Kidney function is stable holding on dialysis. Renal is following. 2. History of dysphagia, seems to be doing okay. 3. Severe aortic stenosis. Will need to resolve his issues before he is a candidate for surgery which will need pursued as an outpatient. 4. Type 2 diabetes. Blood sugars are still not great. We have had a couple in the below 200 range. DISPOSITION: Pending his clinical status but we are looking at [facility] rehab. We are waiting on options accordingly so will continue to follow but anticipate discharge soon once we can get that set up. cc: Deni Humphries MD
[2018-10-12] MEDS: LIDODERM TOP SCH (21:41)
[2018-10-12] MEDS: LANTUS INSULIN SUBQ SCH (21:42)
[2018-10-12] MEDS: NEURONTIN PO SCH (21:42)
[2018-10-13] MEDS: DUONEB (A & A) INH SCH ×4 (04:55→21:25)
[2018-10-13] MEDS: NORCO-5 PO PRN ×2 (05:37→14:41)
[2018-10-13] MEDS: PRILOSEC PO SCH ×2 (05:37→08:07)
[2018-10-13] MEDS: HEPARIN SUBQ SCH ×3 (05:37→21:34)
[2018-10-13] MEDS: HUMULIN R SUBQ SCH ×4 (07:09→23:36)
[2018-10-13 07:48] LABS: ALBUMIN 3.5 g/dL (3.5-5.0); CALCIUM 9.3 mg/dL (8.8-10.2); CREATININE 3.6 mg/dL (0.7-1.2); PHOSPHORUS 4.3 mg/dL (2.7-4.5); POTASSIUM 3.9 mmol/L (3.5-5.1)
--- NOTE | 2018-10-13 08:34 | PROGRESS NOTE ---
DATE: 10/13/2018 SUBJECTIVE: The patient is lying in bed, watching TV. He is in no distress. He has no complaints. OBJECTIVE: Vital Signs: Blood pressure is 124/71, with a heart rate of 65, respirations are 14, temperature is 97.5 degrees oral, with room air saturations 95% to 98%. Cardiovascular: Regular rate and rhythm. S1 and S2 appreciated. He does have a 1 to 2/6 systolic murmur. He has no lower extremity edema. Calves are nontender to palpation, with peripheral pulses palpable x4 extremities. Pulmonary: Breath sounds are clear with no increased work of breathing noted. Chest rises and falls symmetrically with respiration. Gastrointestinal: Abdomen is soft, nontender, nondistended, with bowel sounds in all 4 quadrants. Neurologic: He is alert and oriented x3. LABORATORY DATA: Sodium is 138, potassium 3.9, BUN 63, creatinine 3.6, with a glucose of 177. ASSESSMENT AND PLAN: 1. Acute kidney injury secondary to acute tubular necrosis, possibly due to rhabdomyolysis. Urine output remains stable. Dr. Velazco is following. 2. History of dysphagia. The patient states he is doing fine, eating without difficulty. 3. Severe aortic stenosis. Treatment will be handled on an outpatient basis. 4. Diabetes mellitus type 2. Blood sugars have been in the 180 to 270 range. Will continue with the current regimen. Dictated by RALF Hamilton for Deni Humphries MD cc: RALF Hamilton MD
[2018-10-13 10:49] LABS: URINE SOURCE CLEAN CATCH
[2018-10-13] MEDS ORDERED: MIRALAX PO PRN (10:49)
[2018-10-13 10:53] LABS: BILIRUBIN URINE NEGATIVE (NEGATIVE); BLOOD URINE MODERATE (NEGATIVE); COLOR YELLOW; GLUCOSE URINE NEGATIVE (NEGATIVE); KETONE URINE NEGATIVE (NEGATIVE); LEUKOCYTES URINE LARGE (NEGATIVE); NITRITE URINE NEGATIVE (NEGATIVE); PH URINE 5.5; PROTEIN URINE TRACE mg/dL (NEGATIVE); SP GRAVITY URINE 1.004; TURBIDITY URINE HAZY (CLEAR); UROBILINOGEN URINE NORMAL (NORMAL)
--- NOTE | 2018-10-13 10:53 | NEPHROLOGY PROGRESS NOTE ---
DATE: 10/13/2018 TIME SEEN: 0725. SUBJECTIVE: Mr. Severino is resting quietly in bed. He denies chest pain or increased work of breathing. OBJECTIVE: Most recent vital signs: Temperature 98.8 degrees, blood pressure 130/68, heart rate 84, respirations 18. He is on 2 L nasal cannula. Last recorded saturation was 95%. He has had 1520 in, 1425 out to void. General: This is a 68-year-old white male who is resting quietly in bed. He appears chronically ill. No acute distress. Skin: Warm and dry. HEENT: Normocephalic, atraumatic. Conjunctivae pale pink. He has ZEINA. Mucous membranes are dry. Neck: Supple. Trachea midline. No evidence of JVD. Cardiovascular: Regular rate and rhythm. He is without murmur or gallops. Lungs: Clear to auscultation bilaterally. Equal excursion on room air. Abdomen: Large, round, soft, nontender. Positive bowel sounds. Genitourinary: Not inspected. Adequate urine out to void. Extremities: No edema. No clubbing or cyanosis. Integumentary: Warm and dry without rashes or lesions. LABORATORY DATA: Sodium 138, potassium 3.9, chloride 100, CO2 of 25, BUN 63, creatinine 3.6, glucose 177, anion gap of 13, calcium 9.3, phosphorus 4.3, albumin 3.5, with a previous hemoglobin of 11.5. ASSESSMENT AND PLAN: 1. Acute kidney injury. The patient's creatinine has stabilized at the 3.6 range over the last 48 to 72 hours. He has had adequate urine output documented. No indications for intervention. We will continue to monitor. 2. Urinary tract infection with funguria. The patient has been treated also for Ivania. We will recheck a urinalysis today with possible reflux culture. 3. Electrolytes, acid-base balance, and anemia. These are all in target. I would like to thank you for allowing us to follow with this patient. Dictated by RALF Pope for Isidro Velazco MD Face to face encounter, data reviewed, discussed with Nitin Hernandez on 10/13/18. I agree with the above assessment and plan of care. cc: RALF Pope MD [facility]
[2018-10-13 11:04] LABS: UR EPITHELIAL CELLS <10 /HPF (<10); URINE BACTERIA NEGATIVE /HPF; URINE RBC <10 /HPF (<10); URINE WBC TNTC /HPF (<10)
[2018-10-13 11:05] LABS: URINE YEAST PRESENT
[2018-10-13] MEDS: LIDODERM TOP SCH (12:27)
[2018-10-13] MEDS: DIFLUCAN PO SCH (12:27)
--- NOTE | 2018-10-13 12:51 | GASTROENTEROLOGY PROGRESS NOTE ---
DATE: 10/13/2018 SUBJECTIVE: The patient was lying in bed in no acute distress. He denies any trouble eating and no reported dysphagia. He had a barium swallow the last week that did not show any evidence of aspiration. OBJECTIVE: Vital Signs: Temperature 98.1 degrees, pulse 70, respirations 22, blood pressure 119/78. General: Patient is awake, alert, no acute distress. LABORATORY: Hematology WBC 6.10, hemoglobin 11.5, hematocrit 33.2, MCV 92.7, platelet 132,000. Chemistry sodium 138, potassium 3.9, chloride 100, CO2 25, BUN 63, creatinine 3.6, glucose 177. ASSESSMENT AND PLAN: 1. Recent encephalopathy with history of alcohol abuse. Patient is currently awake and alert and oriented. 2. Acute tubular necrosis following with Nephrology. 3. Dysphagia. EGD was attempted but anesthesiology decided he was too high risk for sedation and procedure. A barium swallow was done instead but showed no evidence of aspiration or active reflux. He continues on PPI. 4. Severe aortic stenosis. Patient has been seen by a bookkeeping manager and recommends workup as an outpatient. PLAN: Continue PPI. Continue strict anti-reflux measures. Recommend he be sitting up in a chair when eating. Eat smaller bites, chew food well, drink between bites. I believe there are plans for him to go to a rehab facility after discharge. Recommend patient follow up with us as an outpatient. I have given him our contact information to call and make an appointment. We will continue to follow during his hospital course. Further plans to be made as needed. I have discussed this case with Dr. Schaffer. Dictated by RALF Esquivel for Zane Schaffer MD cc: RALF Madrid MD
--- NOTE | 2018-10-13 17:11 | PROGRESS NOTE ---
DATE: 10/13/2018 ADDENDUM: The patient is doing well. No major complaints. We are waiting on rehab situation, also resolution of his kidney dysfunction, but so far he seems to be doing okay. Urine output is good and plan to discharge him to rehab soon, so we will continue to follow. Hopefully we can get some official information soon. cc: Deni Humphries MD
[2018-10-13] MEDS: NEURONTIN PO SCH (21:34)
[2018-10-13] MEDS: LANTUS INSULIN SUBQ SCH (21:34)
[2018-10-14] MEDS: DUONEB (A & A) INH SCH ×4 (05:18→21:45)
[2018-10-14] MEDS: HEPARIN SUBQ SCH ×3 (05:53→22:31)
[2018-10-14] MEDS: PRILOSEC PO SCH ×2 (05:53→20:46)
[2018-10-14] MEDS: HUMULIN R SUBQ SCH ×4 (07:36→22:32)
[2018-10-14 08:23] LABS: ALBUMIN 3.9 g/dL (3.5-5.0); CALCIUM 9.3 mg/dL (8.8-10.2); PHOSPHORUS 4.3 mg/dL (2.7-4.5); POTASSIUM 4.4 mmol/L (3.5-5.1)
--- NOTE | 2018-10-14 08:55 | NEPHROLOGY PROGRESS NOTE ---
DATE: 10/14/2018 TIME SEEN: 0705. SUBJECTIVE: Mr. Severino is resting quietly in bed, states that he has not been sleeping well. Denies any pain or increased work of breathing. OBJECTIVE: Vitals: His most recent vital signs, temperature 98, blood pressure 130/68, heart rate 65, respirations 20. He is on room air. Last recorded saturation 100%. General: This is a 68-year-old white male resting quietly in bed. Skin: Warm and dry. HEENT: Normocephalic, atraumatic. Conjunctiva is pale pink. He has ZEINA. Mucous membranes are dry. Neck: Supple, trachea midline. No evidence of JVD. Cardiovascular: Regular rate and rhythm. He is without murmur or gallop. Lungs: Clear to auscultation bilaterally. Equal excursion on room air. Abdomen: Large, round, soft, nontender. Positive bowel sounds. Genitourinary: Not inspected. Patient has been voiding adequate amount. Extremities: Without edema. No clubbing or cyanosis. Neurological: Alert and oriented x3. Integumentary: Warm and dry without rashes or lesions. INPUT AND OUTPUT: He has had 240 in, 900 out to void. The patient states yellow color. LABORATORIES: These are currently pending this a.m. Previous hemoglobin of 11.5. Previous potassium 3.9, BUN 63, creatinine of 3.6, which has been stable for approximately 72 hours. Labs currently pending. Urinalysis completed yesterday indicates hazy color, trace protein, moderate urine blood, large leukocytes, WBCs too numerous to count, RBCs are less than 10. We will repeat a CK today to evaluate and determine the blood in his urine. ASSESSMENT AND PLAN: 1. Acute kidney injury. Patient's BUN and creatinine have continued to stabilize. Labs are currently pending this a.m. He has had adequate urine output documented. We will continue to monitor. No indications for intervention. 2. Urinary tract infection with funguria. The patient's urinalysis continues to show positive yeast, positive leukocytes, positive white blood cell count with positive blood which is questionable with a negative RBC. 3. Wonder about rhabdomyolysis given dipstick (+) for heme without RBC's in his urine. We will recheck a CK today. 4. Electrolytes, acid-base balance and anemia. These have all remained stable. I would like to thank you for allowing us to follow with this patient. Dictated by RALF Pope for Isidro Velazco MD Face to face encounter, data reviewed, discussed with Nitin Hernandez on 10/14/18. I agree with the above assessment and plan of care. cc: RALF Pope MD [facility]
[2018-10-14] MEDS: LIDODERM TOP SCH (10:16)
[2018-10-14] MEDS: DIFLUCAN PO SCH (10:16)
--- NOTE | 2018-10-14 13:29 | GASTROENTEROLOGY PROGRESS NOTE ---
DATE: 10/14/2018 SUBJECTIVE: Patient currently denies complaints. He denies trouble with dysphagia. A barium swallow last week did not show evidence of aspiration. He is tolerating a diabetic diet. OBJECTIVE: Vital Signs: Temperature 98.3 degrees, pulse 65, respirations 14, blood pressure 119/61. General: The patient is awake and alert, in no acute distress. LABORATORY DATA: Hematology: WBC 6.10, hemoglobin 11.5, hematocrit 33.2, platelet 132,000. Chemistry: Sodium 140, potassium 4.4, chloride 101, CO2 24, BUN 58, creatinine 3.0, glucose 149. ASSESSMENT AND PLAN: 1. Recent encephalopathy with history of alcohol abuse. Patient is currently awake in no acute distress. 2. Acute renal failure. Following with Nephrology. His BUN and creatinine are improving. 3. Dysphagia. Seems to have improved. Patient is tolerating his diet. A barium swallow did not show evidence of aspiration. An EGD was attempted but Anesthesiology felt it was too high risk for sedation due to his aortic stenosis. 4. Severe aortic stenosis. Patient has been seen by Cardiology and recommends workup as an outpatient. PLAN: Continue PPI. Follow strict antireflux measures, eat small bites, chew food well, drink between bites, remain upright after eating. I believe there were plans for him to go to rehab. Since his GI symptoms have resolved, GI will sign off and please re-consult GI if needed. I have recommended patient follow up as an outpatient. I have given him contact information to call and make an office visit. I have discussed this case with Dr. Schaffer. Dictated by RALF Esquivel for Zane Schaffer MD cc: RALF Madrid MD
--- NOTE | 2018-10-14 16:25 | PROGRESS NOTE ---
DATE: 10/14/2018 SUBJECTIVE: Patient has no major complaints. He is very pleasant. OBJECTIVE: Blood pressure 121/78, heart rate of 78, respiratory rate 18, and temperature 98.2 degrees.Cardiovascular: Regular rate and rhythm. Pulmonary: Bilateral breath sounds clear to auscultation. GI: Soft, nontender, and nondistended. Bowel sounds were positive. Extremities: No clubbing or cyanosis. He looks pretty well. LABORATORY DATA: Creatinine is at 3 and BUN of 58. He seems to be doing okay. PROBLEM LIST: 1. Acute kidney injury due to ATN rhabdo. He seems to be doing well. No major complaints. 2. Dysphagia. He is on PPI. 3. Severe aortic stenosis. We will continue to follow. 4. Type 2 diabetes. Blood sugars are still not under control but better. He had several that were at least below 200. We will titrate up on his Lantus and follow closely. DISPOSITION: Pending his clinical status, we are looking for rehab bed. [facility] was not able to assist us with care. I will continue to follow. cc: Deni Humphries MD
[2018-10-14 19:18] LABS: URINE SOURCE VOIDED
[2018-10-14 19:23] LABS: BILIRUBIN URINE NEGATIVE (NEGATIVE); BLOOD URINE MODERATE (NEGATIVE); COLOR YELLOW; GLUCOSE URINE TRACE mg/dL (NEGATIVE); KETONE URINE NEGATIVE (NEGATIVE); LEUKOCYTES URINE LARGE (NEGATIVE); NITRITE URINE NEGATIVE (NEGATIVE); PROTEIN URINE TRACE mg/dL (NEGATIVE); SP GRAVITY URINE 1.007; TURBIDITY URINE HAZY (CLEAR); UROBILINOGEN URINE NORMAL (NORMAL)
[2018-10-14 19:25] LABS: UR EPITHELIAL CELLS <10 /HPF (<10); URINE BACTERIA NEGATIVE /HPF; URINE RBC <10 /HPF (<10); URINE WBC TNTC /HPF (<10)
[2018-10-14 19:33] LABS: URINE YEAST PRESENT
[2018-10-14] MEDS: NORCO-5 PO PRN (19:38)
[2018-10-14] MEDS: NEURONTIN PO SCH (22:30)
[2018-10-14] MEDS: LANTUS INSULIN SUBQ SCH (22:31)
[2018-10-15] MEDS: HEPARIN SUBQ SCH ×4 (00:37→23:51)
[2018-10-15] MEDS: DUONEB (A & A) INH SCH ×5 (03:15→21:17)
[2018-10-15] MEDS ORDERED: PNEUMOVAX 23 IM ONE (03:30)
[2018-10-15 05:46] LABS: BASO# 0.02 X1000 (0.0-0.2); BASO% 0.3 % (0.0-0.8); EOS# 0.15 X1000 (0.0-0.7); EOS% 2.5 % (0.0-10.0); HEMATOCRIT 32.3 % (42.0-52.0); IMM GRAN# 0.04 X1000 (0.0-0.04); IMM GRAN% 0.7 % (0.0-0.5); LYMPH# 1.86 X1000 (1.2-3.4); LYMPH% 31.3 % (20.5-51.1); MCHC 34.1 g/dL (33-37); MCV 93.9 FL (81-99); MONO# 0.73 X1000 (0.11-0.59); MONO% 12.3 % (1.7-9.3); MPV 10.7 FL (7.4-10.4); NEUT# 3.14 X1000 (1.4-6.5); NEUT% 52.9 % (42.2-75.2); PLT 147 X1000 (130-400); RBC 3.44 XMIL (4.7-6.1); RDW 12.2 % (11.5-14.5); WBC 5.94 X1000 (4.8-10.8)
[2018-10-15] MEDS: HUMULIN R SUBQ SCH ×4 (06:53→21:10)
--- NOTE | 2018-10-15 06:55 | Diag Imaging Result Doc PS360 ---
CHEST-1 VIEW - 10/15/2018 INDICATION: SOB COMPARISON: 10/11/2018 FINDINGS: Stable right dialysis catheter in good position. The lungs are clear. Heart size is normal. No pneumothorax or pleural effusion. IMPRESSION: No acute disease. Electronically signed by Blas Grewal 10/15/2018 6:53 AM
[2018-10-15 07:06] LABS: ALBUMIN 3.7 g/dL (3.5-5.0); CREATININE 2.6 mg/dL (0.7-1.2); PHOSPHORUS 4.3 mg/dL (2.7-4.5); POTASSIUM 4.4 mmol/L (3.5-5.1)
[2018-10-15] MEDS: PRILOSEC PO SCH (07:07)
--- NOTE | 2018-10-15 07:53 | NEPHROLOGY PROGRESS NOTE ---
DATE: 10/15/2018 DATE AND TIME OF EXAM: 10/15/18 at 0630 hours. SUBJECTIVE: Mr. Domingo is resting quietly in bed; head of the bed is elevated. States that he is feeling better. OBJECTIVE: His most recent vital signs: Temperature 97.7, blood pressure 112/67, heart rate 67, respirations 16. He is on room air. Last recorded saturation is 99%. He has had 1120 in; 675 out to void. General: This is a 68-year-old white male resting quietly in bed. He appears chronically ill, no acute distress. Skin: Warm and dry. HEENT: Normocephalic, atraumatic. Conjunctiva is pale, pink. He has ZEINA. Mucous membranes are dry. Neck: Supple. Trachea midline. No evidence of JVD. Cardiovascular: Regular rate and rhythm. He is without murmur or gallop. Lungs: Clear to auscultation bilaterally. Equal excursion on room air. Abdomen: Large, round, soft, nontender. Positive bowel sounds. Genitourinary: Not inspected. Patient is voiding adequate amount recorded. Extremities: Have no edema, no clubbing or cyanosis. Neurological: Alert and oriented x3. Integumentary: Warm and dry without rashes or lesions. LABS: This a.m. sodium 142, potassium 4.4, chloride 105, CO2 24. BUN 60, creatinine 2.6, glucose is 96. His anion gap is 13, calcium is 9, phosphorus 4.3, albumin 3.7. White count 5.94, hemoglobin 11, hematocrit 32.3 with a platelet count of 147. ASSESSMENT AND PLAN: 1. Acute kidney injury. Patient's BUN and creatinine continue to slowly respond and improve. Adequate urine output documented. No indications for intervention. 2. Urinary tract infection with funguria with Ivania. The patient remains on renally-dosed antibiotics. 3. Previous history of acute rhabdomyolysis. Patient's repeat CK is 117. He does continue with red blood cells in his urine. 4. Electrolytes, acid-base balance and anemia. These are all stable. I would like to thank you for allowing us to follow with this patient. Dictated by RALF Pope for Isidro Velazco MD Face to face encounter, data reviewed, discussed with Nitin Hernandez on 10/15/18. I agree with the above assessment and plan of care. cc: RALF Pope MD [facility]
[2018-10-15] MEDS: DIFLUCAN PO SCH (09:03)
[2018-10-15] MEDS: LIDODERM TOP SCH (09:03)
--- NOTE | 2018-10-15 15:44 | PROGRESS NOTE ---
DATE: 10/15/2018 INTERVAL HISTORY: The patient with no acute events overnight. No new complaints. Urine output reasonable. Eating and drinking well. Mental status stable. REVIEW OF SYSTEMS: Twelve point review of systems negative, except as per interval history. LABS: WBC 5.9, hemoglobin 11.0, hematocrit 32.3, platelets 147. Sodium 142, potassium 4.4, chloride 105, bicarbonate 24. BUN 60, creatinine 2.6, glucose 148 to 323. VITALS: T-max 98.3 degrees, pulse 65, respirations 18, blood pressure 112/67, O2 saturation 95% on room air. PHYSICAL EXAMINATION: General: No acute distress. Vitals: As above. HEENT: Normocephalic, atraumatic. Moist mucous membranes. Neck: No cervical adenopathy. Cardiovascular: Regular rate and rhythm. Left upper sternal border murmur, stable. Pulmonary: Clear to auscultation bilaterally. Abdomen: Soft, nontender, nondistended. Bowel sounds positive. Extremities: Peripheral pulses intact. No clubbing or cyanosis. Neurologic: Cranial nerves grossly intact. No focal deficits identified. Psychiatric: Normal mood and affect. Awake, alert, oriented x3. Skin: No new rashes or lesions identified. ASSESSMENT AND PLAN: 1. Acute kidney injury due to acute tubular necrosis and rhabdomyolysis. Baseline unknown, but kidney function continuing to improve. Urine output and oral intake adequate. Continue to monitor. 2. Dysphagia, largely resolved. Continue proton pump inhibitor. 3. Severe aortic stenosis. Cardiology recommending further outpatient followup. 4. Diabetes. Reasonable morning sugar. Some elevations yesterday afternoon. We will see how he does today. May consider slightly increasing Lantus if he continues to have intermittent elevations. Overall control does appear to be slightly improved since increasing Lantus yesterday. 5. Metabolic encephalopathy, now resolved. 6. Alcohol abuse. No further signs of withdrawal. 7. Disposition: Anticipates patient's discharge to assisted facility whenever bed is available.
[2018-10-15] MEDS: NEURONTIN PO SCH (20:20)
[2018-10-15] MEDS: NORCO-5 PO PRN (20:20)
[2018-10-15] MEDS ORDERED: INSULIN PEN NEEDLES ONE (20:21)
[2018-10-15] MEDS: LANTUS INSULIN SUBQ SCH (20:33)
[2018-10-16] MEDS: DUONEB (A & A) INH SCH ×3 (03:32→09:14)
[2018-10-16] MEDS: PRILOSEC PO SCH (06:31)
[2018-10-16 06:46] LABS: ALBUMIN 3.4 g/dL (3.5-5.0); CALCIUM 9.3 mg/dL (8.8-10.2); CREATININE 2.3 mg/dL (0.7-1.2); PHOSPHORUS 3.6 mg/dL (2.7-4.5); POTASSIUM 4.3 mmol/L (3.5-5.1)
[2018-10-16] MEDS: HUMULIN R SUBQ SCH ×4 (07:00→21:23)
[2018-10-16] MEDS: HEPARIN SUBQ SCH ×2 (08:04→16:53)
[2018-10-16] MEDS ORDERED: TYLENOL PO PRN (10:35)
--- NOTE | 2018-10-16 11:01 | PROGRESS NOTE ---
DATE: 10/16/2018 INTERVAL HISTORY: No acute overnight events. His vitals were unremarkable. He uses BiPAP at nighttime. SUBJECTIVE: He denies any chest pain, shortness of breath. He states he is making adequate amount of urine. He has been having good bowel movements. No other complaints. We discussed about his hospital course, need for outpatient followup with providers, and I answered all of his questions. OBJECTIVE: Current Vital Signs: Temperature of 98.5 degrees, pulse 67, respiratory rate 16, blood pressure 142/78, saturating 99% on room air. Input and output suggests he had 1.4 L of urine output in the last 24 hours. General: Morbidly obese man, not in any acute distress. HEENT: Oral cavity is moist. Lungs: Air entry bilaterally equal. No wheeze, rhonchi, crackles. Cardiovascular: S1, S2 normal. He does have a very prominent systolic murmur affecting mitral region as well as second intercostal space in parasternal region. I could not appreciate any radiation. Abdomen: Obese, soft, nontender. Extremities: Bilateral lower extremity edema is present. Neurologic: He is alert and oriented x3. LABORATORY DATA: No CBC today. BMP suggestive of persistently dropping BUN and creatinine. MICROBIOLOGY: No new microbiological data. IMAGING: No new imaging today. Chest x-ray performed yesterday for shortness of breath did not have any acute disease. ASSESSMENT AND PLAN: 1. Acute kidney injury, likely due to acute tubular necrosis because of rhabdomyolysis requiring intermittent hemodialysis, now improving. He is not on hemodialysis anymore, with adequate urine output and oral intake. Continue to monitor kidney function and outpatient BMP as well. 2. Dysphagia on presentation, thought to be related to altered mental status. Now, it has resolved. Continue proton pump inhibitors. Previously, he could not undergo esophagogastroduodenoscopy because of his severe aortic stenosis. Plan is outpatient Gastroenterology followup. 3. Severe aortic stenosis with only [id number] left ventricular hypertrophy without any left ventricular systolic dysfunction, with ejection fraction of 55% to 60%. He should follow up outpatient Cardiology. No need of intervention at the moment. 4. Diabetes mellitus type 2. Continue insulin at current dose. He would require discharge on insulin considering his poor kidney function until his kidney function resolves, at which point oral hypoglycemic would be considered. 5. Hypoxic hypercapnic respiratory failure, acute during hospital admission related to morbid obesity as well as volume overload in the setting of kidney dysfunction, now has resolved. The patient uses nighttime bilevel positive airway pressure. He should follow up outpatient for sleep study, and continue to use nighttime bilevel positive airway pressure for now. 6. His other issues, including metabolic encephalopathy because of uremia and alcohol withdrawal have resolved, and I will continue his home medication of gabapentin for diabetic neuropathy. 7. Disposition. The patient would likely go to [facility] tomorrow. Plan of care was discussed with him. All of his questions have been answered. cc: Geovanny Rai MD
--- NOTE | 2018-10-16 11:35 | INFECTIOUS DISEASE CONSULT REP ---
DATE: 10/16/2018 CONCLUSION: Dr. Velazco has asked me to see the patient and evaluate his funguria. RECOMMENDATIONS: The patient had asymptomatic funguria. He did not have any dysuria or flank pain or suprapubic pain. He has been started on fluconazole, and his latest urine culture is sterile. Because the patient's funguria initially was asymptomatic, he does not need treatment for the funguria. He has been already getting fluconazole, and his latest urine cultures negative. I think that the fluconazole should be discontinued, and that is what I have done, the main reason being that asymptomatic infections of the urinary tract, whether it be due to fungus or bacteria, in general do not require treatment, and this patient's case the funguria was asymptomatic and did not seem to be causing any particular problem. PAST MEDICAL HISTORY/REVIEW OF SYSTEMS: Eyes and ears: He denies having trouble seeing or hearing. Neck: No stiffness. Respiratory: No cough. The patient did say that when he was at home, he fell, and for a day or 2, he was dyspneic but that has cleared. Genitourinary: See Present Illness. Gastrointestinal: No nausea or vomiting. The patient did say that he went for 6 weeks without having a bowel movement. Bones, joints, muscles: No joint swelling or muscle aching. Endocrine: The patient is a diabetic, but he does not have thyroid problems. Neurologic: The patient does not have seizures. He does not have a decreased sensation to touch. PRESENT ILLNESS: The patient told me that he initially came in the hospital because he fell at home. He said he had been dyspneic for a few days, but that is cleared. He further told me that he had not had a bowel movement 6 weeks as mentioned above. He did not have dysuria, flank pain, or suprapubic pain. Laboratory studies thus far show a CBC with a white count of 5940, hemoglobin 11, and platelet count 147,000. Creatinine is 2.3, GFR is 29. Urinalysis showed white cells, but no bacteria. Urine culture on October 01 grew yeast. The latest urine culture drawn on October 13 showed no infection. Blood cultures also are negative. PREVIOUS HOSPITALIZATIONS AND OPERATIONS: Patient has had bilateral knee surgery. MEDICAL DISEASES: Positive for obesity, diabetes mellitus, hypertension, and hyperlipidemia. INFECTIOUS DISEASE HISTORY: Negative for pneumonia and UTI. FAMILY HISTORY: Positive for diabetes mellitus and hypertension. SOCIAL HISTORY: [place] He is . He lives alone. He has a dog as a pet. ALLERGIES: He is allergic to amoxicillin, manifested by angioedema. MEDICATIONS TAKEN AT HOME: Include Lipitor, gabapentin, lisinopril, and Antivert. PHYSICAL EXAMINATION: Vital Signs: Temperature is 97.8 degrees, pulse 71, respirations 18, blood pressure 99/69. Height/weight: The patient is 5 feet 11 inches tall and weighs 268 pounds. General: This is an obese, elderly male. He is in no acute distress. Head, Eyes, Ears, Nose, and Throat: He can hear my spoken words and see near objects. There are no white patches on his tongue. Neck: He does not have any pain when he moves his neck. Lungs: Clear to auscultation. Cardiovascular: Heart tones were somewhat distant, but they appeared to be regular. Abdomen: The abdomen is soft and tender, and also there was no flank tenderness, either. Neurologic: The patient is awake. He seemed to have a decreased memory as regarding his medical illnesses. His sensation is intact to touch. He can move all of his extremities. There is no tremor. Integument: No rash noted. I am signing off the patient's care but I am available to see the patient on a prn basis. Thank you for the consult. cc: Devonte Penny MD [facility]
[2018-10-16] MEDS ORDERED: XYLOCAINE-MPF 2% ONE (12:03)
[2018-10-16] MEDS ORDERED: ROBINUL ONE (12:03)
[2018-10-16] MEDS ORDERED: DIPRIVAN 1% ONE (12:04)
[2018-10-16] MEDS ORDERED: XYLOCAINE 1%/EPI 1:100,000 ONE (12:06)
[2018-10-16] MEDS: LIDODERM TOP SCH (13:22)
[2018-10-16] MEDS ORDERED: ALBUTEROL NEB INH PRN (13:44)
--- NOTE | 2018-10-16 14:27 | GENERAL SURGERY PROGRESS NOTE ---
DATE: 10/16/2018 Mr. Severino no longer needs his tunneled catheter, and I have been asked to remove it. He has been n.p.o. He is in agreement and agrees with planning to proceed with removal of the catheter so we will do it this afternoon. cc: Warren Granda MD
--- NOTE | 2018-10-16 14:28 | NEPHROLOGY PROGRESS NOTE ---
DATE: 10/16/2018 DATE AND TIME OF EXAM: 10/16/2018 at 0650 hours. SUBJECTIVE: Mr. Severino is resting quietly in bed. He is supine. He denies any increased work of breathing or chest pain. OBJECTIVE: Vital Signs: Temperature 97.8, blood pressure 99/69, heart rate 71, respirations 18. He is on room air. Last recorded saturation 95%. He has had 500 in; 1370 out. He is currently n.p.o. General: On physical examination, this is a 68-year-old white male resting quietly in bed in no acute distress. Skin: Warm and dry. HEENT: Normocephalic, atraumatic. Conjunctiva is pale. He has ZEINA. Mucous membranes are dry. Neck: Supple. Trachea midline. No evidence of JVD. Cardiovascular: Regular rate and rhythm. He is without murmur or gallop. Lungs: Clear to auscultation bilaterally. Equal excursion on room air. Abdomen: Soft, nontender. Positive bowel sounds. Genitourinary: Patient has been voiding adequate amounts. Extremities: Have trace edema. No clubbing or cyanosis. Neurological: Alert and oriented x3. LABS: Sodium 137, potassium 4.3, chloride 104, CO2 22. BUN 52, creatinine 2.3, glucose 152. His anion gap is 11, calcium 9.3, phosphorus is 3.6, albumin is 3.4. Previous hemoglobin is 11. ASSESSMENT AND PLAN: 1. Acute kidney injury. Patient's BUN and creatinine have continued to slowly improve. Presumably this is more than likely acute tubular necrosis. White cells remain in his urine secondary to his continued funguria. We will consult Dr. Penny for assistance with management. Due to continued improvement of his renal status, we will request Dr. Granda for removal of his dialysis tunnel catheter on his right chest wall. The patient has not required dialysis in a week. 2. Electrolytes, acid-base balance and anemia; these are all acceptable. I would like to thank you for allowing us to follow with this patient. Dictated by RALF Pope for Isidro Velazco MD Face to face encounter, data reviewed, discussed with Nitin Hernandez on 10/16/18. I agree with the above assessment and plan of care. cc: BethRALF Hartley MD [facility]
--- NOTE | 2018-10-16 14:51 | OPERATIVE NOTE ---
PROCEDURE DATE: 10/16/2018 PROCEDURE PERFORMED: Removal of tunneled dialysis catheter. SURGEON: Warren Granda MD. DIRECTOR OF PRECLINICAL RESEARCH: Viktoriya. PREOPERATIVE DIAGNOSIS: Resolution of acute kidney injury. POSTOPERATIVE DIAGNOSIS: Resolution of acute kidney injury. INDICATIONS: This is a 68-year-old who had transient dialysis due to acute kidney injury but now needs it no longer. DESCRIPTION OF PROCEDURE: After satisfactory IV sedation was accomplished, the right upper anterior chest and neck were prepped and draped in a sterile fashion. Local anesthesia achieved with 1% lidocaine with epinephrine over the cuff, down to the exit site. We then incised the skin, freed the cuff, delivered the catheter without any problem. Hemostasis was satisfactory. We closed the skin with a 4-0 Polysorb subcuticular stitch. Telfa and a sterile OpSite were applied. He tolerated it well. Was sent to the recovery room in satisfactory condition. cc: Warren Granda MD
[2018-10-16] MEDS: NEURONTIN PO SCH (21:23)
[2018-10-16] MEDS: LANTUS INSULIN SUBQ SCH (21:23)
[2018-10-17] MEDS: HEPARIN SUBQ SCH ×2 (02:15→07:51)
[2018-10-17 07:29] VITALS: BP 130/72
[2018-10-17] MEDS: PRILOSEC PO SCH (07:52)
[2018-10-17] MEDS: LIDODERM TOP SCH ×2 (07:53→08:23)
[2018-10-17] MEDS: HUMULIN R SUBQ SCH ×2 (07:56→12:32)
[2018-10-17] MEDS: DUONEB (A & A) INH SCH (08:39)
--- NOTE | 2018-10-17 12:35 | DISCHARGE SUMMARY ---
ADMISSION DATE: 09/26/2018 DISCHARGE DATE: 10/17/2018 [facility] DISCHARGE DIET: Renal diet with Krystal mitchell. CONSULTATION DURING HOSPITALIZATION: 1. Nephrology for acute kidney injury, Dr. Velazco. 2. Cardiology for severe aortic stenosis, Dr. Wilson. 3. Gastroenterology for dysphagia, Dr. Schaffer. 4. Pulmonology, Dr. Hamm. 5. Neurology, Dr. De Leon. 6. Infectious disease, Dr. Penny. 7. Surgeon for dialysis catheter placement and removal, Dr. Granda. DISCHARGE DIAGNOSES: 1. Acute kidney injury likely due to acute tubular necrosis because of rhabdomyolysis requiring intermittent hemodialysis and off hemodialysis at the time of discharge. 2. Dysphagia related to altered mental status, which improved. 3. Severe aortic stenosis with mild to moderate left ventricular hypertrophy. 4. Acute hypoxic hypercarbic respiratory failure. 5. Volume overload in the setting of kidney dysfunction. 6. Metabolic encephalopathy because of uremia. 7. Alcohol withdrawal with delirium tremens. 8. Suspected obstructive sleep apnea. OTHER DIAGNOSES: 1. Chronic gastroesophageal reflux disease. 2. Constipation. 3. Now insulin-dependent diabetes mellitus. 4. Hyperlipidemia. 5. Diabetic neuropathy. 6. Essential hypertension. DISCHARGE MEDICATIONS: 1. Gabapentin 300 mg at nighttime. 2. Albuterol 2.5 mg inhaled every 6 hours as needed for shortness of breath. 3. MiraLAX 17 g p.o. b.i.d. as needed for constipation. 4. Omeprazole 40 mg daily at 7 a.m. 5. Acetaminophen 650 mg p.o. q. 6 hours p.r.n. for pain. 6. Insulin glargine 45 units at nighttime. 7. Insulin Aspart sliding scale for hyperglycemia with meals and at nighttime. VITALS: At the time of discharge, temperature 98.1 degrees, pulse 82, respiratory rate 16, blood pressure 130/72, saturating 97% on room air. PHYSICAL EXAMINATION: General: The patient is alert and oriented, does not appear in any acute distress. HEENT: Oral cavity is moist. Morbidly obese. No pallor, cyanosis, clubbing or icterus. Lungs: Air entry bilaterally equal. No wheeze, rhonchi, crackles. Cardiovascular: S1, S2 normal. Prominent systolic murmur affecting mitral region, as well as second intercostal space without radiation. Abdomen: Obese, soft, nontender. Extremities: Mild bilateral lower extremity edema. Neurologic: Alert and oriented x3. SIGNIFICANT LABS: At the time of discharge, WBC 5.9, hemoglobin 11, platelet count 147,000, potassium 4.3, BUN 52, creatinine 2.3 with GFR of 29, blood sugar 164. SIGNIFICANT MICROBIOLOGY: During hospital admission, his blood cultures did not have any growth. Urine culture had only shown yeast. Repeat urine culture did not have any growth on October 13. SIGNIFICANT IMAGING: During hospitalization, chest x-ray on admission had cardiomegaly without any evidence of acute disease. Head CT after fall had no evidence of acute intracranial disease. Hip/pelvis x-ray did not have any acute osseous abnormality. Extremity arterial study had detected waveform appears to be intact to level of toes bilaterally without any obvious peripheral vascular disease. Renal ultrasound had detected unremarkable kidneys without evidence of hydronephrosis. Abdominal ultrasound had detected hepatic steatosis and/or cirrhosis with borderline splenomegaly without any evidence of ascites. Extremity venous study on September 28 did not detect any left upper extremity DVT. Brain MRI on September 29 did not have any acute abnormality, although it did have motion abnormalities. Upper GI barium swallow on October 09 did not have any acute abnormality. Chest x-ray on October 15 did not have any acute disease. There was no pneumothorax or pleural effusion. HOSPITAL COURSE SUMMARY: Mr. Severino is a 68-year-old man, who was admitted on September 26 when he came in with chief complaints of weakness and recent falls of about 2 times. When he came to the emergency room, he complained of falling 2 times in the past 3 months and he has been feeling very weak. He was sitting in the shower on the Ce[employer] chair, and then suddenly collapsed and fell on the bathroom floor, though he did not hit his head and did not have loss of consciousness. In the emergency room, he was hemodynamically stable, however the lab analysis had suggested BUN of 64 and creatinine of 8.2, which was new for him. So, he was admitted inside the hospital for management of his acute kidney injury. During workup of his acute kidney injury, he was also found to have elevated CPK, and it was thought that rhabdomyolysis could have contributed to it. The patient was treated with intravenous fluids, though he was not making enough urine, and uremia was causing acute encephalopathy. So, a hemodialysis catheter was introduced and he started receiving intermittent hemodialysis. Later on during hospital course, his kidney function started recurring with a progressive and gradual improvement in BUN and creatinine, and improvement in his mental status. So, eventually his hemodialysis catheter was removed. At the time of discharge, his kidney function is still recovering, and he is no longer requiring hemodialysis. During hospital admission, he also developed acute hypoxic hypercapnic respiratory failure, likely in the setting of kidney failure and volume overload requiring BiPAP. At the time of discharge, he appeared hemodynamically stable and breathing well on room air. He was advised to follow up outpatient sleep study to rule out any obstructive sleep apnea. He was detected to have severe aortic stenosis without any left ventricular systolic dysfunction, and Cardiology team was consulted who had recommended outpatient management. At the time of admission, he complained of dysphagia. However, he could not undergo esophagogastroduodenoscopy considering his high risk of anesthesia considering his aortic stenosis. Later on, as his acute encephalopathy resolved, his dysphagia had also improved, and outpatient Gastroenterology followup was recommended. DISCHARGE INSTRUCTIONS: At the time of discharge, patient instructed to follow up with kidney doctor as an outpatient to keep a close eye over kidney function; heart doctor as an outpatient for follow-up of aortic stenosis; GI doctor to see if he would need EGD in the future; lung doctor for sleep study. TIME SPENT: More than 30 minutes were spent in discharging this patient. All of his questions were answered satisfactorily. cc: Geovanny Rai MD
--- NOTE | 2018-10-20 06:00 | NEPHROLOGY PROGRESS NOTE ---
DATE: 10/17/2018 SUBJECTIVE: He is lying flat in bed. No complaints today. OBJECTIVE: Vital Signs: Blood pressure 130/72, heart rate 82, respirations 16, afebrile. General: No acute distress. Skin: Warm and dry. HEENT: Conjunctivae are pink. Neck: Neck veins are not visible. Cardiovascular: Heart is regular. Lungs: Equal. Abdomen: Obese and soft. Bowel sounds present. Extremities: No edema, clubbing, or cyanosis. IMPRESSION: Acute kidney injury. Resolving. Hemo catheter has been removed. Labs are pending. cc: Isidro Velazco MD
== END 2018-10-17 15:15 | DRG 682 ==
LOC: ED 20:41 → EDIPHOLD 09-26 04:37 → SUATTDRO 09-26 04:37 → 4N 09-26 14:09 → ICU 09-28 17:13 → 4N 10-06 11:14
PROVIDERS: ATTEND Internal Medicine
CPT/HCPCS: 70450; 70551; 71010; 71020; 71045; 71046; 72170; 74246; 76700; 76770; 77001; 80048; 80053; 80069; 80074; 80076; 81001; 82140; 82550; 82553; 82570; 82805; 82948; 83036; 83516; 83520; 83735; 83970; 84100; 84132; 84153; 84155; 84156; 84165; 84166; 84300; 84443; 84484; 85025; 85027; 85610; 85651; 85730; 86038; 86039; 86160; 87040; 87088; 87205; 90732; 93005; 93010; 93306; 93923; 93971; 94640; 94660; 94760; 94761; 96365; 96372; 96375; 97162; 97165; 97530; 97535; 99285; A9270; C1750; C8929; C9113; G0103; J0360; J0610; J1450; J1630; J1644; J1815; J2060; J2270; J2560; J3370; J3486; J7030; J7050; Q9957; S0073; S0164; XXXXX